=== PATIENT | male | born 2000 | race Caucasian/White ===

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

== ENCOUNTER 2021-08-16 17:06 | Emergency (ER) | payer MEDICAID, SELFPAY ==
[2021-08-16 17:18] VITALS: BP 121/76; PULSE 111; RESP 12; TEMP 36.6; O2SAT 99
--- NOTE | 2021-08-16 18:15 | NUR.NOTE ---
Patient changed into blue scrubs. Belongings inventoried. Has earrings and nose piercings in and wallet on his person.Wallet examined for safety.
[2021-08-16 18:40] LABS: Source Nasal/Nares
[2021-08-16 18:47] LABS: Abs Immature Grans 0.07 10^3/uL (0.0-0.06); Absolute Monocyte Count 1.15 10^3/uL (0.1-0.8); Basophils % 0.5; Eosinophils % 0.1; HCT 46.8 % (40.0-50.0); HGB 14.5 g/dL (13.5-17.5); Immature Grans % 0.3; Lymphocytes % 6.8; MCH 28.4 pg (27.0-33.0); MCV 91.8 fL (80-95); MPV 10.5 fL (8.0-11.0); Monocytes % 5.6; Neutrophils % 86.7; Nucleated RBC 0 %; Platelet Count 268 10^3/uL (130-400); RDW 13.2 % (11.8-14.1); RDW-SD 44.7 fL; WBC 20.58 10^3/uL (4.4-10.8)
[2021-08-16 19:12] LABS: ALT 39 U/L (16-63); AST 19 U/L (15-37); Albumin 5.2 g/dL (3.4-5.0); Alkaline Phosphatase 64 U/L (46-116); Anion Gap 11.7 mmol/L (3-11); BUN 14 mg/dL (7-18); Bilirubin, Total 1.4 mg/dL (0.2-1.0); CO2 27.3 mmol/L (21.0-32.0); Calcium 9.9 mg/dL (8.5-10.1); Chloride 102 mmol/L (98-107); Glucose 116 mg/dL (74-106); Potassium 3.7 mmol/L (3.5-5.1); Sodium 141 mmol/L (136-145); TSH (W/Ref FT4) 1.46 uIU/mL (0.36-3.74); Total Protein 8.4 g/dL (6.4-8.2)
[2021-08-16 19:13] LABS: *AMPHETAMINES SCREEN URINE Negative (Negative); *BARBITURATES SCREEN URINE Negative (Negative); *BENZODIAZEPINES SCREEN URINE Negative (Negative); Cannabinoids THC Positive (Negative); Cocaine Screen,Urine Negative (Negative); METHADONE URINE SCREEN Negative (Negative); OPIATES URINE SCREEN Negative (Negative)
[2021-08-16 19:15] LABS: Bilirubin Negative (Negative); Blood Negative (Negative); Clarity Clear (Clear); Glucose Negative (Negative); Ketones Negative (Negative); Leukocyte Esterase Negative (Negative); Nitrite Negative (Negative); Specific Gravity >= 1.030 (1.005-1.025); Urobilinogen 0.2 EU/dL (Up TO 0.2)
[2021-08-16 19:15] LABS: Absolute Eosinophil Count 0.02 10^3/uL (0.0-0.7); Absolute Neutrophil Count 17.84 10^3/uL (1.2-6.7)
[2021-08-16 19:16] LABS: Tricyclic Antidepressants Negative (Negative)
[2021-08-16 19:30] LABS: ETHANOL BLOOD < 3.0 mg/dL (<10)
[2021-08-16 19:31] LABS: Acetaminophen < 2 ug/mL (10-30)
[2021-08-16 19:31] LABS: COVID-19 PCR Negative (Negative)
--- NOTE | 2021-08-16 19:38 | W.ED.GENAD ---
Discharge Plan Disposition Patient Disposition: STILL A PATIENT Condition: Stable Discharge Details Primary Care Provider: Unknown,Unknown ED Provider: Alex Anderson Home Meds and New Rx's Prescriptions: No Action No Known Home Meds 0RF Medical Decision Making 20-year-old gentleman who presents with [facility] police on a mental health warrant for medical screening evaluation and psychiatric screening. He is initially not very forthcoming but does admit to general depression, he did make vague statements to his mother this morning saying that he does not want to live and that he could hang himself but he states that he does not mean this and he does not want to act upon this. There was concern that he wrote a letter stating that he does not want to live and all of the ways that he could kill himself. He has no acute medical concerns or complaints. Plan is to initiate a CPSO, interim safety plan, mental health evaluation and obtain routine screening laboratory values for psychiatric admission. Patient is calm, cooperative, currently has no additional questions or concerns. Laboratory values reveal nonspecific leukocytosis of 20.58. He is afebrile. He has no acute medical concerns or complaints, no meningeal signs, no cough, shortness of breath, abdominal pain, etc. No clear source of infection. Laboratory values otherwise grossly unremarkable. Covid is negative. Patient does report that his mother had recently had Covid Mental health evaluation completed, the physicians certificate emergency examination form has been completed and the second psychiatric evaluation is planned to occur sometime tomorrow Patient has been cooperative during my shift. Listening to music. Ambulating steadily to the restroom without difficulty. Medical Records Medical records reviewed: Yes I reviewed the patient's medical records. Lab Data Lab results reviewed: Yes I reviewed the patient's lab results. Labs: Laboratory Tests Range/Units 08/16/21 08/16/21 08/16/21 18:23 18:25 18:25 WBC (4.4-10.8) 10^3/uL RBC (4.36-5.78) 10^6/uL Hgb (13.5-17.5) g/dL Hct (40.0-50.0) % MCV (80-95) fL MCH (27.0-33.0) pg MCHC (32.0-36.0) % RDW (11.8-14.1) % Plt Count (130-400) 10^3/uL MPV (8.0-11.0) fL Immature Gran % Neutrophils % Lymphocytes % Monocytes % Eosinophils % Basophils % Nucleated RBC % % Absolute Neutrophils (1.2-6.7) 10^3/uL Absolute Lymphocytes (1.2-3.4) 10^3/uL Absolute Monocytes (0.1-0.8) 10^3/uL Absolute Eosinophils (0.0-0.7) 10^3/uL Absolute Basophils (0.0-0.2) 10^3/uL Sodium (136-145) mmol/L Potassium (3.5-5.1) mmol/L Chloride (98-107) mmol/L Carbon Dioxide (21.0-32.0) mmol/L Anion Gap (3-11) mmol/L BUN (7-18) mg/dL Creatinine (0.70-1.30) mg/dL Estimated GFR/1.73 m2 (mL/min/1.73m2) Glucose (74-106) mg/dL Calcium (8.5-10.1) mg/dL Total Bilirubin (0.2-1.0) mg/dL AST (15-37) U/L ALT (16-63) U/L Alkaline Phosphatase (46-116) U/L Total Protein (6.4-8.2) g/dL Albumin (3.4-5.0) g/dL TSH (0.36-3.74) uIU/mL Urine Color (Yellow) Yellow Urine Clarity (Clear) Clear Urine pH (5-8) 6.0 Ur Specific [place] (1.005-1.025) >= 1.030 H Urine Protein (Negative) mg/dL Negative Urine Ketones (Negative) mg/dL Negative Urine Blood (Negative) Negative Urine Nitrite (Negative) Negative Urine Bilirubin (Negative) Negative Urine Urobilinogen (Up TO 0.2) EU/dL 0.2 Ur Leukocyte Esterase (Negative) Negative Urine Glucose (Negative) mg/dL Negative Urine Opiates Screen (Negative) Negative Urine Methadone Screen (Negative) Negative Acetaminophen (10-30) ug/mL Ur Barbiturates Screen (Negative) Negative Ur Tricyclics Screen (Negative) Negative Ur Amphetamines Screen (Negative) Negative U Benzodiazepines Scrn (Negative) Negative Urine Cocaine Screen (Negative) Negative Ur THC Screen (Negative) Positive A Ethyl Alcohol (<10) mg/dL COVID-19 Source Nasal/Nares SARS-CoV-2 (PCR) (Negative) Negative Range/Units 08/16/21 08/16/21 18:34 18:34 WBC (4.4-10.8) 10^3/uL 20.58 H RBC (4.36-5.78) 10^6/uL 5.10 Hgb (13.5-17.5) g/dL 14.5 Hct (40.0-50.0) % 46.8 MCV (80-95) fL 91.8 MCH (27.0-33.0) pg 28.4 MCHC (32.0-36.0) % 31.0 L RDW (11.8-14.1) % 13.2 Plt Count (130-400) 10^3/uL 268 MPV (8.0-11.0) fL 10.5 Immature Gran % 0.3 Neutrophils % 86.7 Lymphocytes % 6.8 Monocytes % 5.6 Eosinophils % 0.1 Basophils % 0.5 Nucleated RBC % % 0 Absolute Neutrophils (1.2-6.7) 10^3/uL 17.84 H Absolute Lymphocytes (1.2-3.4) 10^3/uL 1.40 Absolute Monocytes (0.1-0.8) 10^3/uL 1.15 H Absolute Eosinophils (0.0-0.7) 10^3/uL 0.02 Absolute Basophils (0.0-0.2) 10^3/uL 0.10 Sodium (136-145) mmol/L 141 Potassium (3.5-5.1) mmol/L 3.7 Chloride (98-107) mmol/L 102 Carbon Dioxide (21.0-32.0) mmol/L 27.3 Anion Gap (3-11) mmol/L 11.7 H BUN (7-18) mg/dL 14 Creatinine (0.70-1.30) mg/dL 1.0 Estimated GFR/1.73 m2 (mL/min/1.73m2) >= 60.00 Glucose (74-106) mg/dL 116 H Calcium (8.5-10.1) mg/dL 9.9 Total Bilirubin (0.2-1.0) mg/dL 1.4 H AST (15-37) U/L 19 ALT (16-63) U/L 39 Alkaline Phosphatase (46-116) U/L 64 Total Protein (6.4-8.2) g/dL 8.4 H Albumin (3.4-5.0) g/dL 5.2 H TSH (0.36-3.74) uIU/mL 1.46 Urine Color (Yellow) Urine Clarity (Clear) Urine pH (5-8) Ur Specific [place] (1.005-1.025) Urine Protein (Negative) mg/dL Urine Ketones (Negative) mg/dL Urine Blood (Negative) Urine Nitrite (Negative) Urine Bilirubin (Negative) Urine Urobilinogen (Up TO 0.2) EU/dL Ur Leukocyte Esterase (Negative) Urine Glucose (Negative) mg/dL Urine Opiates Screen (Negative) Urine Methadone Screen (Negative) Acetaminophen (10-30) ug/mL < 2 Ur Barbiturates Screen (Negative) Ur Tricyclics Screen (Negative) Ur Amphetamines Screen (Negative) U Benzodiazepines Scrn (Negative) Urine Cocaine Screen (Negative) Ur THC Screen (Negative) Ethyl Alcohol (<10) mg/dL < 3.0 COVID-19 Source SARS-CoV-2 (PCR) (Negative) HPI General Mode of arrival: ambulatory. Date/Time Provider Initiated Documentation: 08/16/21 17:39. Limitations to Documentation: no limitations. Information obtained by: patient and police. HPI Narrative: This is a 20-year-old gentleman, presenting via [facility] on a mental health warrant for a medical screening evaluation and psychiatric evaluation. Patient initially tells me that he is unsure why he is here. Denies any suicidal or homicidal ideations and reports that he feels safe. He denies recent illness or trauma. He has no acute medical concerns or complaints. He does admit to marijuana use but denies alcohol or any other drug use. He does not take any medications on a daily basis. Upon speaking with [facility], I was able to obtain some collateral information. Apparently the patient has recently moved back into the house with his mother, primarily stays in his room, has had decreased appetite and overall 20 pound weight loss. Apparently he has been depressed, made some suicidal comments to his mother today about wanting to end it all and that he could hang himself. He tells me he did nothing today to actually harm himself and that although he did actually make this statement he did not mean them and does not want to act upon them. His mother believes that he wrote all of this down but has been unable to find a letter in his room. Related Data Home Medications Medication Instructions Recorded Confirmed Unknown [No Known Home Meds] 08/16/21 08/16/21 Allergies Allergy/AdvReac Type Severity Reaction Status Date / Time amoxicillin Allergy rash Verified 08/16/21 17:26 General Stated Complaint: PsychEval RIA: 2 Review of Systems Constitutional Constitutional: Denies fever(s) and Denies weakness ENT Ears, Nose, Mouth, and Throat: Denies neck pain Cardiovascular Cardiovascular: Denies chest pain and Denies dyspnea Respiratory Respiratory: Denies cough and Denies dyspnea Gastrointestinal Gastrointestinal: Denies abdominal pain, Denies nausea and Denies vomiting Musculoskeletal Musculoskeletal: Denies back pain and Denies neck pain Integumentary/Breasts Skin/Breast: Denies rash Neurologic Neurologic: Denies weakness Psychiatric Psychiatric: Reports depression and Denies homicidal ideation PFSH All Active Problems Depression (Acute) sad, withdrawn, loss of interest- no improvment with counseling - meds 05/30 Weight loss (Acute) ? depression related - labs Sadness (Acute) mild depression - will work with counselor 02/26 Routine child health exam (Acute 01/15/12) Normal weight, pediatric, BMI 5th to 84th percentile for age (Acute 11/29/14) History of penicillin allergy (Acute 01/15/12) Family History Mother Healthy adult on routine physical examination Father Healthy adult on routine physical examination Grandparent Heart disease Hyperlipidemia Mental disorder Social History Smoking/Tobacco Use Status: Former Tobacco Use Smoking risk assessment performed?: Yes Alcohol Intake: never Drug use: Occasionally Substance use type: marijuana Do you feel safe at home: Yes Do you feel safe in your relationship?: Yes Exam Const General: cooperative, healthy appearing, comfortable and no acute distress Orientation: alert, awake and oriented x3 HENMT Head: normal to inspection, normocephalic and atraumatic Face and sinus: normal facial exam Mouth: moist mucous membranes Eyes General: appearance normal, both eyes and all related structures Conjunctivae: conjunctivae normal Neck Neck: normal visual inspection, full ROM, no meningeal signs, trachea midline and supple Resp Effort & Inspection: normal respiratory effort and able to speak in complete sentences Auscultation: clear to auscultation bilaterally Cardio Rate: regular rate Rhythm: regular rhythm GI Palpation: soft and nontender Back/Spine/Pelvis Back: No back tenderness Skin General skin exam: no rashes or lesions noted Neuro General: patient alert, patient awake, patient oriented x3, moves all extremities and no focal motor deficits Cognition: normal cognition Speech: speech normal Gait: normal gait Motor: muscle tone normal throughout Sensory Exam: no sensory deficits noted Extrem General: normal to inspection and full ROM Psych Appearance: grossly normal Mental Status: mental status grossly normal Speech and Movement: speech and movement normal Mood: congruent mood Affect: normal affect Attitude: cooperative Thought Process: normal Course Vital Signs Vital signs: Vital Signs Temperature 36.6 C 08/16/21 17:18 Pulse 111 H 08/16/21 17:18 Respiratory Rate 12 08/16/21 17:18 Blood Pressure 121/76 08/16/21 17:18 Pulse Oximetry 99 08/16/21 17:18 Temperature 36.6 C 08/16/21 17:18 Temperature Source Skin 08/16/21 17:18 Pulse 111 H 08/16/21 17:18 Respiratory Rate 12 08/16/21 17:18 Respiratory Effort 08/16/21 17:27 Blood Pressure 121/76 08/16/21 17:18 Pulse Oximetry 99 08/16/21 17:18 Oxygen Delivery Method Room Air 08/16/21 17:18 Oxygen Flow Rate 0 08/16/21 17:18 Pain Level 0 08/16/21 17:18 Lab/Test Results Lab/Test Results: Laboratory Tests Range/Units 08/16/21 08/16/21 08/16/21 18:23 18:25 18:25 WBC (4.4-10.8) 10^3/uL RBC (4.36-5.78) 10^6/uL Hgb (13.5-17.5) g/dL Hct (40.0-50.0) % MCV (80-95) fL MCH (27.0-33.0) pg MCHC (32.0-36.0) % RDW (11.8-14.1) % Plt Count (130-400) 10^3/uL MPV (8.0-11.0) fL Immature Gran % Neutrophils % Lymphocytes % Monocytes % Eosinophils % Basophils % Nucleated RBC % % Absolute Neutrophils (1.2-6.7) 10^3/uL Absolute Lymphocytes (1.2-3.4) 10^3/uL Absolute Monocytes (0.1-0.8) 10^3/uL Absolute Eosinophils (0.0-0.7) 10^3/uL Absolute Basophils (0.0-0.2) 10^3/uL Sodium (136-145) mmol/L Potassium (3.5-5.1) mmol/L Chloride (98-107) mmol/L Carbon Dioxide (21.0-32.0) mmol/L Anion Gap (3-11) mmol/L BUN (7-18) mg/dL Creatinine (0.70-1.30) mg/dL Estimated GFR/1.73 m2 (mL/min/1.73m2) Glucose (74-106) mg/dL Calcium (8.5-10.1) mg/dL Total Bilirubin (0.2-1.0) mg/dL AST (15-37) U/L ALT (16-63) U/L Alkaline Phosphatase (46-116) U/L Total Protein (6.4-8.2) g/dL Albumin (3.4-5.0) g/dL TSH (0.36-3.74) uIU/mL Urine Color (Yellow) Yellow Urine Clarity (Clear) Clear Urine pH (5-8) 6.0 Ur Specific [place] (1.005-1.025) >= 1.030 H Urine Protein (Negative) mg/dL Negative Urine Ketones (Negative) mg/dL Negative Urine Blood (Negative) Negative Urine Nitrite (Negative) Negative Urine Bilirubin (Negative) Negative Urine Urobilinogen (Up TO 0.2) EU/dL 0.2 Ur Leukocyte Esterase (Negative) Negative Urine Glucose (Negative) mg/dL Negative Urine Opiates Screen (Negative) Negative Urine Methadone Screen (Negative) Negative Acetaminophen (10-30) ug/mL Ur Barbiturates Screen (Negative) Negative Ur Tricyclics Screen (Negative) Negative Ur Amphetamines Screen (Negative) Negative U Benzodiazepines Scrn (Negative) Negative Urine Cocaine Screen (Negative) Negative Ur THC Screen (Negative) Positive A Ethyl Alcohol (<10) mg/dL COVID-19 Source Nasal/Nares SARS-CoV-2 (PCR) (Negative) Negative Range/Units 08/16/21 08/16/21 18:34 18:34 WBC (4.4-10.8) 10^3/uL 20.58 H RBC (4.36-5.78) 10^6/uL 5.10 Hgb (13.5-17.5) g/dL 14.5 Hct (40.0-50.0) % 46.8 MCV (80-95) fL 91.8 MCH (27.0-33.0) pg 28.4 MCHC (32.0-36.0) % 31.0 L RDW (11.8-14.1) % 13.2 Plt Count (130-400) 10^3/uL 268 MPV (8.0-11.0) fL 10.5 Immature Gran % 0.3 Neutrophils % 86.7 Lymphocytes % 6.8 Monocytes % 5.6 Eosinophils % 0.1 Basophils % 0.5 Nucleated RBC % % 0 Absolute Neutrophils (1.2-6.7) 10^3/uL 17.84 H Absolute Lymphocytes (1.2-3.4) 10^3/uL 1.40 Absolute Monocytes (0.1-0.8) 10^3/uL 1.15 H Absolute Eosinophils (0.0-0.7) 10^3/uL 0.02 Absolute Basophils (0.0-0.2) 10^3/uL 0.10 Sodium (136-145) mmol/L 141 Potassium (3.5-5.1) mmol/L 3.7 Chloride (98-107) mmol/L 102 Carbon Dioxide (21.0-32.0) mmol/L 27.3 Anion Gap (3-11) mmol/L 11.7 H BUN (7-18) mg/dL 14 Creatinine (0.70-1.30) mg/dL 1.0 Estimated GFR/1.73 m2 (mL/min/1.73m2) >= 60.00 Glucose (74-106) mg/dL 116 H Calcium (8.5-10.1) mg/dL 9.9 Total Bilirubin (0.2-1.0) mg/dL 1.4 H AST (15-37) U/L 19 ALT (16-63) U/L 39 Alkaline Phosphatase (46-116) U/L 64 Total Protein (6.4-8.2) g/dL 8.4 H Albumin (3.4-5.0) g/dL 5.2 H TSH (0.36-3.74) uIU/mL 1.46 Urine Color (Yellow) Urine Clarity (Clear) Urine pH (5-8) Ur Specific [place] (1.005-1.025) Urine Protein (Negative) mg/dL Urine Ketones (Negative) mg/dL Urine Blood (Negative) Urine Nitrite (Negative) Urine Bilirubin (Negative) Urine Urobilinogen (Up TO 0.2) EU/dL Ur Leukocyte Esterase (Negative) Urine Glucose (Negative) mg/dL Urine Opiates Screen (Negative) Urine Methadone Screen (Negative) Acetaminophen (10-30) ug/mL < 2 Ur Barbiturates Screen (Negative) Ur Tricyclics Screen (Negative) Ur Amphetamines Screen (Negative) U Benzodiazepines Scrn (Negative) Urine Cocaine Screen (Negative) Ur THC Screen (Negative) Ethyl Alcohol (<10) mg/dL < 3.0 COVID-19 Source SARS-CoV-2 (PCR) (Negative)
--- NOTE | 2021-08-16 19:46 | PDOC.MHCN_ITS ---
Date of service: 08/16/21 Time of Service: 19:49 Mental Health Crisis Note Presenting Issue How did you arrive at the ED and why did you come: Client arrived at [facility] ED via [place] [employer] after MH warrant was executed. Client is seen tonight for F2F assessment. Precipitating Factors Client denies SI, however reports that he did state earlier that he would hang himself today at 4:52p. Client rates his intent 2/10 and denies current plan. Disposition BEHAVIOR: Client is sitting up in bed dressed in proper paper hospital attire when this field underwriter arrives via zoom. Client appears to be agitated and withdrawn. Client does not understand why he is there and become more agitated when this field underwriter tries to explain it to him. EYE CONTACT: Client makes minimal eye contact. MOOD: Clients mood appears to be depressed and withdrawn. AFFECT: Flat affect, congruent with mood. APPETITE: Client reports that his appetite has not been good, reporting that he is not eating full meals only grazing. SLEEP(trouble falling/staying asleep: Client reports that his sleep has been ok, reporting that he has been getting about 6 hours of sleep a night. Plan Client will remain at [facility] ED pending 2nd certification by a psychiatrist. Physician product development assistant will send exibit b and physician piece to [facility]. Client will be reassessed daily until placement can be secured. Signature Clinician's Name/Title: Padmini Shearer [facility] Emergency Clinician
[2021-08-16 22:32] VITALS: BP 124/70; PULSE 76; RESP 16; TEMP 37; O2SAT 97
[2021-08-17 08:46] LABS: Abs Immature Grans 0.01 10^3/uL (0.0-0.06); Absolute Basophil Count 0.08 10^3/uL (0.0-0.2); Absolute Eosinophil Count 0.08 10^3/uL (0.0-0.7); Absolute Lymphocyte Count 1.84 10^3/uL (1.2-3.4); Absolute Monocyte Count 0.35 10^3/uL (0.1-0.8); Basophils % 1.3; Eosinophils % 1.3; HCT 45.6 % (40.0-50.0); HGB 14.6 g/dL (13.5-17.5); Immature Grans % 0.2; Lymphocytes % 29.4; MCH 28.9 pg (27.0-33.0); MCV 90.3 fL (80-95); MPV 10.3 fL (8.0-11.0); Monocytes % 5.6; Neutrophils % 62.2; Nucleated RBC 0 %; Platelet Count 255 10^3/uL (130-400); RBC 5.05 10^6/uL (4.36-5.78); RDW 13.2 % (11.8-14.1); RDW-SD 43.8 fL; WBC 6.26 10^3/uL (4.4-10.8)
[2021-08-17 08:47] LABS: Absolute Neutrophil Count 3.89 10^3/uL (1.2-6.7)
--- NOTE | 2021-08-17 09:35 | W.EDPROG ---
Date of service: 08/17/21 Time of Service: 09:36 Medical Decision Making 0730 --please see previous providers notes for initial presentation, exam and plan. Case endorsed with plan for psychiatrist to complete second certification this morning. 0900 --patient is requesting STD testing. He is denying any urinary symptoms and declines any prophylactic treatment for STD. Will obtain a contaminated urine sample and test for GC chlamydia. A repeat CBC was obtained due to initial leukocytosis and white blood cell count is within normal limits. 1010 --patient complained of anxiety and requested medication. A dose of Ativan was ordered and he refused stating to the nurse I am not going to be forced to take medications. 1600 --second certificate completed. Case endorsed to Dr. Holguin while awaiting placement. 2320 patient resting comfortably no acute distress. Patient no longer endorsing SI or HI. Calm cooperative. Patient requesting to speak with psychiatric team to discuss the possibility of him going home. Have placed page to Dr. Weeks's team, likely to eval in AM SJ: No documentation on this progress note please see my previous note for this patient's visit on 08/18/2021 Misty Harris: Did not see, evaluate, or treat this patient. Medical Records Medical records reviewed: Yes I reviewed the patient's medical records. Sign Out Sign Out Data: Sign Out Comment: EE. Depression with SI. Has been calm and cooperative. Nonspecific leukocytosis, no signs of infection, plan is to recheck CBC. Awaiting second mental health evaluation tomorrow morning Last updated by Alex Anderson PA at 08/16/21 23:09 Sign Out Comment: Patient remains on EE. Patient stable throughout the night. Pending placement. No interventions throughout the evening. Last updated by Héctor Eller DO at 08/20/21 06:25 Sign Out Comment: 2nd cert and repeat CBC pending No issues overnight Last updated by Bryan Barrientos MD at 08/17/21 06:42 Sign Out Comment: Patient anxious but otherwise cooperative today. He was offered Ativan p.o. but declined. Second certificate completed. Awaiting placement. Last updated by Quita Hamm DO at 08/17/21 15:57 Sign Out Comment: two certifications completed; patient now denying SI/HI, wants to talk to psych team to negotiate dc home; [facility] has denied inpatient admission; page has been placed to Dr. Weeks for re-evaluation. Last updated by Alan Holguin MD at 08/17/21 23:39 Sign Out Comment: No issues or complications overnight. Patient stable throughout the night and slept well. Patient would like to talk to psychiatric team to negotiate discharge home. Patient currently denying suicidal and homicidal ideations. Last updated by Héctor Eller DO at 08/18/21 08:22 Sign Out Comment: Patient is here for involuntary hold. Pending inpatient psych placement. He is requesting to have a shower. In-house in bed not available till after 7 PM. Has been evaluated by Dr. Wasserman with [facility] and has had 2 an EKG as evaluation today. They will reevaluate tomorrow. He has been unwilling with medication management. Anxious but otherwise cooperative. Last updated by Es Marrufo at 08/18/21 15:39 Sign Out Comment: Patient remains in emergency department with anxiety but family is at bedside and patient has continued to be calm and cooperative. Patient does state some continued suicidal ideations but is otherwise stable. Patient signed out to Dr. Eller pending bed availability. Last updated by Segun Ascencio NP at 08/18/21 23:38 Sign Out Comment: Patient stable throughout the night. Pending placement in mental health for evaluation. No interventions throughout the evening. Last updated by Héctor Eller DO at 08/19/21 08:19 Sign Out Comment: Remains EE, seen by HARPREET chong today. Last updated by Bryan Barrientos MD at 08/19/21 18:58 Discharge Plan Disposition Patient Disposition: HOME Condition: Improving Discharge Details Clinical Impression: Major depression, Sadness Primary Care Provider: Unknown,Unknown ED Provider: Segun Ascencio Home Meds and New Rx's Prescriptions: No Action No Known Home Meds 0RF Discharge Instructions Instructions: Depression (ED), Help Prevent Suicide (ED), Suicide Prevention (ED) Additional Instructions: Please follow the provided safety plan which includes daily check ins with [facility] [employer]. Otherwise used discussed coping mechanisms and follow safety plan for safe living environment. If there are any further concerns with worsening symptoms, return of suicidality, or concerning behavior return immediately to the emergency department for reassessment and further reestablishment of psychiatric plan of care. It will also be important for you to follow-up with your primary care provider later this week for medical reassessment and consideration of possible prescription medications to help with your symptoms. We have faxed information to [facility] and feel free to contact their office tomorrow for arrangement of follow-up appointment. Referrals: [facility] [Provider Group] - 5 days Discharge Data Discharge Date/Time-TO BE ENTERED AT DEPARTURE: 08/20/21 11:09
[2021-08-17 09:50] LABS: Bilirubin Negative (Negative); Blood Negative (Negative); Clarity Clear (Clear); Glucose Negative (Negative); Ketones Negative (Negative); Leukocyte Esterase Negative (Negative); Nitrite Negative (Negative); Specific Gravity >= 1.030 (1.005-1.025); pH 6.5 (5-8)
[2021-08-17 09:59] LABS: Bacteria Negative HPF (Negative); C & S Indicated? No; Casts 0-2 Hyaline LPF (Negative); Crystals Negative HPF (Negative); Epithelial Cells Rare HPF (Negative); Mucus Heavy (Negative); RBC Negative HPF (0-2); WBC Negative HPF (0-5)
--- NOTE | 2021-08-17 10:48 | PDOC.MHCN ---
Date of service: 08/17/21 Time of Service: 09:48 Mental Health Crisis Note Presenting Issue How did you arrive at the ED and why did you come: Client arrived at [facility] Ed via police after a MH warrant was executed. Client is seen this morning for daily assessment while awiting for 2nd certification. Precipitating Factors Client currently denies SI, stating I want to punch the wall or bang me head against the wall all because I am in here. I don't know how this is supposed to be helping me, it is making me feel worse. Disposition BEHAVIOR: Client is sitting up in hospital bed dressed in proper paper hospital attire when this expert medical writer arrives via zoom. Client appears to be agitated and states I don't get what the point of any of this is, I didn't want to kill myself before but if I sit in this room much longer I will. I am going to lose my shit if I am stuck in here for more than 2 more hours. EYE CONTACT: Client makes minimal eye contact. MOOD: Clients mood appears to be agitated and withdrawn. AFFECT: labile APPETITE: Client reports that he has not eaten since being at the hospital, then states that he ate something last night but can't remember what it was. SLEEP(trouble falling/staying asleep: Client states he slept about 1 hour last night. Plan Client will remain at [facility] ED pending 2nd certification by a psychiatrist that will happen later today. Client will be re-assessed by [facility] ES 2x daily until placement is secured. Safety plan in place with ED staff. Signature Clinician's Name/Title: Padmini Shearer, [facility] Emergency Clinician.
--- NOTE | 2021-08-17 13:45 | NUR.NOTE ---
Nursing Note: Pt talking with Mental Health for re-cert at this time, CPSO in place, continue to monitor.
--- NOTE | 2021-08-17 16:17 | PDOC.MHCN_ITS ---
Date of service: 08/17/21 Time of Service: 13:15 Mental Health Crisis Note Presenting Issue How did you arrive at the ED and why did you come: Client arrived at [facility] ED on 08/16/21 after a MH warrant was executed. Client is seen today for 2nd certification by a psychiatrist from [facility]. Precipitating Factors Client states that he has depression, and used to feel suicidal however is denying it at this moment. Disposition BEHAVIOR: Client is withdrawn, however does engage in conversation with psychiatrist. EYE CONTACT: Client makes fair eye contact. MOOD: Clients mood appears to be withdrawn and hopeless. AFFECT: Clients affect is flat. APPETITE: Did not assess. SLEEP(trouble falling/staying asleep: Did not assess. Plan Psychiatrist signed 2nd certification. Client will remain at [facility] ED on involuntary status pending admission to an inpatient facility. [place] [facility], [facility], and [facility]. Signature Clinician's Name/Title: JONATHAN Ramos Emergency Clinician
[2021-08-17 21:00] VITALS: BP 123/74; PULSE 69; RESP 16; TEMP 36.1; O2SAT 96
--- NOTE | 2021-08-17 21:14 | NUR.NOTE ---
code elvira was not called, erroneous entry- was unable to remove the check hansel. TONEYB
--- NOTE | 2021-08-18 08:40 | PDOC.MHCN_ITS ---
<Zain Jackson - Last Filed: 08/19/21 09:28> Date of service: 08/18/21 Time of Service: 08:40 Mental Health Crisis Note <Zain Jackson - Last Filed: 08/19/21 09:28> Presenting Issue How did you arrive at the ED and why did you come: Client arrived by [facility] after MH warrant was issued for immediate concerns of client safety. Precipitating Factors Client denies SI/HI but reports being in ED is making him have thoughts of wanting to bash his head against the torres. Disposition BEHAVIOR: Client is cooperative but begins to shutdown when told his second certification passe EYE CONTACT: Normal. MOOD: Stressed and anxious AFFECT: Congruent with mood. APPETITE: Client reports minimal appetite due to anxiety. SLEEP(trouble falling/staying asleep: Client reports he slept better last night because his mom was there. Plan Client is on EE and will stay at [facility] untill involuntary placement can be found. Referrals have been sent to [facility], [facility], [facility], and [facility]. Client will be reassessed twice daily while awaiting placement by [facility]. Signature Clinician's Name/Title: Zain Jackson BA <Misty Harris MD - Last Filed: 08/21/21 13:11> Signature Clinician's Name/Title: Zain Harris: I did not see, evaluate, or treat this patient.
--- NOTE | 2021-08-18 08:45 | ED.PROG_ITS ---
Date of service: 08/18/21 Time of Service: 08:45 Medical Decision Making 0846: August 18, 2021:SJ: Care assumed from provider (Jasiel Eller DO) Please see their initial HPI, PE, and documentation. Discussed patient details and case and pending workup and disposition. Patient is hemodynamically stable, and alert and oriented. Patient safety observer is at bedside, patient is in clear view - of nurses station. Patient is ambulatory to the bathroom without assistance. Per staffing mgr patient is requesting to leave and gather his things. [facility] contacted for reeval. Zain with [facility] is on phone to speak with patient now. 0903: According to Zain with [facility] patient is becoming angry, anxious, distrustful. Patient is requesting for us to call his father Josette to update him. However his father is not on the HIPAA list. Patient does have a cell phone in there with him. Care management paged by corrections unit supervisor to establish a safety plan. There is order for lorazepam 0.5 mg p.o. 0911: Spoke with patient regarding plan of care he verbalizes understanding that he is on a hold and at this time cannot leave. I did offer lorazepam again which patient declined. He is concerned because he has a history of being addicted to medications. 0950: Spoke with patients Father Piero [phone] he recommends a nicotine patch as patient is nicotine addicted and see addicted. I did inform him that the plan is to establish a care plan later on today with care management. At this time patient his mother is at the bedside. He is requesting to come visit and bring patient abdominals. Will order a nicotine patch. Informed by staffing mgr patient does have a Nicotrol device in the room with him. 1049: Spoke with Dr. Fatima psychiatrist with the [facility], discussed patient case and details. He reports that he will speak with patient around noon today. 1230: Dr. Fatima psychiatrist at bedside via Zoom for telehealth meeting. I will performed with warehouse engineer and care management and primary nurse. We did determine the need for transparency and patient needs to be aware that if he does get a room upstairs he will not be allowed to have his cell phone at 1 visit or time. Can either have mom visit or dad visit. Please see care management safety plan. 1305: Spoke with Dr. Fatima with [facility] psychiatry who recommends his recommendation for Wellbutrin XL 150 mg daily however he also states that according to his assessment patient is not willing to discuss medication op tions. He states that the mom and patient reiterated to him that there was a miscommunication and misunderstanding from the events earlier regarding the cell phone and the suicidal statements made by the patient which he wrote he would hang him self at 4:52 PM he is willing to speak with mental health if they desire to discuss options. At this time we will continue to work with [facility] and have ongoing conversations about inpatient placement and or disposition. 1630: Care is to be handed off to oncoming provider Marco Antonio Ascencio SOFTWARE TEST DEVELOPER pending inpatient psych placement. Patient case and details discussed with him. According to Tea Leaf Reader Ailyn, no In-House availability for a bed until after 7pm. Patient has remained calm, cooperative and hemodynamically stable throughout stay. This note was created using Weebly dictation system. Please disregard any typos, oddities of phrase, or grammatical errors. Misty Harris: Pt was signed out to Marco Antonio Ascencio. I was not asked to see this patient, and I did not see, evaluate, or treat this patient. Lab Data Lab results reviewed: Yes I reviewed the patient's lab results. Lab results narrative: Laboratory Tests Range/Units 08/16/21 08/16/21 08/16/21 18:23 18:25 18:25 WBC (4.4-10.8) 10^3/uL RBC (4.36-5.78) 10^6/uL Hgb (13.5-17.5) g/dL Hct (40.0-50.0) % MCV (80-95) fL MCH (27.0-33.0) pg MCHC (32.0-36.0) % RDW (11.8-14.1) % Plt Count (130-400) 10^3/uL MPV (8.0-11.0) fL Immature Gran % Neutrophils % Lymphocytes % Monocytes % Eosinophils % Basophils % Nucleated RBC % % Absolute Neutrophils (1.2-6.7) 10^3/uL Absolute Lymphocytes (1.2-3.4) 10^3/uL Absolute Monocytes (0.1-0.8) 10^3/uL Absolute Eosinophils (0.0-0.7) 10^3/uL Absolute Basophils (0.0-0.2) 10^3/uL Sodium (136-145) mmol/L Potassium (3.5-5.1) mmol/L Chloride (98-107) mmol/L Carbon Dioxide (21.0-32.0) mmol/L Anion Gap (3-11) mmol/L BUN (7-18) mg/dL Creatinine (0.70-1.30) mg/dL Estimated GFR/1.73 m2 (mL/min/1.73m2) Glucose (74-106) mg/dL Calcium (8.5-10.1) mg/dL Total Bilirubin (0.2-1.0) mg/dL AST (15-37) U/L ALT (16-63) U/L Alkaline Phosphatase (46-116) U/L Total Protein (6.4-8.2) g/dL Albumin (3.4-5.0) g/dL TSH (0.36-3.74) uIU/mL Urine Color (Yellow) Yellow Urine Clarity (Clear) Clear Urine pH (5-8) 6.0 Ur Specific [place] (1.005-1.025) >= 1.030 H Urine Protein (Negative) mg/dL Negative Urine Ketones (Negative) mg/dL Negative Urine Blood (Negative) Negative Urine Nitrite (Negative) Negative Urine Bilirubin (Negative) Negative Urine Urobilinogen (Up TO 0.2) EU/dL 0.2 Ur Leukocyte Esterase (Negative) Negative Urine RBC (0-2) HPF Urine WBC (0-5) HPF Ur Epithelial Cells (Negative) HPF Urine Crystals (Negative) HPF Urine Bacteria (Negative) HPF Urine Casts (Negative) LPF Urine Mucus (Negative) Ur Culture Indicated? Urine Glucose (Negative) mg/dL Negative Urine Opiates Screen (Negative) Negative Urine Methadone Screen (Negative) Negative Acetaminophen (10-30) ug/mL Ur Barbiturates Screen (Negative) Negative Ur Tricyclics Screen (Negative) Negative Ur Amphetamines Screen (Negative) Negative U Benzodiazepines Scrn (Negative) Negative Urine Cocaine Screen (Negative) Negative Ur THC Screen (Negative) Positive A Ethyl Alcohol (<10) mg/dL Chlamydia DNA Probe Chlamydia/GC DNA Source COVID-19 Source Nasal/Nares SARS-CoV-2 (PCR) (Negative) Negative N.gonorrhoeae DNA Probe Range/Units 08/16/21 08/16/21 08/17/21 18:34 18:34 08:40 WBC (4.4-10.8) 10^3/uL 20.58 H 6.26 D RBC (4.36-5.78) 10^6/uL 5.10 5.05 Hgb (13.5-17.5) g/dL 14.5 14.6 Hct (40.0-50.0) % 46.8 45.6 MCV (80-95) fL 91.8 90.3 MCH (27.0-33.0) pg 28.4 28.9 MCHC (32.0-36.0) % 31.0 L 32.0 RDW (11.8-14.1) % 13.2 13.2 Plt Count (130-400) 10^3/uL 268 255 MPV (8.0-11.0) fL 10.5 10.3 Immature Gran % 0.3 0.2 Neutrophils % 86.7 62.2 Lymphocytes % 6.8 29.4 Monocytes % 5.6 5.6 Eosinophils % 0.1 1.3 Basophils % 0.5 1.3 Nucleated RBC % % 0 0 Absolute Neutrophils (1.2-6.7) 10^3/uL 17.84 H 3.89 Absolute Lymphocytes (1.2-3.4) 10^3/uL 1.40 1.84 Absolute Monocytes (0.1-0.8) 10^3/uL 1.15 H 0.35 Absolute Eosinophils (0.0-0.7) 10^3/uL 0.02 0.08 Absolute Basophils (0.0-0.2) 10^3/uL 0.10 0.08 Sodium (136-145) mmol/L 141 Potassium (3.5-5.1) mmol/L 3.7 Chloride (98-107) mmol/L 102 Carbon Dioxide (21.0-32.0) mmol/L 27.3 Anion Gap (3-11) mmol/L 11.7 H BUN (7-18) mg/dL 14 Creatinine (0.70-1.30) mg/dL 1.0 Estimated GFR/1.73 m2 (mL/min/1.73m2) >= 60.00 Glucose (74-106) mg/dL 116 H Calcium (8.5-10.1) mg/dL 9.9 Total Bilirubin (0.2-1.0) mg/dL 1.4 H AST (15-37) U/L 19 ALT (16-63) U/L 39 Alkaline Phosphatase (46-116) U/L 64 Total Protein (6.4-8.2) g/dL 8.4 H Albumin (3.4-5.0) g/dL 5.2 H TSH (0.36-3.74) uIU/mL 1.46 Urine Color (Yellow) Urine Clarity (Clear) Urine pH (5-8) Ur Specific [place] (1.005-1.025) Urine Protein (Negative) mg/dL Urine Ketones (Negative) mg/dL Urine Blood (Negative) Urine Nitrite (Negative) Urine Bilirubin (Negative) Urine Urobilinogen (Up TO 0.2) EU/dL Ur Leukocyte Esterase (Negative) Urine RBC (0-2) HPF Urine WBC (0-5) HPF Ur Epithelial Cells (Negative) HPF Urine Crystals (Negative) HPF Urine Bacteria (Negative) HPF Urine Casts (Negative) LPF Urine Mucus (Negative) Ur Culture Indicated? Urine Glucose (Negative) mg/dL Urine Opiates Screen (Negative) Urine Methadone Screen (Negative) Acetaminophen (10-30) ug/mL < 2 Ur Barbiturates Screen (Negative) Ur Tricyclics Screen (Negative) Ur Amphetamines Screen (Negative) U Benzodiazepines Scrn (Negative) Urine Cocaine Screen (Negative) Ur THC Screen (Negative) Ethyl Alcohol (<10) mg/dL < 3.0 Chlamydia DNA Probe Chlamydia/GC DNA Source COVID-19 Source SARS-CoV-2 (PCR) (Negative) N.gonorrhoeae DNA Probe Range/Units 08/17/21 08/17/21 09:38 09:40 WBC (4.4-10.8) 10^3/uL RBC (4.36-5.78) 10^6/uL Hgb (13.5-17.5) g/dL Hct (40.0-50.0) % MCV (80-95) fL MCH (27.0-33.0) pg MCHC (32.0-36.0) % RDW (11.8-14.1) % Plt Count (130-400) 10^3/uL MPV (8.0-11.0) fL Immature Gran % Neutrophils % Lymphocytes % Monocytes % Eosinophils % Basophils % Nucleated RBC % % Absolute Neutrophils (1.2-6.7) 10^3/uL Absolute Lymphocytes (1.2-3.4) 10^3/uL Absolute Monocytes (0.1-0.8) 10^3/uL Absolute Eosinophils (0.0-0.7) 10^3/uL Absolute Basophils (0.0-0.2) 10^3/uL Sodium (136-145) mmol/L Potassium (3.5-5.1) mmol/L Chloride (98-107) mmol/L Carbon Dioxide (21.0-32.0) mmol/L Anion Gap (3-11) mmol/L BUN (7-18) mg/dL Creatinine (0.70-1.30) mg/dL Estimated GFR/1.73 m2 (mL/min/1.73m2) Glucose (74-106) mg/dL Calcium (8.5-10.1) mg/dL Total Bilirubin (0.2-1.0) mg/dL AST (15-37) U/L ALT (16-63) U/L Alkaline Phosphatase (46-116) U/L Total Protein (6.4-8.2) g/dL Albumin (3.4-5.0) g/dL TSH (0.36-3.74) uIU/mL Urine Color (Yellow) Dark Yellow Urine Clarity (Clear) Clear Urine pH (5-8) 6.5 Ur Specific [place] (1.005-1.025) >= 1.030 H Urine Protein (Negative) mg/dL Trace H Urine Ketones (Negative) mg/dL Negative Urine Blood (Negative) Negative Urine Nitrite (Negative) Negative Urine Bilirubin (Negative) Negative Urine Urobilinogen (Up TO 0.2) EU/dL 1.0 H Ur Leukocyte Esterase (Negative) Negative Urine RBC (0-2) HPF Negative Urine WBC (0-5) HPF Negative Ur Epithelial Cells (Negative) HPF Rare Urine Crystals (Negative) HPF Negative Urine Bacteria (Negative) HPF Negative Urine Casts (Negative) LPF 0-2 Hyaline Urine Mucus (Negative) Heavy Ur Culture Indicated? No Urine Glucose (Negative) mg/dL Negative Urine Opiates Screen (Negative) Urine Methadone Screen (Negative) Acetaminophen (10-30) ug/mL Ur Barbiturates Screen (Negative) Ur Tricyclics Screen (Negative) Ur Amphetamines Screen (Negative) U Benzodiazepines Scrn (Negative) Urine Cocaine Screen (Negative) Ur THC Screen (Negative) Ethyl Alcohol (<10) mg/dL Chlamydia DNA Probe Cancelled Chlamydia/GC DNA Source Cancelled COVID-19 Source SARS-CoV-2 (PCR) (Negative) N.gonorrhoeae DNA Probe Cancelled Exam Const General: cooperative, healthy appearing, well developed and well groomed Nutritional Appearance: thin Orientation: alert, awake and oriented x3 Limitations: behavioral limitations Psych Appearance: well kempt Speech and Movement: speech and movement normal Mood: irritable mood Affect: normal affect Attitude: cooperative and guarded Thought Process: normal Thought Content: suicidality (As per HPI) Sign Out Sign Out Data: Sign Out Comment: EE. Depression with SI. Has been calm and cooperative. Nonspecific leukocytosis, no signs of infection, plan is to recheck CBC. Awaiting second mental health evaluation tomorrow morning Last updated by Alex Anderson PA at 08/16/21 23:09 Sign Out Comment: Patient remains on EE. Patient stable throughout the night. Pending placement. No interventions throughout the evening. Last updated by Héctor Eller DO at 08/20/21 06:25 Sign Out Comment: 2nd cert and repeat CBC pending No issues overnight Last updated by Bryan Barrientos MD at 08/17/21 06:42 Sign Out Comment: Patient anxious but otherwise cooperative today. He was offered Ativan p.o. but declined. Second certificate completed. Awaiting placement. Last updated by Quita Hamm DO at 08/17/21 15:57 Sign Out Comment: two certifications completed; patient now denying SI/HI, wants to talk to psych team to negotiate dc home; [facility] has denied inpatient admission; page has been placed to Dr. Weeks for re-evaluation. Last updated by Alan Holguin MD at 08/17/21 23:39 Sign Out Comment: No issues or complications overnight. Patient stable throughout the night and slept well. Patient would like to talk to psychiatric team to negotiate discharge home. Patient currently denying suicidal and homicidal ideations. Last updated by Héctor Eller DO at 08/18/21 08:22 Sign Out Comment: Patient is here for involuntary hold. Pending inpatient psych placement. He is requesting to have a shower. In-house in bed not available till after 7 PM. Has been evaluated by Dr. Fatima with [facility] and has had 2 an EKG as evaluation today. They will reevaluate tomorrow. He has been unwilling with medication management. Anxious but otherwise cooperative. Last updated by Es Marrufo at 08/18/21 15:39 Sign Out Comment: Patient remains in emergency department with anxiety but family is at bedside and patient has continued to be calm and cooperative. Patient does state some continued suicidal ideations but is otherwise stable. Patient signed out to Dr. Eller pending bed availability. Last updated by Segun Ascencio, SOFTWARE TEST DEVELOPER at 08/18/21 23:38 Sign Out Comment: Patient stable throughout the night. Pending placement in mental health for evaluation. No interventions throughout the evening. Last updated by Héctor Eller DO at 08/19/21 08:19 Sign Out Comment: Remains EE, seen by [facility] chong today. Last updated by Bryan Barrientos MD at 08/19/21 18:58 Discharge Plan Disposition Patient Disposition: HOME Condition: Improving Discharge Details Clinical Impression: Major depression, Sadness Primary Care Provider: Unknown,Unknown ED Provider: Segun Ascencio Home Meds and New Rx's Prescriptions: No Action No Known Home Meds 0RF Discharge Instructions Instructions: Depression (ED), Help Prevent Suicide (ED), Suicide Prevention (ED) Additional Instructions: Please follow the provided safety plan which includes daily check ins with [facility] human services. Otherwise used discussed coping mechanisms and follow safety plan for safe living environment. If there are any further concerns with worsening symptoms, return of suicidality, or concerning behavior return immediately to the emergency department for reassessment and further reestablishment of psychiatric plan of care. It will also be important for you to follow-up with your primary care provider later this week for medical reassessment and consideration of possible prescription medications to help with your symptoms. We have faxed information to [facility] and feel free to contact their office tomorrow for arrangement of follow-up appointment. Referrals: [facility] [Provider Group] - 5 days Discharge Data Discharge Date/Time-TO BE ENTERED AT DEPARTURE: 08/20/21 11:09
--- NOTE | 2021-08-18 09:17 | PDOC.CMSAFED ---
- If Service Date Differs Date of service: 08/18/21 Time of Service: 09:17 Care Management Safety Plan Status: Involuntary - Reason for Wait Reason for Wait: Inpatient Admission INVOLUNTARY FOR INPATIENT PSYCHIATRIC STABILIZATION. Ijeoma is a 20 year old male who presented to the ED via [facility] on a mental health warrant for EE. He reportedly made suicidal statements to his mother and wrote a letter stating that he wants to end it all and explaining how he would do that, specifically by hanging himself. Per his mother, he has been depressed, decreased appetite and lost 20 pound weight loss. Per report, he recently moved in with his mother after a falling out with his friend/roommate. Ijeoma had a second certification which was upheld by the Psychiatrist from [facility]. He has also been seen by Dr. Weeks, who asked for his EE status to be reconsidered. He is screened twice daily by [facility], once by a [facility]. Leticia HP, met with him and agreed that he should remain held involuntarily. There was a huddle this afternoon with FENG Suggs; MAAURI Whitten; AMAURI Robertson Eyedotter; and CARLIE Bradshaw. There was a discussion about him moving to M/S, if he remains stable. Concerns that were voiced were that he currently has his cell phone in the room, which would need to be removed PRIOR to him moving upstairs. Also, he is allowed a consistent visitor in the ED, and his mother has been with him overnight. If he moves to M/S, the visitation will be restricted to 12-6pm, and this would need to be made clear to both the patient and his mother. At this time, he will remain in the ED. Safety plan has been established to meet the needs of the patient, and consideration of the care team, to adhere to patient goals, identify restrictions based on behavioral status, address nutrition, and determine allowed personal belongings, tools for hygiene and personal care. Determine level of activity including ambulation, level of supervision, visitors, and determine privileges based on behaviors and level of engagement by pt. SAFETY PLAN: 1. Will remain on SI/HI precautions. In Paper Clothes 2. Will remain in room under direct supervision of one-on-one staff at all times provided by [employer]; WILLIAM, ROBIN night shift supervisor. 3. May have paper cups, plates, finger foods as well as a cardboard spoon 4. Follow [facility] Management of the Admitted Behavioral Health Patient policy. 5. Comfort bath system or shower, at RN discretion. 6. Personal belongings at RN discretion. 7. Visitors: Mother, at RN discretion. 8. Activities: soft cart items, TV, other activity items at RN discretion. 9. Bathroom privileges with supervision while in ED, if on M/S, with no limitation. 10. Phone: Ingoing/Outgoing calls at RN discretion. 11. Due to INVOLUNTARY status, patient is being held at [facility] by the Department of Mental Health ([facility]) until 2nd certification by [facility] Psychiatrist can be performed (within 24 hours). Staff will provide de-escalation support (CPI) as needed. If patient wishes to leave [facility], staff will contact [facility] Crisis Screener ([phone]) and On-Call Carpet Finishing Supervisor ([phone]) as soon as possible. In the event of elopement, notify [facility] Police ([phone]). Patient is currently involuntarily at [facility]. [facility] Frontline Cpht will continue seeking placement. Please contact the Customer Service Sales Associate Carpet Finishing Supervisor ([phone]) for any needed changes to Safety Plan. Safety plan has been provided to interdepartmental care team. Patient will be transported by oncologist at time of discharge.
--- NOTE | 2021-08-18 13:21 | W.PSYCHCONSU ---
Date of service: 08/18/21 Time of Service: 13:21 History of Present Illness History of Present Illness Chief Complaint: It was all a miscommunicarion Narrative: 24 hour telepsychiatry consulation requested by Dr. Cisneros for evaluation of depression and treatment recommendations. Seen through telemdicine at [facility] accompanied by his mother. Consent for telemedicine obtained. He was admitted to the ED on a mental health warrant that was executed after his mother believed that he intended to commit suicide by hanging at 4:52 PM on August. As a result, he was brought to ED by Evita JAMES, EE was initiated by [facility] and recertified by [facility] psychiatrist. On exam today, he is insisting that all of the events that led to his being brought in and held are a misunderstanding based on micocommunication and that continued admission in the ED Is only make things worse. He acknowledges a history of depression starting in middle school that was worsened at around age 15. He took fluoxetine for about a month and he feels that it make him feel more angry. He endorses a history of suicidal ideation, but currently denies any SI, plan, or intent. He acknowledges often writing down his suicida thoughts and often detailing plans on how he would end his life. He indicates he wrote the things down in his phone as a way of coping with my feelings. He acknowledges considerable difficulty articulating and communicating his emotional states to others, partly in an effort to not be a burden to others. He denies any past suicide attempts, but described some punchingof torres and head banging recently out of extreme fusrtraion with his current situation. He denies any symptoms of henny or psychosis. He reports two past concussions, bother sports related. He currently is living with his mother for the last 6 weeks. He had been living with a a good friend with whom he abruptly had a falling out. He indicates his friend's girlfriend was moving out and he helped her move out and subsequently had sex with her, which led to the rupture in the friendship. He moved in with his mother ands experienced worsened depressive symptoms then with low mood, poor sleep, low energy, decreased appetite and weight loss, and feelings of guilt more prominent. He and his mother reports that in the last month or so, he has been eating and sleeping better, and showed more initiative and was able to get a job at [employer]. Substance use is positive for nicotine and cannabis. He denies using alcohol. He has used psychedleics in the past as well as misused prescription opioids and benzodiazepines to the point he would experience mild withdrawal symptoms upon stopping. He was ableto stop onhis opwn at about age 16 after being sent to summer camp. School has been experienced as a waste of time. He denies any learning disabilities, attention, or behavior problems in school and completed about but 1-2 credits of high school. 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 He identifies running, lifting weights, writing, playing music as primary coping strategies. He has few social supports right now asisde from one friernd and his mother. We discuss treatment options and he insists that this isn't helpful. I recommend a trial of bupropion as potentially beneficial and he indicates I'll think about taking in a week of two after I get out of here. I discuss the case with the attending and share the perspective articulated by both the patient and his mother that there appears to have been some level of misunderstanding what his stated intent was in regards to self harm and suicide. This information may be useful for the crisis service to consider in light of the pending involutary admission and disposition planning. Assessment and Plan Assessment and plan (1) Major depression: Status: Chronic Assessment and plan: Consider wellbutrin XL 150 mg QAM Continue evaluation of need for involuntary psychiatric admission vs. safety planning and close follow up by mental health Review of Systems All systems reviewed & are unremarkable except as noted in HPI and below Psychiatric Psychiatric: Reports abnormal sleep pattern, Reports change in appetite, Reports depression, Reports irritability and Reports suicidal ideation [facility] All Active Problems Major depression (Chronic) Depression (Acute) sad, withdrawn, loss of interest- no improvment with counseling - meds 05/30 Weight loss (Acute) ? depression related - labs Sadness (Acute) mild depression - will work with counselor 02/26 Routine child health exam (Acute 01/15/12) Normal weight, pediatric, BMI 5th to 84th percentile for age (Acute 11/29/14) History of penicillin allergy (Acute 01/15/12) Family History Mother Healthy adult on routine physical examination Father Healthy adult on routine physical examination Grandparent Heart disease Hyperlipidemia Mental disorder Social History Smoking/Tobacco Use Status: Former Tobacco Use Smoking risk assessment performed?: Yes Alcohol Intake: never Drug use: Occasionally Substance use type: marijuana Do you feel safe at home: Yes Do you feel safe in your relationship?: Yes Exam Psych Appearance: grossly normal Speech and Movement: speech and movement normal Mood: dysthymic mood and angry Affect: dysphoric affect and irritable affect Attitude: guarded Thought Process: circumstantial Thought Content: other (Denies suicidal thoughts, plan, intent) Insight: fair Judgment: fair Results Last Vital Signs Temp 36.1 C L 08/17/21 21:00 Pulse 69 08/17/21 21:00 Resp 16 08/17/21 21:00 BP 123/74 08/17/21 21:00 Pulse Ox 96 08/17/21 21:00 Labs Result diagrams: 08/17/21 08:40 08/16/21 18:34 Consent/Time spent Consent/Time Spent The patient has consented to a virtual communication with the provider: Yes Visit performed via: Telehealth Time Spent (minutes): 90
--- NOTE | 2021-08-18 21:14 | PDOC.MHCN_ITS ---
Date of service: 08/18/21 Time of Service: 21:14 Mental Health Crisis Note Presenting Issue How did you arrive at the ED and why did you come: Pt presented to the ED on 08.16.2021 via a Mental Health warrant exicuted by JAMA Shearer after reports from the mother that he had expressed SI with plan, intent and date/time. Precipitating Factors Pt is denying SI and HI at the time of his requested assessment at around 2pm today. He is not showing signs of delusions. Disposition BEHAVIOR: Pt presented as manipulative I'm not giving anymore when I am not being heard or treated since my arrival. Pt and his mother, reported he has not received a shower and mother has asked for a copy of his warrant since 8:30am on 08.18.2021. This clinician reminded the mother, who used to worked for [facility] not that long ago, that 1. the Pt is an adult and so she would not be able to gain access to his PHI without a ADELAIDA and 2. if the Pt wanted a copy of his PHI he would need to request in writing a copy of said request, and it would go to management to decide further action. It is important to note that the mother is the one who gave information [facility] about her son's reports of suicide, intent and plan to the [facility] and that she did not want [facility] to show in person as she feared he would elope and that he would put him in imminent danger if that happened. Mother and Pt today stated that there was a misunderstanding of information shared about his SI, he has and old phone that he used to write his plans etc on. Pt reported that said threats to harm himself were from years ago and nothing was current. Pt, during today's requested assessment, made statements about elopement and he was informed that ED staff would not prevent him from doing so however, if he did, law enforcement would be notified and he would be brought back to [facility] once found. Pt reported he is not getting any treatment while at [facility]. This clinician acknowledged that [facility] is not the best placement for treatment however that is what is availble until appropriate placement is found. At the same time this clinician reminded the Pt that what was offered was medication management to which according to [facility] documentation from Dr. eWeks the Pt has declined stating I'll think about taking in a week of two after I get out of here per Dr. Weeks's note. In addition, the Pt reported to Dr. Weeks that since moving in with his mother 6 week ago he has experienced worsened depressive symptoms then with low mood, poor sleep, low energy, decreased appetite and weight loss, and feelings of guilt more prominent.?Although reported during this assessment, this had been improving prior to admission to [facility]. EYE CONTACT: Consistent and intense. MOOD: Pt presented as showing no insight or remorse for his actions and manipulative I'm not giving any more when I am not getting anything back. He presents as anxious and repetitive with trying to convince this clinician to release him to his mother on a safety plan. AFFECT: Blunted and intense. APPETITE: Pt reported he is not eating well as he is nautious and sick after eating this place is making me worse. SLEEP(trouble falling/staying asleep: Pt reported that he is not sleeping well due to the stress he is experiencing. Plan This clinician explained to the Pt that at this time, it is not this clinician's professional observation that he should be safety planned home. It is this cl inicians belief that the Pt is still meeting criteria for inpatient treatment due to the reported, per his mother's report to JAMA Shearer's, suicide letter left with specific details, intent and plan, his lack of insight, judgment, remorse and willingness to engage in treatment while in the ED waiting for placement. Pt will continue to be assessed twice daily by [facility] and placement sought by the controls engineer clinician daily. This clinician spoke to the attending and requested that he be able to shower at the ED's earliest continence. Signature Clinician's Name/Title: Leticia Holt MS, [facility] Emergency Services Clinician, [facility]
--- NOTE | 2021-08-18 23:34 | W.EDPROG ---
Date of service: 08/18/21 Time of Service: 16:00 Medical Decision Making Assumed care of patient from Es Marrufo NP. Patient remains in emergency department with family at bedside waiting for psychiatric bed availability. We did speak with patient and both father and mother. Informed them of plan of care for patient to remain in emergency department to allow for family support. Patient did state continued thoughts of self-harm along with anxiety. He stated that he has been trying to hold these thoughts and but that he does want psychiatric admission and help. Thoroughly discussed the typical admission process and due to low bed availability that this can be prolonged but that we will continue to keep him safe and monitor him until beds are available. Family is very supportive and all questions were answered. Did order patient some Atarax p.o. as needed for anxiety after discussion of risk versus benefit with both patient and parents which patient was agreeable to taking this as needed. Patient is otherwise in stable condition with no worsening and no further concerns stated. We will continue to monitor patient's condition. Misty Harris: Did not see, evaluate, or treat this patient. Exam Const General: cooperative, no acute distress and not ill appearing Orientation: alert, awake and oriented x3 Resp Effort & Inspection: normal respiratory effort, able to speak in complete sentences and no respiratory distress Neuro General: patient alert, patient awake, patient oriented x3 and moves all extremities Psych Mental Status: mental status grossly normal Speech and Movement: speech and movement normal Mood: anxious mood Affect: sad Attitude: cooperative Thought Process: normal Thought Content: no homicidality and suicidality (improving) Insight: insight good Judgment: judgment good Sign Out Sign Out Data: Sign Out Comment: EE. Depression with SI. Has been calm and cooperative. Nonspecific leukocytosis, no signs of infection, plan is to recheck CBC. Awaiting second mental health evaluation tomorrow morning Last updated by Alex Anderson PA at 08/16/21 23:09 Sign Out Comment: Patient remains on EE. Patient stable throughout the night. Pending placement. No interventions throughout the evening. Last updated by Héctor Eller DO at 08/20/21 06:25 Sign Out Comment: 2nd cert and repeat CBC pending No issues overnight Last updated by Bryan Barrientos MD at 08/17/21 06:42 Sign Out Comment: Patient anxious but otherwise cooperative today. He was offered Ativan p.o. but declined. Second certificate completed. Awaiting placement. Last updated by Quita Hamm DO at 08/17/21 15:57 Sign Out Comment: two certifications completed; patient now denying SI/HI, wants to talk to psych team to negotiate dc home; [facility] has denied inpatient admission; page has been placed to Dr. Weeks for re-evaluation. Last updated by Alan Holguin MD at 08/17/21 23:39 Sign Out Comment: No issues or complications overnight. Patient stable throughout the night and slept well. Patient would like to talk to psychiatric team to negotiate discharge home. Patient currently denying suicidal and homicidal ideations. Last updated by Héctor Eller DO at 08/18/21 08:22 Sign Out Comment: Patient is here for involuntary hold. Pending inpatient psych placement. He is requesting to have a shower. In-house in bed not available till after 7 PM. Has been evaluated by Dr. Wasserman with [facility] and has had 2 an EKG as evaluation today. They will reevaluate tomorrow. He has been unwilling with medication management. Anxious but otherwise cooperative. Last updated by Es Marrufo at 08/18/21 15:39 Sign Out Comment: Patient remains in emergency department with anxiety but family is at bedside and patient has continued to be calm and cooperative. Patient does state some continued suicidal ideations but is otherwise stable. Patient signed out to Dr. Eller pending bed availability. Last updated by Segun Ascencio NP at 08/18/21 23:38 Sign Out Comment: Patient stable throughout the night. Pending placement in mental health for evaluation. No interventions throughout the evening. Last updated by Héctor Eller DO at 08/19/21 08:19 Sign Out Comment: Remains EE, seen by HARPREET chong today. Last updated by Bryan Barrientos MD at 08/19/21 18:58 Discharge Plan Disposition Patient Disposition: HOME Condition: Improving Discharge Details Clinical Impression: Major depression, Sadness Primary Care Provider: Unknown,Unknown ED Provider: Segun Ascencio Home Meds and New Rx's Prescriptions: No Action No Known Home Meds 0RF Discharge Instructions Instructions: Depression (ED), Help Prevent Suicide (ED), Suicide Prevention (ED) Additional Instructions: Please follow the provided safety plan which includes daily check ins with [facility] services. Otherwise used discussed coping mechanisms and follow safety plan for safe living environment. If there are any further concerns with worsening symptoms, return of suicidality, or concerning behavior return immediately to the emergency department for reassessment and further reestablishment of psychiatric plan of care. It will also be important for you to follow-up with your primary care provider later this week for medical reassessment and consideration of possible prescription medications to help with your symptoms. We have faxed information to [facility] and feel free to contact their office tomorrow for arrangement of follow-up appointment. Referrals: [facility] [Provider Group] - 5 days Discharge Data Discharge Date/Time-TO BE ENTERED AT DEPARTURE: 08/20/21 11:09
--- NOTE | 2021-08-19 09:40 | PDOC.MHPN2 ---
Date of service: 08/19/21 Time of Service: 09:38 Mental Health Progress Note Progress Note Progress Note: Presenting Issue:Client is at ED on EE. Precipitating Factors Disposition * Behavior: Cooperative *Eye Contact: present *Mood: anxious and stressed *Affect: Congruent with mood *Appetite: Client report difficulty with appetite due to anxiety *Sleep(troubel falling/staying asleep): Client reports his sleep is ok with the support of his mother Plan(please elaborate and include that physician is consulted with plan and/or placement): Client is on EE and will be assessed twice daily while awaiting placement or can be safely planned back into community. Clinician's Name , Title, and Signature Zain Jackson BA Make sure that you are photocopying and submitting this to [facility] records Dept. to be scanned into chart.
[2021-08-19] MEDS: LORazepam 0.5 MG TAB PO (10:48)
[2021-08-19 13:04] VITALS: BP 128/77; PULSE 72; RESP 16; TEMP 36.7; O2SAT 98
--- NOTE | 2021-08-19 17:35 | CMSP_ITS ---
- If Service Date Differs Date of service: 08/19/21 Time of Service: 17:35 Care Management Safety Plan Status: Involuntary - Reason for Wait Reason for Wait: Inpatient Admission Ijeoma is a 20 year old male who presented to the ED via [facility] on a mental health warrant for EE. He reportedly made suicidal statements to his mother and wrote a letter stating that he wants to end it all and explaining how he would do that, specifically by hanging himself. Per his mother, he has been depressed, decreased appetite and lost 20 pound weight loss. Per report, he recently moved in with his mother after a falling out with his friend/roommate. Ijeoma had a second certification which was upheld by the Psychiatrist from [facility]. He has also been seen by Dr. Weeks, who asked for his EE status to be reconsidered. He is screened twice daily by [facility], once by a [facility]. Leticia [facility], met with him and agreed that he should remain held involuntarily. There was a huddle this afternoon with FENG Suggs; AMAURI Whitten; AMAURI Robertson Power Operator; and CARLIE Bradshaw. There was a discussion about him moving to M/S, if he remains stable. Concerns that were voiced were that he currently has his cell phone in the room, which would need to be removed PRIOR to him moving upstairs. Also, he is allowed a consistent visitor in the ED, and his mother has been with him overnight. If he moves to M/S, the visitation will be restricted to 12-6pm, and this would need to be made clear to both the patient and his mother. At this time, he will remain in the ED. Safety plan has been established to meet the needs of the patient, and consi deration of the care team, to adhere to patient goals, identify restrictions based on behavioral status, address nutrition, and determine allowed personal belongings, tools for hygiene and personal care. Determine level of activity including ambulation, level of supervision, visitors, and determine privileges based on behaviors and level of engagement by pt. SAFETY PLAN: 1. Will remain on SI/HI precautions. In Paper Clothes 2. Will remain in room under direct supervision of one-on-one staff at all times provided by [employer]; WILLIAM, ROBIN study hall supervisor. 3. May have paper cups, plates, finger foods as well as a cardboard spoon 4. Follow [facility] Management of the Admitted Behavioral Health Patient policy. 5. Comfort bath system or shower, at RN discretion. 6. Personal belongings at RN discretion. 7. Visitors: Mother, at RN discretion. 8. Activities: soft cart items, TV, other activity items at RN discretion. 9. Bathroom privileges with supervision while in ED, if on M/S, with no l imitation. 10. Phone: Ingoing/Outgoing calls at RN discretion. 11. Due to INVOLUNTARY status, patient is being held at [facility] by the Department of Mental Health ([facility]) until 2nd certification by [facility] Psychiatrist can be performed (within 24 hours). Staff will provide de-escalation support (CPI) as needed. If patient wishes to leave [facility], staff will contact [facility] Crisis Screener ([phone]) and On-Call [employer] Solutions Architect ([phone]) as soon as possible. In the event of elopement, notify [facility] Police ([phone]). Patient is currently involuntarily at [facility]. [facility] Frontline Manager Relocation will continue seeking placement. Please contact the Pull Out Operator [employer] Solutions Architect ([phone]) for any needed changes to Safety Plan. Safety plan has been provided to interdepartmental care team. Patient will be transported by deputy sheriff/investigator at time of discharge.
[2021-08-19] MEDS: LORazepam 1 MG TAB PO (21:48)
[2021-08-20] MEDS: hydrOXYzine HCL 25 MG TAB PO (07:39)
--- NOTE | 2021-08-20 09:30 | PDOC.MHPN2 ---
Date of service: 08/20/21 Time of Service: 09:30 Mental Health Progress Note Progress Note Progress Note: Presenting Issue: Client is on EE due to concerns for safety. Precipitating Factors Disposition * Behavior:Cooperative *Eye Contact:present *Mood:Normal *Affect:Normal *Appetite:Improving *Sleep(troubel falling/staying asleep):Improving Plan(please elaborate and include that physician is consulted with plan and/or placement):Client was seen by writing clinician and [facility] Leticia Holt and was walked off EE as client is no longer meeting criteria for placement. Client did opening paperwork to begin services with [facility]. Client will be doing daily check in calls with [facility]. Client is scheduling appointment with PCP. Client participated in development of Pro-[employer] Safety Plan. Clinician's Name , Title, and Signature Zain Jackson BA Make sure that you are photocopying and submitting this to [facility] records Dept. to be scanned into chart.
--- NOTE | 2021-08-20 09:31 | ED.PROG_ITS ---
Date of service: 08/20/21 Time of Service: 08:00 Exam Const General: cooperative Orientation: alert, awake and oriented x3 Limitations: mental status not altered Eyes General: appearance normal, both eyes and all related structures Resp Effort & Inspection: normal respiratory effort, able to speak in complete sentences and no respiratory distress Neuro General: patient alert, patient awake, patient oriented x3, gait normal and moves all extremities Cognition: normal cognition Speech: speech normal Psych Appearance: grossly normal Speech and Movement: speech and movement normal and speech clear Mood: congruent mood Affect: normal affect Attitude: cooperative, establishes eye contact and answers questions Thought Process: normal Thought Content: normal, no compulsions, no delusions, no homicidality and suicidality Insight: insight good Judgment: judgment good Narrative 0800- Assumed care of patient. Patient resting in room. Report was that patient had no concerning behavior last night overnight and family has continued to be extremely supportive throughout stay. We will continue to monitor and assess. 1030-mental health team reassessed patient and they are clearing patient for EE and psychiatric admission. Patient is now denying any suicidal ideations and is only currently stating situational anxiety due to being in the emergency department and not sleeping well. Thoroughly discussed patient previous statement of him wanting to say whatever he needed to to be discharged. Patient adamantly denies any self-harm at this time and appears on and forthcoming with feelings. Given both mental health feeling patient is safe along with patient now denying anything to me I do agree that patient is safe to discharge but will discuss this when father arrives. 1100-patient's father arrived and we discussed safety plan with father. Father is agreeable to safety plan and also agrees with discharge this time and feels comfortable with change in status from admission to outpatient therapy. Patient will have daily check in and needs a primary care provider established and an appointment this week for reassessment and consideration of possible medications. After discussion of diagnosis and plan of care patient and father have no further needs, questions, or concerns and states clear understanding to return to the emergency department for any worsening symptoms. Sign Out Sign Out Data: Sign Out Comment: EE. Depression with SI. Has been calm and cooperative. Nonspecific leukocytosis, no signs of infection, plan is to recheck CBC. Awaiting second mental health evaluation tomorrow morning Last updated by Alex Anderson PA at 08/16/21 23:09 Sign Out Comment: Patient remains on EE. Patient stable throughout the night. Pending placement. No interventions throughout the evening. Last updated by Héctor Eller DO at 08/20/21 06:25 Sign Out Comment: 2nd cert and repeat CBC pending No issues overnight Last updated by Bryan Barrientos MD at 08/17/21 06:42 Sign Out Comment: Patient anxious but otherwise cooperative today. He was offered Ativan p.o. but declined. Second certificate completed. Awaiting placement. Last updated by Quita Hamm DO at 08/17/21 15:57 Sign Out Comment: two certifications completed; patient now denying SI/HI, wants to talk to psych team to negotiate dc home; [facility] has denied inpatient admission; page has been placed to Dr. Weeks for re-evaluation. Last updated by Alan Holguin MD at 08/17/21 23:39 Sign Out Comment: No issues or complications overnight. Patient stable throughout the night and slept well. Patient would like to talk to psychiatric team to negotiate discharge home. Patient currently denying suicidal and homicidal ideations. Last updated by Héctor Eller DO at 08/18/21 08:22 Sign Out Comment: Patient is here for involuntary hold. Pending inpatient psych placement. He is requesting to have a shower. In-house in bed not available till after 7 PM. Has been evaluated by Dr. Wasserman with [facility] and has had 2 an EKG as evaluation today. They will reevaluate tomorrow. He has been unwilling with medication management. Anxious but otherwise cooperative. Last updated by Es Marrufo at 08/18/21 15:39 Sign Out Comment: Patient remains in emergency department with anxiety but family is at bedside and patient has continued to be calm and cooperative. Patient does state some continued suicidal ideations but is otherwise stable. Patient signed out to Dr. Eller pending bed availability. Last updated by Segun Ascencio NP at 08/18/21 23:38 Sign Out Comment: Patient stable throughout the night. Pending placement in mental health for evaluation. No interventions throughout the evening. Last updated by Héctor Eller DO at 08/19/21 08:19 Sign Out Comment: Remains EE, seen by [facility] x2 today. Last updated by Bryan Barrientos MD at 08/19/21 18:58 Discharge Plan Disposition Patient Disposition: HOME Condition: Improving Discharge Details Clinical Impression: Major depression, Sadness Primary Care Provider: Unknown,Unknown ED Provider: Segun Ascencio Home Meds and New Rx's Prescriptions: No Action No Known Home Meds 0RF Discharge Instructions Instructions: Depression (ED), Help Prevent Suicide (ED), Suicide Prevention (ED) Additional Instructions: Please follow the provided safety plan which includes daily check ins with [facility] services. Otherwise used discussed coping mechanisms and follow safety plan for safe living environment. If there are any further concerns with worsening symptoms, return of suicidality, or concerning behavior return immediately to the emergency department for reassessment and further reestablishment of psychiatric plan of care. It will also be important for you to follow-up with your primary care provider later this week for medical reassessment and consideration of possible prescription medications to help with your symptoms. We have faxed information to [facility] and feel free to contact their office tomorrow for arrangement of follow-up appointment. Referrals: [facility] [Provider Group] - 5 days
[2021-08-20 10:12] VITALS: BP 133/66; PULSE 58; TEMP 36.9; O2SAT 98
--- NOTE | 2021-08-20 10:51 | CMSP_ITS ---
- If Service Date Differs Date of service: 08/20/21 Time of Service: 10:51 Care Management Safety Plan Status: Involuntary - Reason for Wait Reason for Wait: Inpatient Admission Ijeoma is a 20 year old male who presented to the ED via [facility] on a mental health warrant for EE. He reportedly made suicidal statements to his mother and wrote a letter stating that he wants to end it all and explaining how he would do that, specifically by hanging himself. Per his mother, he has been depressed, decreased appetite and lost 20 pound weight loss. Per report, he recently moved in with his mother after a falling out with his friend/roommate. Ijeoma had a second certification which was upheld by the Psychiatrist from [facility]. He has also been seen by Dr. Weeks, who asked for his EE status to be reconsidered. He is screened twice daily by [facility], once by a [facility]. Leticia [facility], met with him and agreed that he should remain held involuntarily. Safety plan has been established to meet the needs of the patient, and consideration of the care team, to adhere to patient goals, identify restrictions based on behavioral status, address nutrition, and determine allowed personal belongings, tools for hygiene and personal care. Determine level of activity including ambulation, level of supervision, visitors, and determine privileges based on behaviors and level of engagement by pt. SAFETY PLAN: 1. Will remain on SI/HI precautions. In Paper Clothes 2. Will remain in room under direct supervision of one-on-one staff at all times provided by CPSO; WILLIAM, BOOKMOBILE CLERK medical review coordinator. 3. May have paper cups, plates, finger foods as well as a cardboard spoon 4. Follow [facility] Management of the Admitted Behavioral Health Patient policy. 5. Comfort bath system or shower, at RN discretion. 6. Personal belongings at RN discretion. 7. Visitors: Mother, at RN discretion. 8. Activities: soft cart items, TV, other activity items at RN discretion. 9. Bathroom privileges with supervision while in ED, if on M/S, with no limitation. 10. Phone: Ingoing/Outgoing calls at RN discretion. 11. Due to INVOLUNTARY status, patient is being held at [facility] by the Department of Mental Health ([facility]) until 2nd certification by [facility] Psychiatrist can be performed (within 24 hours). Staff will provide de-escalation support (CPI) as needed. If patient wishes to leave [facility], staff will contact [facility] Crisis Screener ([phone]) and On-Call X Ray Developing Machine Operator ([phone]) as soon as possible. In the event of elopement, notify [facility] Police ([phone]). Patient is currently involuntarily at [facility]. [facility] Frontline Ultrasonic Hand Solderer will continue seeking placement. Please contact the Industrial Cleaning Technician X Ray Developing Machine Operator ([phone]) for any needed changes to Safety Plan. Safety plan has been provided to interdepartmental care team. Patient will be transported by hazard waste handler at time of discharge.
--- NOTE | 2021-08-20 10:58 | NUR.NOTE ---
referral to establish care with PCP/ ED visit f/u and depression needed. within 1 week. noted and faxed.
[2021-08-20 15:04] LABS: Chlamydia Result Negative (Negative); GC Result Negative (Negative)
== END 2021-08-20 11:09 | disposition home or self-care (01) ==
PROVIDERS: Emergency Medicine; Physician Assistant; Emergency Provider Nurse Practitioner Family
DX: F32.9 Major depressive disorder, single episode, unspecified (principal); F41.9 Anxiety disorder, unspecified; R45.851 Suicidal ideations; Z20.822 Contact with and (suspected) exposure to COVID-19
CPT/HCPCS: 36415; 80053; 80307; 87491; 87591; 87635; 99285; Q3014; 80320; 80329; 81003; 81015; 84443; 85025

== ENCOUNTER 2021-08-27 10:33 | Observation (INO) | payer MEDICAID, SELFPAY ==
[2021-08-27 10:50] VITALS: BP 118/53; PULSE 95; RESP 18; TEMP 36.7; O2SAT 98
--- NOTE | 2021-08-27 11:26 | W.ED.GENAD ---
Discharge Plan Disposition Patient Disposition: [facility] INPATIENT Condition: Stable Discharge Details Chief Complaint: PsychEval Clinical Impression: Depression with suicidal ideation, Auditory hallucination, Homicidal ideation Admit Date/Time: 08/27/21 14:26 Admit Provider: Alex Aguirre Attending Provider: Alex Aguirre Primary Care Provider: Donavan Venegas ED Provider: Ramya Rivera Discharge Instructions Activity:: Activity as Tolerated Equipment/Supplies:: No Equipment Needed Diet:: As Tolerated Discharge Orders Discharge Orders: Discharge Order (Routine); Ordered 08/28/21 Ordered By: Ara Mujica Discharge Data Discharge Date/Time-TO BE ENTERED AT DEPARTURE: 08/27/21 14:50 Medical Decision Making Patient is a pleasant 20-year-old male, company by his father, with chief complaint of suicidal thoughts, auditory hallucinations. Patient was seen here recently with similar presentation. He initially presented on the of discharged home on the . Attempted since then, he has been having increasing symptoms, began having auditory hallucination as well as difficulty sleeping. His father has been watching him and believes Rd maximum clear hours last night without consecutively. Patient does not voice a plan on how to harm himself but states that his auditory hallucinations are advising that he harm himself or others. However, the patient reports I would kill myself before I hurt somebody else. Patient is very soft-spoken and has short answers. She denies voices actively speaking with him. On exam, patient appears anxious and afraid. Does not appear systemically ill. He denies any rash. No nuchal rigidity. Moving freely. Lungs are clear, normal cardiac exam. Primarily concerned that patient is a risk to self and with the recent increase in auditory hallucinations is at risk for increased impulsivity. Mental health is already involved in this patient's care and had evaluated the patient earlier today. They felt that patient would need to be admitted. Patient is father both are seeking voluntary admission. Sitter at bedside. Patient is in safety close. Father seems to be very supportive and I feel is appropriate to have at bedside as possible. Will obtain baseline screening labs, mental health is here and is working on referral to local facilities. Labs reviewed. No leukocytosis. Stable H&H. T bili is elevated at 1.6 this appears to be baseline for the patient, no other significant abnormalities on CMP. Patient was given nicotine, Ativan and food. Reports that he is feeling improved although still slightly anxious. He declines any further antibiotic. Dad is bringing him more food. Mental health advised that patient may be able to get placed today at mental health facility. Patient will not be sent to facility today, will admit here. Consulted with hospitalist who agrees to admission. Patient remains voluntary. Much more calm, easier demeanor and more forth coming after anxiolytic. HPI General Date/Time Provider Initiated Documentation: 08/27/21 10:37. Limitations to Documentation: no limitations. Information obtained by: patient, family (dad, seems to be excellent advocate for the patient), RN notes reviewed and old records reviewed. History of Present Illness 20 year old M presents to the emergency department with the chief complaint of SI/HI, auditory hallucinations, described as moderate (patient seems to be clear he wants help with SI/HI and does not ultimately want to harm anyone), Patient started experiencing this day(s) (recent hospitalization, auditory hallucinations have become more prevelant since) and it has been constant. improves with No relieving factors improve symptom(s), No exacerbating factors reported . Patient notes no other symptoms.. Patient did receive the following treatments prior to arrival, none Related Data Home Medications Medication Instructions Recorded Confirmed bupropion HCl 150 mg 24 hr tablet, 150 mg PO QAM #90 tab 08/22/21 08/27/21 extended release (Wellbutrin XL) Previous Rx's Medication Instructions Recorded bupropion HCl 150 mg 24 hr tablet, 150 mg PO QAM #90 tab 08/22/21 extended release (Wellbutrin XL) Allergies Allergy/AdvReac Type Severity Reaction Status Date / Time amoxicillin Allergy rash Verified 08/27/21 10:54 General Stated Complaint: PsychEval RIA: 2 Review of Systems Constitutional Constitutional: Reports as per HPI, Denies chills, Denies fatigue, Denies fever(s), Denies headache(s) and Denies weakness Eyes Eyes: Denies change in vision ENT Ears, Nose, Mouth, and Throat: Denies headache(s) Cardiovascular Cardiovascular: Reports as per HPI, Denies chest pain, Denies lightheadedness, Denies dyspnea and Denies dyspnea on exertion Respiratory Respiratory: Reports as per HPI, Denies cough, Denies dyspnea and Denies dyspnea on exertion Gastrointestinal Gastrointestinal: Reports as per HPI Genitourinary Genitourinary: Denies system reviewed and no additional complaints, except as documented (denies any change in urinary habits) Musculoskeletal Musculoskeletal: Denies abnormal gait Integumentary/Breasts Skin/Breast: Reports as per HPI and Denies rash Neurologic Neurologic: Denies abnormal movements, Denies abnormal gait, Denies confusion, Denies headache(s), Denies paresthesias and Denies weakness Psychiatric Psychiatric: Reports anxiety, Denies confusion, Reports depression, Reports auditory hallucinations, Reports paranoia, Denies visual hallucinations, Reports homicidal ideation and Reports suicidal ideation Endocrine Endocrine: Denies fatigue PFSH All Active Problems (Updated 08/31/21 @ 15:41 by ALANA Barragan) Auditory hallucination (Acute) Homicidal ideation (Acute) Insomnia (Acute) Depression with suicidal ideation (Acute) Weight loss (Acute) ? depression related - labs History of penicillin allergy (Acute 01/15/12) Family History Mother No problems noted. Father Depression Grandparent Heart disease Hyperlipidemia Mental disorder Sister No problems noted. Brother No problems noted. Social History Smoking/Tobacco Use Status: Current every day Tobacco Type: cigarettes, pipe, cigars, e-cigarettes and smokeless tobacco Smokeless tobacco user: chewing tobacco Quit status: considering quitting Second Hand Exposure: Yes Smoking risk assessment performed?: Yes Alcohol Intake: never Drug use: Rarely Substance use type: marijuana Caregiver/Support person: No Household members: family Housing: house Communication Needs: Corrective Lenses Do you need help understanding health information?: Never Pets and animals: Yes Pets and animals: cat(s) Sexually active: Yes Do you think of yourself as: straight/heterosexual Current gender identity: male How often do you talk on the phone with friends or family?: once per week How often do you get together with friends or relatives?: twice per week Do you belong to any clubs or organized social groups?: no Panel score (0-1 are the most socially isolated patients): 1 What type of physical activity do you participate in: walking, weight lifting and running Duration: 15-30 minutes/day Frequency: 3-4 times per week Edna/Anabaptist: Athiest Seatbelt use: always Helmet use: Yes Helmet use: always Drive intox or ride w/intox driver trainee: No Do you feel safe at home: Yes Do you feel safe in your relationship?: Yes Exam Const General: cooperative, comfortable, well developed, anxious and ill appearing acutely Nutritional Appearance: well nourished and thin Orientation: alert and awake [facility] Head: normal to inspection Eyes General: appearance normal, both eyes and all related structures Neck Neck: normal visual inspection, no lymphadenopathy and no meningeal signs Resp Effort & Inspection: normal respiratory effort, able to speak in complete sentences and no respiratory distress Auscultation: clear to auscultation bilaterally, no rales, no rhonchi and no wheezes Cardio Rate: regular rate Rhythm: regular rhythm Heart Sounds: S1 normal and S2 normal Back/Spine/Pelvis Cervical Spine: normal cervical lordosis and cervical ROM normal Skin General skin exam: no rashes or lesions noted Trauma: no lacerations or abrasions Neuro General: patient alert and patient awake Cognition: normal cognition Speech: speech normal Gait: normal gait Psych Appearance: grossly normal and disheveled Mental Status: mental status grossly normal Speech and Movement: delayed speech Mood: anxious mood Affect: sad Attitude: cooperative and guarded Thought Process: normal Thought Content: hallucinations auditory and suicidality Insight: limited Judgment: limited Course Vital Signs Vital signs: Vital Signs Temperature 36.7 C 08/27/21 10:50 Pulse 95 H 08/27/21 10:50 Respiratory Rate 18 08/27/21 10:50 Blood Pressure 118/53 L 08/27/21 10:50 Pulse Oximetry 98 08/27/21 10:50 Temperature 36.7 C 08/27/21 10:50 Temperature Source Temporal Artery Scan 08/27/21 10:50 Pulse 95 H 08/27/21 10:50 Respiratory Rate 18 08/27/21 10:50 Respiratory Effort Non-Labored 08/27/21 10:54 Blood Pressure 118/53 L 08/27/21 10:50 Blood Pressure Position Sitting 08/27/21 10:50 Pulse Oximetry 98 08/27/21 10:50 Oxygen Delivery Method Room Air 08/27/21 10:50 Oxygen Flow Rate 0 08/27/21 10:50
[2021-08-27] MEDS: LORazepam 1 MG TAB PO ×2 (11:38→21:22)
[2021-08-27] MEDS: Nicotine 21 MG/24 HR PATCH TD (11:38)
--- NOTE | 2021-08-27 11:41 | NUR.NOTE ---
Nursing Note: 1140 08/27/21 request put in to [facility]. Leelee Mensah
--- NOTE | 2021-08-27 11:43 | NUR.NOTE ---
Nursing Note: 1137 08/27/21 request put in to [facility]. Sadia Mensah
[2021-08-27 11:44] LABS: Abs Immature Grans 0.01 10^3/uL (0.0-0.06); Absolute Basophil Count 0.07 10^3/uL (0.0-0.2); Absolute Eosinophil Count 0.03 10^3/uL (0.0-0.7); Absolute Lymphocyte Count 1.54 10^3/uL (1.2-3.4); Absolute Monocyte Count 0.31 10^3/uL (0.1-0.8); Absolute Neutrophil Count 3.67 10^3/uL (1.2-6.7); Basophils % 1.2; Eosinophils % 0.5; HCT 43.2 % (40.0-50.0); HGB 13.9 g/dL (13.5-17.5); Immature Grans % 0.2; Lymphocytes % 27.4; MCHC 32.2 % (32.0-36.0); MCV 90.2 fL (80-95); MPV 10.4 fL (8.0-11.0); Monocytes % 5.5; Neutrophils % 65.2; Platelet Count 272 10^3/uL (130-400); RBC 4.79 10^6/uL (4.36-5.78); RDW 12.7 % (11.8-14.1); WBC 5.63 10^3/uL (4.4-10.8)
[2021-08-27 12:06] LABS: ALT 17 U/L (16-63); AST 16 U/L (15-37); Albumin 4.7 g/dL (3.4-5.0); Alkaline Phosphatase 61 U/L (46-116); Anion Gap 7.5 mmol/L (3-11); BUN 12 mg/dL (7-18); Bilirubin, Total 1.6 mg/dL (0.2-1.0); CO2 28.5 mmol/L (21.0-32.0); CREATININE 0.9 mg/dL (0.70-1.30); Calcium 9.2 mg/dL (8.5-10.1); Chloride 104 mmol/L (98-107); Glucose 94 mg/dL (74-106); Potassium 4.2 mmol/L (3.5-5.1); Sodium 140 mmol/L (136-145); TSH (W/Ref FT4) 0.56 uIU/mL (0.36-3.74); Total Protein 7.5 g/dL (6.4-8.2)
[2021-08-27 12:07] LABS: ETHANOL BLOOD < 3.0 mg/dL (<10)
[2021-08-27 12:12] LABS: Acetaminophen < 2 ug/mL (10-30); Salicylate < 2.8 mg/dL (<2.8)
--- NOTE | 2021-08-27 12:48 | CMSP_ITS ---
- If Service Date Differs Date of service: 08/27/21 Time of Service: 12:48 Care Management Safety Plan Status: Voluntary - Reason for Wait Reason for Wait: Inpatient Admission CHIEF COMPLAINT: India presents in the ED with his father due to suicidal ideation and command hallucinations. India was previously at [facility] on involuntary status but was walked off of the last week and subsequently discharged home. India voluntarily returns to the ED today reporting difficulty sleeping at night, nightmares, an inability to eat due to nausea, worsening depression and anxiety, and difficulty caring for himself and attending to his ADLs. India's paternal grandmother reportedly had a similar episode many years ago and she was eventually diagnosed with Bipolar Disorder. India has a trauma history but has never been psychiatrically hospitalized and is not currently enrolled in counseling. VOLUNTARY FOR INPATIENT PSYCHIATRIC STABILIZATION. Patient is appropriate in all interactions since arriving at [facility]; Pt has demonstrated appropriate coping and communication skills, has articulated his or her needs and concerns and is fully engaged during staff interactions. A huddle is held at approximately 12:15 pm with Ina, nursing finishing and shipping supervisor, JONATHAN Kelly, and CARLIE Paz, in attendance. Safety plan has been established with patient, and care team, to adhere to patient goals, identify restrictions based on behavioral status, address nutrition, and determine allowed personal belongings, tools for hygiene and personal care. Determine level of activity including ambulation, level of supervision, visitors, and determine privileges based on behaviors and level of engagement by pt. SAFETY PLAN: 1. Will remain on suicide precautions. In Paper Clothes 2. Will remain in room under direct supervision of one-on-one staff at all times provided by CPSO, WILLIAM, CHECK WRITER information assurance specialist. 3. May have paper cups, plates, finger foods as well as a cardboard spoon with which to eat meals. 4. Follow [facility] Management of the Admitted Behavioral Health Patient policy. 5. Shower permitted with escort at RN discretion. 6. No personal belongings. 7. Visitors: limited to parents, Piero Duran and Aneta Wellington. 8. Activities: soft cart items, music tablet, television, and other activities at RN discretion. 9. Bathroom privileges with escort in the ED, available in room without limitation on M/S. 10. Phone: May use [employer] phone at RN discretion. 11. Due to VOLUNTARY status, if patient wishes to leave [facility], staff will contact [facility] Crisis Screener ([phone]) and On-Call Cement Or Concrete Finishing Supervisor ([phone]) as soon as possible. In the event of elopement, notify [facility] Police ([phone]). Patient is currently voluntarily at [facility] and seeking inpatient admission when a bed becomes available. [facility] Frontline Production Support Engineer will continue seeking placement. Please contact the Process Supervisor Cement Or Concrete Finishing Supervisor ([phone]) and [facility] Production Support Engineer ([phone]) for any needed changes in the Safety Plan. Safety plan has been provided to interdepartmental care team.
--- NOTE | 2021-08-27 13:00 | NUR.NOTE ---
[phone] cell [phone] Nursing Note:
--- NOTE | 2021-08-27 13:02 | NUR.NOTE ---
Nursing Note: Patient ate 90% of the maccaroni and cheese, drank the gwyn mary and a few bites of the chocolate pudding. Sadia Mensah
[2021-08-27 13:38] LABS: Bilirubin Small (Negative); Blood Negative (Negative); Clarity Sl Cloudy (Clear); Glucose Negative (Negative); Ketones Negative (Negative); Leukocyte Esterase Negative (Negative); Nitrite Negative (Negative); Specific Gravity 1.025 (1.005-1.025)
[2021-08-27 13:41] LABS: Source Nasal/Nares
[2021-08-27 13:48] LABS: Bacteria Negative HPF (Negative); C & S Indicated? No; Casts Negative LPF (Negative); Crystals Negative HPF (Negative); Epithelial Cells Rare HPF (Negative); Mucus Trace (Negative); RBC 0-2 HPF (0-2); WBC 0-2 HPF (0-5)
[2021-08-27 14:00] LABS: *AMPHETAMINES SCREEN URINE Negative (Negative); *BARBITURATES SCREEN URINE Negative (Negative); *BENZODIAZEPINES SCREEN URINE Negative (Negative); Cannabinoids THC Positive (Negative); Cocaine Screen,Urine Negative (Negative); METHADONE URINE SCREEN Negative (Negative); OPIATES URINE SCREEN Negative (Negative)
[2021-08-27 14:01] LABS: Tricyclic Antidepressants Negative (Negative)
[2021-08-27 14:19] LABS: COVID-19 PCR Negative (Negative)
--- NOTE | 2021-08-27 14:29 | HPE_ITS ---
Date of service: 08/27/21 Time of Service: 14:29 [facility] All Active Problems (Updated 08/22/21 @ 10:54 by Donavan Venegas NP) Major depression (Chronic) Weight loss (Acute) ? depression related - labs History of penicillin allergy (Acute 01/15/12) Family History (Updated 08/22/21 @ 18:06 by Soheila Arambula) Mother No problems noted. Father Depression Grandparent Heart disease Hyperlipidemia Mental disorder Sister No problems noted. Brother No problems noted. Social History (Updated 08/25/21 @ 10:20 by Soheila Arambula) Smoking/Tobacco Use Status: Current every day Tobacco Type: cigarettes, pipe, cigars, e-cigarettes and smokeless tobacco Smokeless tobacco user: chewing tobacco Quit status: considering quitting Second Hand Exposure: Yes Smoking risk assessment performed?: Yes Alcohol Intake: never Drug use: Rarely Substance use type: marijuana Caregiver/Support person: No Household members: family Housing: house Communication Needs: Corrective Lenses Do you need help understanding health information?: Never Pets and animals: Yes Pets and animals: cat(s) Sexually active: Yes Do you think of yourself as: straight/heterosexual Current gender identity: male How often do you talk on the phone with friends or family?: once per week How often do you get together with friends or relatives?: twice per week Do you belong to any clubs or organized social groups?: no Panel score (0-1 are the most socially isolated patients): 1 What type of physical activity do you participate in: walking, weight lifting and running Duration: 15-30 minutes/day Frequency: 3-4 times per week [place]/Oriental Orthodox: Athiest Seatbelt use: always Helmet use: Yes Helmet use: always Drive intox or ride w/intox 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 Do you feel safe at home: Yes Do you feel safe in your relationship?: Yes Meds Allergies and Home Medications Allergies Allergy/AdvReac Type Severity Reaction Status Date / Time amoxicillin Allergy rash Verified 08/27/21 10:54 Home Medications Medication Instructions Recorded Confirmed Type bupropion HCl 150 mg 24 hr tablet, 150 mg PO QAM #90 tab 08/22/21 08/27/21 Rx extended release (Wellbutrin XL) Results Labs Result diagrams: 08/27/21 11:35 08/27/21 11:35 Labs: Laboratory Results - last 24 hr 08/27/21 08/27/21 08/27/21 11:35 11:35 11:35 WBC 5.63 RBC 4.79 Hgb 13.9 Hct 43.2 MCV 90.2 MCH 29.0 MCHC 32.2 RDW 12.7 Plt Count 272 MPV 10.4 Immature Gran % 0.2 Neutrophils % 65.2 Lymphocytes % 27.4 Monocytes % 5.5 Eosinophils % 0.5 Basophils % 1.2 Nucleated RBC % 0.0 Absolute Neutrophils 3.67 Absolute Lymphocytes 1.54 Absolute Monocytes 0.31 Absolute Eosinophils 0.03 Absolute Basophils 0.07 Sodium 140 Potassium 4.2 Chloride 104 Carbon Dioxide 28.5 Anion Gap 7.5 BUN 12 Creatinine 0.9 Estimated GFR/1.73 m2 >= 60.00 Glucose 94 Calcium 9.2 Total Bilirubin 1.6 H AST 16 ALT 17 Alkaline Phosphatase 61 Total Protein 7.5 Albumin 4.7 TSH 0.56 Urine Color Urine Clarity Urine pH Ur Specific [place] Urine Protein Urine Ketones Urine Blood Urine Nitrite Urine Bilirubin Urine Urobilinogen Ur Leukocyte Esterase Urine RBC Urine WBC Ur Epithelial Cells Urine Crystals Urine Bacteria Urine Casts Urine Mucus Ur Culture Indicated? Urine Glucose Salicylates < 2.8 Urine Opiates Screen Urine Methadone Screen Acetaminophen < 2 Ur Barbiturates Screen Ur Tricyclics Screen Ur Amphetamines Screen U Benzodiazepines Scrn Urine Cocaine Screen Ur THC Screen Ethyl Alcohol < 3.0 COVID-19 Source SARS-CoV-2 (PCR) 08/27/21 08/27/21 08/27/21 13:28 13:28 13:35 WBC RBC Hgb Hct MCV MCH MCHC RDW Plt Count MPV Immature Gran % Neutrophils % Lymphocytes % Monocytes % Eosinophils % Basophils % Nucleated RBC % Absolute Neutrophils Absolute Lymphocytes Absolute Monocytes Absolute Eosinophils Absolute Basophils Sodium Potassium Chloride Carbon Dioxide Anion Gap BUN Creatinine Estimated GFR/1.73 m2 Glucose Calcium Total Bilirubin AST ALT Alkaline Phosphatase Total Protein Albumin TSH Urine Color Yellow Urine Clarity Sl Cloudy Urine pH 7.0 Ur Specific [place] 1.025 Urine Protein 30 H Urine Ketones Negative Urine Blood Negative Urine Nitrite Negative Urine Bilirubin Small H Urine Urobilinogen 1.0 H Ur Leukocyte Esterase Negative Urine RBC 0-2 Urine WBC 0-2 Ur Epithelial Cells Rare Urine Crystals Negative Urine Bacteria Negative Urine Casts Negative Urine Mucus Trace Ur Culture Indicated? No Urine Glucose Negative Salicylates Urine Opiates Screen Negative Urine Methadone Screen Negative Acetaminophen Ur Barbiturates Screen Negative Ur Tricyclics Screen Negative Ur Amphetamines Screen Negative U Benzodiazepines Scrn Negative Urine Cocaine Screen Negative Ur THC Screen Positive A Ethyl Alcohol COVID-19 Source Nasal/Nares SARS-CoV-2 (PCR) Negative Last Vital Signs Temp 36.7 C 08/27/21 10:50 Pulse 95 H 08/27/21 10:50 Resp 18 08/27/21 10:50 BP 118/53 L 08/27/21 10:50 Pulse Ox 98 08/27/21 10:50
[2021-08-27 16:52] VITALS: BP 114/68; PULSE 61; RESP 12; TEMP 36.6; O2SAT 100
--- NOTE | 2021-08-27 17:00 | HPE_ITS ---
Date of service: 08/27/21 Time of Service: 17:24 Assessment and Plan Assessment and plan (1) Depression with suicidal ideation: Start date: 08/27/21 Start time: 17:33 Status: Acute Assessment and plan: Voluntary adm - medically cleared by ED for mental health evaluation - for increasing depression; suicidal ideation. Continue Wellbutrin; behavioral health consult; suicidal precautions, 1:[address] Aguirre (2) Insomnia: Status: Acute Assessment and plan: Difficulty sleeping for 3 days - trial melatonin, meditation, guided imagery History of Present Illness History of Present Illness Chief Complaint: Suicidal ideation Narrative: Patient is a 20 year-old male with chief complaint of suicidal thoughts, auditory hallucinations.? He was admitted here August 16 and d/c August 20 for a similar episode. He is currently not working, his father took his car; he is living between Mother's and Father's houses - both live in [place]. Since d/c he has been having increasing symptoms, began having auditory hallucinations and reports not sleeping for 3 days. He denies a plan to harm himself at this time. Review of Systems Narrative: All systems reviewed & are unremarkable except as noted in HPI and below PFSH All Active Problems (Updated 08/27/21 @ 18:15 by Nevaeh Pete NP) Insomnia (Acute) Depression with suicidal ideation (Acute) Weight loss (Acute) ? depression related - labs History of penicillin allergy (Acute 01/15/12) Family History Mother No problems noted. Father Depression Grandparent Heart disease Hyperlipidemia Mental disorder Sister No problems noted. Brother No problems noted. Social History Smoking/Tobacco Use Status: Current every day Tobacco Type: cigarettes, pipe, cigars, e-cigarettes and smokeless tobacco Smokeless tobacco user: chewing tobacco Quit status: considering quitting Second Hand Exposure: Yes Smoking risk assessment performed?: Yes Alcohol Intake: never Drug use: Rarely Substance use type: marijuana Caregiver/Support person: No Household members: family Housing: house Communication Needs: Corrective Lenses Do you need help understanding health information?: Never Pets and animals: Yes Pets and animals: cat(s) Sexually active: Yes Do you think of yourself as: straight/heterosexual Current gender identity: male How often do you talk on the phone with friends or family?: once per week How often do you get together with friends or relatives?: twice per week Do you belong to any clubs or organized social groups?: no Panel score (0-1 are the most socially isolated patients): 1 What type of physical activity do you participate in: walking, weight lifting and running Duration: 15-30 minutes/day Frequency: 3-4 times per week [place]/Taoism: Athiest Seatbelt use: always Helmet use: Yes Helmet use: always Drive intox or ride 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 Do you feel safe at home: Yes Do you feel safe in your relationship?: Yes Meds Allergies and Home Medications Allergies Allergy/AdvReac Type Severity Reaction Status Date / Time amoxicillin Allergy rash Verified 08/27/21 10:54 Home Medications Medication Instructions Recorded Confirmed Type bupropion HCl 150 mg 24 hr tablet, 150 mg PO QAM #90 tab 08/22/21 08/27/21 Rx extended release (Wellbutrin XL) Exam Narrative Exam Narrative: Const General:?cooperative Orientation:?alert, awake and oriented x3 Limitations:?mental status not altered Eyes General:?appearance normal, both eyes and all related structures Resp Effort & Inspection:?normal respiratory effort, able to speak in complete sentences and no respiratory distress Neuro General:?patient alert, patient awake, patient oriented x3, gait normal and moves all extremities Cognition:?normal cognition Speech:?speech normal Psych Appearance:?grossly normal Speech and Movement:?speech and movement normal and speech clear Mood:?congruent mood Affect:?normal affect Attitude:?cooperative, establishes eye contact, stares and pauses prior to answering questions Thought Process:?normal Thought Content:?paranoid, no compulsions, no delusions, denies plan for suicidal - does have ideation Judgment:?impaired Results Labs Result diagrams: 08/27/21 11:35 08/27/21 11:35 Labs: Laboratory Results - last 24 hr 08/27/21 08/27/21 08/27/21 11:35 11:35 11:35 WBC 5.63 RBC 4.79 Hgb 13.9 Hct 43.2 MCV 90.2 MCH 29.0 MCHC 32.2 RDW 12.7 Plt Count 272 MPV 10.4 Immature Gran % 0.2 Neutrophils % 65.2 Lymphocytes % 27.4 Monocytes % 5.5 Eosinophils % 0.5 Basophils % 1.2 Nucleated RBC % 0.0 Absolute Neutrophils 3.67 Absolute Lymphocytes 1.54 Absolute Monocytes 0.31 Absolute Eosinophils 0.03 Absolute Basophils 0.07 Sodium 140 Potassium 4.2 Chloride 104 Carbon Dioxide 28.5 Anion Gap 7.5 BUN 12 Creatinine 0.9 Estimated GFR/1.73 m2 >= 60.00 Glucose 94 Calcium 9.2 Total Bilirubin 1.6 H AST 16 ALT 17 Alkaline Phosphatase 61 Total Protein 7.5 Albumin 4.7 TSH 0.56 Urine Color Urine Clarity Urine pH Ur Specific [place] Urine Protein Urine Ketones Urine Blood Urine Nitrite Urine Bilirubin Urine Urobilinogen Ur Leukocyte Esterase Urine RBC Urine WBC Ur Epithelial Cells Urine Crystals Urine Bacteria Urine Casts Urine Mucus Ur Culture Indicated? Urine Glucose Salicylates < 2.8 Urine Opiates Screen Urine Methadone Screen Acetaminophen < 2 Ur Barbiturates Screen Ur Tricyclics Screen Ur Amphetamines Screen U Benzodiazepines Scrn Urine Cocaine Screen Ur THC Screen Ethyl Alcohol < 3.0 COVID-19 Source SARS-CoV-2 (PCR) 08/27/21 08/27/21 08/27/21 13:28 13:28 13:35 WBC RBC Hgb Hct MCV MCH MCHC RDW Plt Count MPV Immature Gran % Neutrophils % Lymphocytes % Monocytes % Eosinophils % Basophils % Nucleated RBC % Absolute Neutrophils Absolute Lymphocytes Absolute Monocytes Absolute Eosinophils Absolute Basophils Sodium Potassium Chloride Carbon Dioxide Anion Gap BUN Creatinine Estimated GFR/1.73 m2 Glucose Calcium Total Bilirubin AST ALT Alkaline Phosphatase Total Protein Albumin TSH Urine Color Yellow Urine Clarity Sl Cloudy Urine pH 7.0 Ur Specific [place] 1.025 Urine Protein 30 H Urine Ketones Negative Urine Blood Negative Urine Nitrite Negative Urine Bilirubin Small H Urine Urobilinogen 1.0 H Ur Leukocyte Esterase Negative Urine RBC 0-2 Urine WBC 0-2 Ur Epithelial Cells Rare Urine Crystals Negative Urine Bacteria Negative Urine Casts Negative Urine Mucus Trace Ur Culture Indicated? No Urine Glucose Negative Salicylates Urine Opiates Screen Negative Urine Methadone Screen Negative Acetaminophen Ur Barbiturates Screen Negative Ur Tricyclics Screen Negative Ur Amphetamines Screen Negative U Benzodiazepines Scrn Negative Urine Cocaine Screen Negative Ur THC Screen Positive A Ethyl Alcohol COVID-19 Source Nasal/Nares SARS-CoV-2 (PCR) Negative Last Vital Signs Temp 36.6 C 04/18/22 16:52 Pulse 61 08/27/21 16:52 Resp 12 08/27/21 16:52 BP 114/68 08/27/21 16:52 Pulse Ox 100 08/27/21 16:52
[2021-08-27 17:23] VITALS: BP 114/68; PULSE 61; RESP 12; TEMP 36.6; O2SAT 100
--- NOTE | 2021-08-27 18:22 | NUR.NOTE ---
Pt agrees to give all his personal belongings to his father including his cellphone and wallet. AMAURI Zhu, witnessed.
[2021-08-27] MEDS: Melatonin 3 MG TAB PO (21:22)
--- NOTE | 2021-08-27 22:20 | PDOC.MHCN ---
Date of service: 08/27/21 Time of Service: 22:20 Mental Health Crisis Note Presenting Issue How did you arrive at the ED and why did you come: Pt arrived at the request of [facility] after an assessment and determination of need for hospitalization. Precipitating Factors Pt endorsed SI and HI as a result of command hallucinations. Disposition BEHAVIOR: Cooperative however, distant and anxious about his new experience with such. EYE CONTACT: flat and worried MOOD: anxious AFFECT: flat and blunted. APPETITE: poor SLEEP(trouble falling/staying asleep: Poor due to nightmares and worry to go to sleep due to nightmares. Plan Pt is willing to stay voluntarily for placement. Daily assessments will be done and if Pt should decide to leave AMA an EE should be done due to risk levels. Signature Clinician's Name/Title: Leticia Holt MS, [facility] Emergency Services Clinician, [facility]
--- NOTE | 2021-08-27 22:57 | NUR.NOTE ---
Nursing Note: Pt requested to take of nicotine patch removed
--- NOTE | 2021-08-28 09:05 | NUR.NOTE ---
Patient came up to door and asked if there was somebody that he could speak to about being discharged. RNs notified outside of transition unit via head set. Was informed that everyone is currently in morning meeting and that someone will be down to speak with the patient after. I let the patient know and he said, Okay , thank you. and continued to sit in his bed. Nursing Note:
[2021-08-28] MEDS: Nicotine 21 MG/24 HR PATCH TD (09:15)
[2021-08-28] MEDS: buPROPion-XL 150 MG TABCR PO (09:16)
--- NOTE | 2021-08-28 09:47 | NUR.NOTE ---
RN accidentally documented Behavioral Health Care Plan assessment under my name. RN will go in and document under her name. Nursing Note:
[2021-08-28] MEDS: LORazepam 1 MG TAB PO (09:48)
--- NOTE | 2021-08-28 10:24 | PGE_ITS ---
Date of Service Date of service: 08/28/21 Time of Service: 10:10 Assessment and Plan Assessment and plan (1) Depression with suicidal ideation: Status: Acute Assessment and plan: Voluntary adm - medically cleared by ED for mental health evaluation - for increasing depression; suicidal ideation. Continue Wellbutrin; behavioral health consult; suicidal precautions, 1:[address] Scott (2) Insomnia: Status: Acute Assessment and plan: Difficulty sleeping for 3 days - trial melatonin, meditation, guided imagery I have independently evaluated the patient and reviewed the documentation, assessment and plan and am in agreement. discussed with Dr Scott Exam Narrative Exam Narrative: Const General:?cooperative Orientation:?alert, awake and oriented x3 Limitations:?mental status not altered Eyes General:?appearance normal, both eyes and all related structures Resp Effort & Inspection:?normal respiratory effort, able to speak in complete sentences and no respiratory distress Neuro General:?patient alert, patient awake, patient oriented x3, gait normal and moves all extremities Cognition:?normal cognition Speech:?speech normal Psych Appearance:?grossly normal Speech and Movement:?speech and movement normal and speech clear Mood:?congruent mood Affect:?normal affect Attitude:?cooperative, establishes eye contact, stares and pauses prior to answering questions Thought Process:?normal Thought Content:?paranoid, no compulsions, no delusions, denies plan for suicidal - does have ideation Judgment:?impaired Objective Last Vital Signs Temp 97.9 F 08/27/21 17:23 Pulse 61 08/27/21 17:23 Resp 12 08/27/21 17:23 BP 114/68 08/27/21 17:23 Pulse Ox 100 08/27/21 17:23 Laboratory Results - last 24 hr 08/27/21 08/27/21 08/27/21 11:35 11:35 11:35 WBC 5.63 RBC 4.79 Hgb 13.9 Hct 43.2 MCV 90.2 MCH 29.0 MCHC 32.2 RDW 12.7 Plt Count 272 MPV 10.4 Immature Gran % 0.2 Neutrophils % 65.2 Lymphocytes % 27.4 Monocytes % 5.5 Eosinophils % 0.5 Basophils % 1.2 Nucleated RBC % 0.0 Absolute Neutrophils 3.67 Absolute Lymphocytes 1.54 Absolute Monocytes 0.31 Absolute Eosinophils 0.03 Absolute Basophils 0.07 Sodium 140 Potassium 4.2 Chloride 104 Carbon Dioxide 28.5 Anion Gap 7.5 BUN 12 Creatinine 0.9 Estimated GFR/1.73 m2 >= 60.00 Glucose 94 Calcium 9.2 Total Bilirubin 1.6 H AST 16 ALT 17 Alkaline Phosphatase 61 Total Protein 7.5 Albumin 4.7 TSH 0.56 Urine Color Urine Clarity Urine pH Ur Specific [place] Urine Protein Urine Ketones Urine Blood Urine Nitrite Urine Bilirubin Urine Urobilinogen Ur Leukocyte Esterase Urine RBC Urine WBC Ur Epithelial Cells Urine Crystals Urine Bacteria Urine Casts Urine Mucus Ur Culture Indicated? Urine Glucose Salicylates < 2.8 Urine Opiates Screen Urine Methadone Screen Acetaminophen < 2 Ur Barbiturates Screen Ur Tricyclics Screen Ur Amphetamines Screen U Benzodiazepines Scrn Urine Cocaine Screen Ur THC Screen Ethyl Alcohol < 3.0 COVID-19 Source SARS-CoV-2 (PCR) 08/27/21 08/27/21 08/27/21 13:28 13:28 13:35 WBC RBC Hgb Hct MCV MCH MCHC RDW Plt Count MPV Immature Gran % Neutrophils % Lymphocytes % Monocytes % Eosinophils % Basophils % Nucleated RBC % Absolute Neutrophils Absolute Lymphocytes Absolute Monocytes Absolute Eosinophils Absolute Basophils Sodium Potassium Chloride Carbon Dioxide Anion Gap BUN Creatinine Estimated GFR/1.73 m2 Glucose Calcium Total Bilirubin AST ALT Alkaline Phosphatase Total Protein Albumin TSH Urine Color Yellow Urine Clarity Sl Cloudy Urine pH 7.0 Ur Specific [place] 1.025 Urine Protein 30 H Urine Ketones Negative Urine Blood Negative Urine Nitrite Negative Urine Bilirubin Small H Urine Urobilinogen 1.0 H Ur Leukocyte Esterase Negative Urine RBC 0-2 Urine WBC 0-2 Ur Epithelial Cells Rare Urine Crystals Negative Urine Bacteria Negative Urine Casts Negative Urine Mucus Trace Ur Culture Indicated? No Urine Glucose Negative Salicylates Urine Opiates Screen Negative Urine Methadone Screen Negative Acetaminophen Ur Barbiturates Screen Negative Ur Tricyclics Screen Negative Ur Amphetamines Screen Negative U Benzodiazepines Scrn Negative Urine Cocaine Screen Negative Ur THC Screen Positive A Ethyl Alcohol COVID-19 Source Nasal/Nares SARS-CoV-2 (PCR) Negative
--- NOTE | 2021-08-28 10:28 | NUR.NOTE ---
Patient stated that he wants to speak to mental health soon and that if they don't come talk to him soon that he is going to walk out and discharge himself. RN notified. Nursing Note:
--- NOTE | 2021-08-28 10:33 | NUR.NOTE ---
Mental health in room. Nursing Note:
[2021-08-28 11:16] VITALS: BP 112/74; PULSE 65; RESP 18; TEMP 36.3; O2SAT 98
--- NOTE | 2021-08-28 11:18 | NUR.NOTE ---
Nursing Note: Report was given to Callie at [facility].
--- NOTE | 2021-08-28 11:25 | DSE_ITS ---
Date of service: 08/28/21 Time of Service: 11:26 DS: Diagnosis Discharge Diagnosis (1) Depression with suicidal ideation: Status: Acute (2) Insomnia: Status: Acute Discharge Plan Disposition Patient Disposition: [facility] Condition: Stable Discharge Details Reason For Visit: SUICIDAL IDEATION Admit Date/Time: 08/27/21 14:26 Admit Provider: Alex Aguirre Attending Provider: Alex Aguirre Primary Care Provider: Donavan Venegas Hospital Course Hospital Course: This is a 20 year-old male who presented to the ED with a chief complaint of suicidal thoughts and auditory hallucinations.? He was admitted here August 16 and d/c August 20 for a similar episode. He is currently not working, his father took his car; he is living between Mother's and Father's houses - both live in [place]. Since d/c he has been having increasing symptoms, began having auditory hallucinations and reports not sleeping for 3 days. He denies a plan to harm himself at this time. He was medically screened in the ED and cleared for psychiatric evaluation. He was agreeable to voluntary inpatient placement for further management. He has stayed overnight on med/surg in our transition area and had no behavioral issues. He remained medically stable. A bed has been secured at [facility] and report has been given to Dr Mayorga who accepts patient in transfer. He is being transported by [facility]. discussed with Dr Aguirre Home Meds and New Rx's Prescriptions: Continued bupropion HCl [Wellbutrin XL] 150 mg tablet extended release 24 hr 150 mg PO QAM Qty: 90 3RF Discharge Instructions Instructions: Suicide Prevention (DC) Stand Alone Forms: Nursing Discharge Form Referrals: Donavan Venegas, [facility] [Primary Care Provider] - (on discharge from rehab) Activity:: Activity as Tolerated Equipment/Supplies:: No Equipment Needed Diet:: As Tolerated Discharge Orders Discharge Orders: Discharge Order (Routine); Ordered 08/28/21 Ordered By: Ara Mujica Discharge Data Discharge Date/Time-TO BE ENTERED AT DEPARTURE: 08/28/21 14:52 DS: Summary Time Spent with Patient providing and/or coordinating discharge services: Greater than 30 minutes Status at Discharge Functional status at discharge: independent ambulation Overall status at discharge: patient is not back to baseline Mental Status: mental status grossly normal Speech and Movement: speech and movement normal Mood: labile mood Affect: blunted Exam Const General: cooperative, healthy appearing, comfortable and no acute distress Nutritional Appearance: average body habitus Orientation: alert, awake and oriented x3 HENMT Head: normal to inspection, normocephalic and atraumatic Mouth: oral mucosae normal Resp Effort & Inspection: normal respiratory effort Auscultation: clear to auscultation bilaterally Cardio Rate: regular rate Rhythm: regular rhythm GI Inspection: normal to inspection Palpation: soft Auscultation: normal bowel sounds Skin General skin exam: no rashes or lesions noted Neuro General: patient alert, patient awake and patient oriented x3 Extrem General: normal to inspection and no pedal edema Psych Appearance: grossly normal Mental Status: mental status grossly normal Speech and Movement: speech and movement normal Mood: labile mood Affect: blunted Attitude: cooperative Thought Content: hallucinations and suicidality Insight: poor Judgment: poor DS: Data Vitals/I&O Vitals and I&O: Vital Signs Temperature 36.3 C L 08/28/21 11:16 Temperature Source Tympanic 08/28/21 11:16 Pulse 65 08/28/21 11:16 Pulse Rhythm Regular 08/28/21 09:00 Respiratory Rate 18 08/28/21 11:16 Respiratory Effort 08/28/21 09:00 Respiratory Depth Normal 08/28/21 09:00 Respiratory Pattern Normal 08/28/21 09:00 Blood Pressure 112/74 08/28/21 11:16 Blood Pressure Position Sitting 08/27/21 10:50 Pulse Oximetry 98 08/28/21 11:16 Oxygen Delivery Method Room Air 08/28/21 11:16 Oxygen Flow Rate 0 08/28/21 11:16 Intake & Output 08/27/21 08/27/21 08/28/21 11:59 23:59 11:59 Intake Total 360 / 360 Balance 360 / 360 Weight 61.235 kg 56.699 kg Intake: Oral 360 / 360 Other: Urine Odor None Voiding Methods Toilet Toilet Data Completed and Pending Labs on day of discharge: Labs from last 24 hours 08/27/21 08/27/21 08/27/21 13:35 13:28 13:28 WBC RBC Hgb Hct MCV MCH MCHC RDW Plt Count MPV Immature Gran % Neutrophils % Lymphocytes % Monocytes % Eosinophils % Basophils % Nucleated RBC % Absolute Neutrophils Absolute Lymphocytes Absolute Monocytes Absolute Eosinophils Absolute Basophils Sodium Potassium Chloride Carbon Dioxide Anion Gap BUN Creatinine Estimated GFR/1.73 m2 Glucose Calcium Total Bilirubin AST ALT Alkaline Phosphatase Total Protein Albumin TSH Urine Color Yellow Urine Clarity Sl Cloudy Urine pH 7.0 Ur Specific [place] 1.025 Urine Protein 30 H Urine Ketones Negative Urine Blood Negative Urine Nitrite Negative Urine Bilirubin Small H Urine Urobilinogen 1.0 H Ur Leukocyte Esterase Negative Urine RBC 0-2 Urine WBC 0-2 Ur Epithelial Cells Rare Urine Crystals Negative Urine Bacteria Negative Urine Casts Negative Urine Mucus Trace Ur Culture Indicated? No Urine Glucose Negative Salicylates Urine Opiates Screen Negative Urine Methadone Screen Negative Acetaminophen Ur Barbiturates Screen Negative Ur Tricyclics Screen Negative Ur Amphetamines Screen Negative U Benzodiazepines Scrn Negative Urine Cocaine Screen Negative Ur THC Screen Positive A Ethyl Alcohol COVID-19 Source Nasal/Nares SARS-CoV-2 (PCR) Negative 08/27/21 08/27/21 08/27/21 11:35 11:35 11:35 WBC 5.63 RBC 4.79 Hgb 13.9 Hct 43.2 MCV 90.2 MCH 29.0 MCHC 32.2 RDW 12.7 Plt Count 272 MPV 10.4 Immature Gran % 0.2 Neutrophils % 65.2 Lymphocytes % 27.4 Monocytes % 5.5 Eosinophils % 0.5 Basophils % 1.2 Nucleated RBC % 0.0 Absolute Neutrophils 3.67 Absolute Lymphocytes 1.54 Absolute Monocytes 0.31 Absolute Eosinophils 0.03 Absolute Basophils 0.07 Sodium 140 Potassium 4.2 Chloride 104 Carbon Dioxide 28.5 Anion Gap 7.5 BUN 12 Creatinine 0.9 Estimated GFR/1.73 m2 >= 60.00 Glucose 94 Calcium 9.2 Total Bilirubin 1.6 H AST 16 ALT 17 Alkaline Phosphatase 61 Total Protein 7.5 Albumin 4.7 TSH 0.56 Urine Color Urine Clarity Urine pH Ur Specific [place] Urine Protein Urine Ketones Urine Blood Urine Nitrite Urine Bilirubin Urine Urobilinogen Ur Leukocyte Esterase Urine RBC Urine WBC Ur Epithelial Cells Urine Crystals Urine Bacteria Urine Casts Urine Mucus Ur Culture Indicated? Urine Glucose Salicylates < 2.8 Urine Opiates Screen Urine Methadone Screen Acetaminophen < 2 Ur Barbiturates Screen Ur Tricyclics Screen Ur Amphetamines Screen U Benzodiazepines Scrn Urine Cocaine Screen Ur THC Screen Ethyl Alcohol < 3.0 COVID-19 Source SARS-CoV-2 (PCR) PFSH All Active Problems (Updated 08/27/21 @ 18:15 by Nevaeh Pete NP) Insomnia (Acute) Depression with suicidal ideation (Acute) Weight loss (Acute) ? depression related - labs History of penicillin allergy (Acute 01/15/12) Family History Mother No problems noted. Father Depression Grandparent Heart disease Hyperlipidemia Mental disorder Sister No problems noted. Brother No problems noted. Social History Smoking/Tobacco Use Status: Current every day Tobacco Type: cigarettes, pipe, cigars, e-cigarettes and smokeless tobacco Smokeless tobacco user: chewing tobacco Quit status: considering quitting Second Hand Exposure: Yes Smoking risk assessment performed?: Yes Alcohol Intake: never Drug use: Rarely Substance use type: marijuana Caregiver/Support person: No Household members: family Housing: house Communication Needs: Corrective Lenses Do you need help understanding health information?: Never Pets and animals: Yes Pets and animals: cat(s) Sexually active: Yes Do you think of yourself as: straight/heterosexual Current gender identity: male How often do you talk on the phone with friends or family?: once per week How often do you get together with friends or relatives?: twice per week Do you belong to any clubs or organized social groups?: no Panel score (0-1 are the most socially isolated patients): 1 What type of physical activity do you participate in: walking, weight lifting and running Duration: 15-30 minutes/day Frequency: 3-4 times per week [place]: Athiest Seatbelt use: always Helmet use: Yes Helmet use: always Drive intox or ride w/intox livery car driver: No Do you feel safe at home: Yes Do you feel safe in your relationship?: Yes
--- NOTE | 2021-08-28 13:26 | NUR.NOTE ---
[phone] Luann Harry. Nursing Note:
--- NOTE | 2021-08-28 14:06 | PDOC.MHCN_ITS ---
Date of service: 08/28/21 Time of Service: 14:06 Mental Health Crisis Note Presenting Issue How did you arrive at the ED and why did you come: Pt arrived on 08.27.2021 after being assessed by [facility] and he was seeking voluntary placement. Precipitating Factors Pt denied SI and HI today. He denied auditory hallucinations at the time of the assessment. Disposition BEHAVIOR: Pt is anxious and wanting to leave. He is beginning to say what he thinks we need to hear to safety plan him back home however, it is clear that he is still very much so struggling and significantly depressed, hopeless and anxious that this will not work. He reported he has accepted that he will never be better, will sleep his life away and is not confident that this placement will help. We had a discussion around the options [facility] would give him at this time regarding placement due to the extreme concerns had by both family, [facility] and staff. Pt agreed to stay voluntary. EYE CONTACT: Fair often looking down when he is sad. MOOD: Depressed, hopeless, helpless and anxious. AFFECT: Congruent with mood. APPETITE: Pt reported that he ate breakfast this am. SLEEP(trouble falling/staying asleep: Pt reported that he slept fine last night. Plan Pt was accepted to [facility] today and will leave at 2:15pm via director power transport voluntarily. Signature Clinician's Name/Title: Leticia Holt MS, [facility] Emergency Services Clinician, [facility]
--- NOTE | 2021-08-28 16:59 | PDOC.CMDIS ---
- If Service Date Differs Date of service: 08/28/21 Time of Service: 16:59 LACE Index Scoring Tool - Questions: Length of Stay (in days): 1 Acuity (Admit via E.D.?): Yes E.D. Visits: 2 - Answers: Total Score: 6 Risk of Readmission: Low Risk Care Management Discharge Reason for Hospitalization: Suicidal ideation. Discharge Plan: [facility] accepts [place] for a voluntary admission. He will follow up with [facility] and his plan of care upon discharge from [place]. [facility] Dept provide transportation to the inpatient psych facility. Patient/Family Education Needs: Discuss expectations and mode of transportation. - Disposition Disposition: [place]
== END 2021-08-28 14:52 | disposition short-term general hospital (02) ==
LOC: ER 14:35 → MS 14:53
PROVIDERS: Admitting Provider Internal Medicine; Emergency Provider Physician Assistant; PCP Nurse Practitioner Family; Visit Provider Internal Medicine
DX: F32.9 Major depressive disorder, single episode, unspecified (principal); R45.851 Suicidal ideations; G47.00 Insomnia, unspecified; R44.0 Auditory hallucinations; Z20.822 Contact with and (suspected) exposure to COVID-19; R63.4 Abnormal weight loss; Z68.1 Body mass index [BMI] 19.9 or less, adult; F17.220 Nicotine dependence, chewing tobacco, uncomplicated; F17.210 Nicotine dependence, cigarettes, uncomplicated; F17.290 Nicotine dependence, other tobacco product, uncomplicated; F41.9 Anxiety disorder, unspecified
CPT/HCPCS: 36415; 80053; 80307; 87635; 99285; 80320; 80329; 81003; 81015; 84443; 85025; 99217; 99219; G0378

== ENCOUNTER 2022-06-02 20:04 | Inpatient (IN) | payer MEDICAID, SELFPAY ==
[2022-06-02 20:13] VITALS: BP 116/77; PULSE 100; RESP 16; TEMP 36.8; O2SAT 100
--- NOTE | 2022-06-02 20:54 | NUR.NOTE ---
@2019. Pt placed on 1:1 watch while waiting in triage with ALDAIR Romano per SI protocol.
--- NOTE | 2022-06-02 21:58 | ED.GENADUL_ITS ---
Discharge Plan Discharge Details Chief Complaint: PsychEval Clinical Impression: Depression with suicidal ideation Primary Care Provider: Donavan Venegas ED Provider: Alex Anderson Home Meds and New Rx's Prescriptions: No Action No Known Home Meds Medical Decision Making 21-year-old male presents for ongoing and worsening depression with thoughts of SI, shooting himself. He also has left forearm self-inflicted wounds, self cutting and burning, no signs of secondary infection. He currently has no acute medical concerns or complaints. I will obtain a tox screen as well as a COVID swab for potential admission. Per the [facility] medical clearance form, he is medically cleared. We will initiate a interim care plan, CPSO, and request a mental health evaluation. Urine tox screen positive for THC. COVID still pending. Mental health evaluation completed, he would be a voluntary psychiatric placement. They will reevaluate him tomorrow. If he was to attempt to leave the ER, mental health would like to be notified so they can screen him once again as he did report SI with a plan. This documentation was generated using [employer] dictation system, please disregard any oddities of phrase or misspellings. Medical Records Medical records reviewed: Yes I reviewed the patient's medical records. Lab Data Lab results reviewed: Yes I reviewed the patient's lab results. Labs: Laboratory Tests Range/Units 06/02/22 22:00 Urine Opiates Screen (Negative) Negative Urine Methadone Screen (Negative) Negative Ur Barbiturates Screen (Negative) Negative Ur Tricyclics Screen (Negative) Negative Ur Amphetamines Screen (Negative) Negative U Benzodiazepines Scrn (Negative) Negative Urine Cocaine Screen (Negative) Negative Ur THC Screen (Negative) Positive A HPI General Mode of arrival: ambulatory . Date/Time Provider Initiated Documentation: 06/02/22 20:19 . Limitations to Documentation: no limitations . Information obtained by: patient . HPI Narrative: This is a 21-year-old male, past medical history that includes major depression, ADHD, insomnia, presenting to the ER this evening reporting worsening depression, SI, states he could shoot himself with a gun, going on for some time, nothing recently had been to make it worse. He denies recent illness or trauma. He admits to smoking cigarettes and occasional alcohol use as well as marijuana use but denies any other drug use. Patient states that he lives at home with his parents who are good resources. He denies outpatient therapy or currently engaged in treatment. Related Data Home Medications Medication Instructions Recorded Confirmed Unknown [No Known Home Meds] 01/04/22 02/28/22 Allergies Allergy/AdvReac Type Severity Reaction Status Date / Time amoxicillin Allergy rash Verified 02/28/22 11:01 General Stated Complaint: PsychEval RIA: 2 Review of Systems Constitutional Constitutional: Denies fever(s) and Denies weakness ENT Ears, Nose, Mouth, and Throat: Denies neck pain Cardiovascular Cardiovascular: Denies chest pain and Denies dyspnea Respiratory Respiratory: Denies cough and Denies dyspnea Gastrointestinal Gastrointestinal: Denies abdominal pain, Denies nausea and Denies vomiting Musculoskeletal Musculoskeletal: Denies neck pain, Denies numbness and Denies tingling Integumentary/Breasts Skin/Breast: Denies rash Neurologic Neurologic: Denies numbness, Denies tingling and Denies weakness Psychiatric Psychiatric: Reports anxiety, Reports depression, Denies homicidal ideation and Reports suicidal ideation [facility] All Active Problems (Updated 06/02/22 @ 22:49 by ALANA Tejada) Major depression (Chronic) ADHD (attention deficit hyperactivity disorder) (Acute) Auditory hallucination (Acute) Homicidal ideation (Acute) Insomnia (Acute) Depression with suicidal ideation (Acute) Weight loss (Acute) ? depression related - labs History of penicillin allergy (Acute 01/15/12) Family History Mother No problems noted. Father Depression Grandparent Heart disease Hyperlipidemia Mental disorder Sister No problems noted. Brother No problems noted. Social History Smoking/Tobacco Use Status: Current every day Tobacco Type: cigarettes, pipe, cigars, e-cigarettes and smokeless tobacco Smokeless tobacco user: chewing tobacco Quit status: considering quitting Second Hand Exposure: Yes Smoking risk assessment performed?: Yes Alcohol Intake: current Alcohol Intake frequency: a few times a week Drug use: Rarely Substance use type: marijuana Caregiver/Support person: No Household members: family Housing: house Communication Needs: Corrective Lenses Do you need help understanding health information?: Never Pets and animals: Yes Pets and animals: cat(s) Sexually active: Yes Do you think of yourself as: straight/heterosexual Current gender identity: male How often do you talk on the phone with friends or family?: once per week How often do you get together with friends or relatives?: twice per week Do you belong to any clubs or organized social groups?: no Panel score (0-1 are the most socially isolated patients): 1 What type of physical activity do you participate in: walking, weight lifting and running Duration: 15-30 minutes/day Frequency: 3-4 times per week [place]/Zoroastrianism: Athiest Seatbelt use: always Helmet use: Yes Helmet use: always Drive intox or ride w/intox rear load truck driver: No Do you feel safe at home: Yes Do you feel safe in your relationship?: Yes Exam Const General: cooperative, healthy appearing, comfortable and no acute distress Orientation: alert, awake and oriented x3 HENMT Head: normal to inspection, normocephalic and atraumatic Face and sinus: normal facial exam Mouth: moist mucous membranes Eyes General: appearance normal, both eyes and all related structures Conjunctivae: conjunctivae normal Neck Neck: normal visual inspection, full ROM, no meningeal signs, trachea midline and supple Resp Effort & Inspection: normal respiratory effort and able to speak in complete sentences Auscultation: clear to auscultation bilaterally Cardio Rate: regular rate Rhythm: regular rhythm GI Palpation: soft and nontender Back/Spine/Pelvis Back: No back tenderness Skin Rashes: no rashes Neuro General: patient alert, patient awake, patient oriented x3, moves all extremities and no focal motor deficits Cognition: normal cognition Speech: speech normal Gait: normal gait Motor: muscle tone normal throughout Sensory Exam: no sensory deficits noted Extrem General: full ROM and capillary refill normal Other: Left forearm with horizontal abrasions consistent with self cutting as well as round first-degree dennis. No signs of secondary infection Psych Appearance: grossly normal Mental Status: mental status grossly normal Speech and Movement: speech and movement normal Mood: dysthymic mood Affect: sad Attitude: guarded and avoids eye contact Thought Process: normal Thought Content: suicidality Insight: limited Judgment: limited Course Vital Signs Vital signs: Vital Signs Temperature 36.8 C 06/02/22 20:13 Pulse 100 H 06/02/22 20:13 Respiratory Rate 16 06/02/22 20:13 Blood Pressure 116/77 06/02/22 20:13 Pulse Oximetry 100 06/02/22 20:13 Temperature 36.8 C 06/02/22 20:13 Temperature Source Tympanic 06/02/22 20:13 Pulse 100 H 06/02/22 20:13 Respiratory Rate 16 06/02/22 20:13 Blood Pressure 116/77 06/02/22 20:13 Blood Pressure Position Sitting 06/02/22 20:13 Pulse Oximetry 100 06/02/22 20:13 Oxygen Delivery Method Room Air 06/02/22 20:13 Oxygen Flow Rate 0 06/02/22 20:13 Pain Level 0 06/02/22 20:13
[2022-06-02 22:35] LABS: *AMPHETAMINES SCREEN URINE Negative (Negative); *BARBITURATES SCREEN URINE Negative (Negative); *BENZODIAZEPINES SCREEN URINE Negative (Negative); Cannabinoids THC Positive (Negative); Cocaine Screen,Urine Negative (Negative); METHADONE URINE SCREEN Negative (Negative); OPIATES URINE SCREEN Negative (Negative)
[2022-06-02 22:38] LABS: Tricyclic Antidepressants Negative (Negative)
--- NOTE | 2022-06-02 22:47 | PDOC.MHCN ---
Date of service: 06/02/22 Time of Service: 22:30 PHQ-9 Over the last 2 weeks, how often have you been bothered by any of the following problems? 1. Little interest or pleasure in doing things: nearly every day 2. Feeling down, depressed, or hopeless: nearly every day 3. Trouble falling or staying asleep, or sleeping too much: nearly every day 4. Feeling tired or having little energy: nearly every day 5. Poor appetite or overeating: nearly every day 6. Feeling bad about yourself - or that you are a failure or have let yourself and your family down: nearly every day 7. Trouble concentrating on things, such as reading the newspaper or watching television: not at all 8. Moving or speaking so slowly that other people could have noticed? - Or the opposite - being so fidgety or restless that you have been moving around a lot more than usual: nearly every day 9. Thoughts that you would be better off or of hurting yourself in some way: more than half the days Total score: 23 If you checked off any problems, how difficult have these problems made it for you to do your work, take care of things at home, or get along with other people?: very difficult Source: Developed by Drs. Armond Will, Moira Jay, Lito Armas and colleagues, with an educational kayy from [employer]. Suicide Severity Rate CSSRS Have you wished you were or wished you could go to sleep and not wake up?: Yes Have you actually had any thoughts of killing yourself?: Yes CSSRS2 Have you been thinking about how you might do this?: Yes Have you had these thoughts and had some intention of acting on them?: No Have you started to work out or worked out the details of how to kill yourself? Do you intend to carry out this plan?: Yes CSSRS3 Have you ever done anything, started to do anything or prepared to do anything to end your life?: Yes CSSRS4 Was this within the past three months?: Yes Screening Score Total Score: 8 Screening: Positive Mental Health Emergency Note Release [facility] release signed:: No Reason for Visit Client presented to [facility] with worsening depression symptoms and fleeting suicidal ideations. In the last 2 weeks has the pt presented for ES prior to today?: No Client Information Client is: Children[facility] Well Housed: No,status: Not homeless, Non Suicidal Self Injury Current: Yes, Client used a knife to make superficial burn tejeda on forearm today. History: yes, Hx of NSSI Safety Risk/Harm to Self or Others Current Ideation to Harm Self or Others: Yes to self. (Client currently endorsing SI, stating if I had a gun I would shoot myself right now. Client rates his intent a 9/10 if he were to leave the hospital. ) Intent: yes, has intent. Plan: yes,has a plan. History of suicide attempt: yes,history of suicide attempt reported. Details of previous suicide attempt: Involuntarily hospitalized in August of 2021. Risk: Does risk to harm exist?: yes. Risk: High Risk Duty to warn indicated: No Asssessment/Mental Status Appearance: Disheveled and Poor hygiene Attitude: Guarded Behavior: Unremarkable Speech: Soft and Slow Affect: Flat and Cogruent with mood Mood: Sad, Stressed, Depressed and Anxious Thought process: Blocking Hallucinations: No Delusions: No Attention: Inattention and Poor concentration Perception: Not impaired Orientation: Fully orientated Memory: Intact Insight: Poor Judgement: Poor Neurovegetative Symptoms Sleep: Decrease (Client reports very poor sleep) Appetitie: Decrease (Client reports vert poor appetite. ) Interests: Decrease (Client reports no interest in doing things) Energy: Decrease (Client reports very poor energy. ) Libido: Not applicable Substance Use: Do you use nicotine?: No Have you used substances in the last 7 days?: yes, Marijuana daily. Additional Issues: Assaultive/Threatening Behavior: No Medical Concerns: No Client engaged in active self harm w/weapon: No Threatening to run away: No Child reported abuse/neglect: No Voluntarily presenting for services: Yes Domestic violence is a concern: No Extreme Psychosis or extreme behavior is present: No Impression Client is a 21 y/o single male that lives in [place], [place] with his mother. Clients employment status is unknown to this financial underwriter. Client is seen via zoom. Client presents with symptoms most congruent with major depressive disorder as evidenced by tearfullness, very flat affect and self report or decreased energy and interest in doing things that used to bring him keyanna. Client also reports that he has not been able to sleep and have a very poor appetite. Client presents with very flat affect and engages with this financial underwriter minimally during the assessment, only completing about half of the assessment. Client reports that he had been having worsening depression coupled with suicidal ideations, however is unable to tell this financial underwriter how long he has been having an altered mental status. Client would benefit from inpatient treatment to explore medications, reduce SI, and learn coping skills. Client would also benefit from wrap out services (therapy and psychiatry upon discharge from treatment.) Plan/Disposition Recommended Disposition: Hospitalization (Referrals will be faxed to [facility] and [facility] in the morning as they are currently the only accepting hospitals. ) facilities contacted. Plan: Client will remain at [facility] ED on voluntary status pending admission to an inpatient facility. Client will be re-assessed by [facility] daily until placement is secured or clients acuity level decreases and he is able to be safety planned home. Should client want to leave the hospital [facility] should be notified for consult and EE may be explored based on this writers assessment tonight. Person reported agreement to plan: Yes Reports/communication Outcome discussed with: ED/Personnel (Verbal passover given to ED provider Alex Anderson)
[2022-06-02 22:51] LABS: Source Nasal/Nares
[2022-06-02 23:20] LABS: COVID-19 PCR Negative (Negative)
--- NOTE | 2022-06-03 08:14 | NUR.NOTE ---
Nursing Note:Piero [phone]
[2022-06-03 09:29] VITALS: BP 131/77; PULSE 94; RESP 14; TEMP 36.5; O2SAT 98
--- NOTE | 2022-06-03 09:44 | PDOC.CMSAFED ---
- If Service Date Differs Date of service: 06/03/22 Time of Service: 09:44 Care Management Safety Plan Status: Voluntary - Reason for Wait Reason for Wait: Inpatient Admission
--- NOTE | 2022-06-03 09:47 | CMSP_ITS ---
- If Service Date Differs Date of service: 06/03/22 Time of Service: 09:47 Care Management Safety Plan Status: Voluntary - Reason for Wait Reason for Wait: Inpatient Admission VOLUNTARY FOR INPATIENT PSYCHIATRIC STABILIZATION. Patient is appropriate in all interactions since arriving at [facility]; Pt has demonstrated appropriate coping and communication skills, has articulated his or her needs and concerns and is fully engaged during staff interactions. Safety plan has been established with patient, and care team, to adhere to patient goals, identify restrictions based on behavioral status, address nutrition, and determine allowed personal belongings, tools for hygiene and personal care. Determine level of activity including ambulation, level of supervision, visitors, and determine privileges based on behaviors and level of engagement by pt. SAFETY PLAN: 1. Will remain on suicide precautions. In Paper Clothes 2. Will remain in room under direct supervision of one-on-one staff at all times provided by [facility]; WILLIAM, DRIVE IN WAITER/WAITRESS senior facilities manager. 3. May have paper cups, plates, finger foods as well as a cardboard spoon with which to eat meals. 4. Follow [facility] Management of the Admitted Behavioral Health Patient policy. 5. Comfort bath system only, shower permitted with escort at RN discretion. 6. No personal belongings-soft items permitted at RN discretion. 7. Visitors-both mother nad father may visit per nursing discretion. 8. Activities: soft cart items approved per RN discretion. 9. Bathroom privileges with escort in the ED, available in room without limitation on M/S. 10. Phone: contact limited to family at this time, via cordless phone at RN discretion. 11. Due to VOLUNTARY status, if patient wishes to leave [facility], staff will contact [facility] Crisis Screener ([phone]) and On-Call Patient Financial Services Coordinator ([phone]) as soon as possible. In the event of elopement, notify [place] [employer] ([phone]). Patient is currently voluntarily at [facility] and seeking inpatient admission when a bed becomes available. [facility] Frontline Chemistry Technical Officer will continue seeking placement. Please contact the Director Physical Patient Financial Services Coordinator ([phone]) and [facility] Chemistry Technical Officer ([phone]) for any needed changes in the Safety Plan. Safety plan has been provided to interdepartmental care team.
--- NOTE | 2022-06-03 12:01 | MHPN_ITS ---
Date of service: 06/03/22 Time of Service: 10:40 Mental Health Emergency Note Release [facility] release signed:: Yes Reason for Visit Client presented to [facility] ED on 06/02/22 for fleeting thoughts of SI and worsening depression symptoms. Client was reassessed via zoom on 06/03/22 by this sheet writer. In the last 2 weeks has the pt presented for ES prior to today?: Unknown Client Information Client is: Children[facility] ( Emergency) Well Housed: Yes Non Suicidal Self Injury Current: Yes, Client reports that he is currently endorsing NSSI. Client reports having thoughts of engaging in NSSBI's such as: cutting himself with a knife/burning himself with a roofing laborer/pass out by choking self. Client rated himself on a self-rated a 3/4 on a rating scale of 0-10, 0 being not at all to 10 being 100% how likely he felt he would be to act on his thoughts of NSSI, if he were to leave the ED today. History: yes, Per [facility] Padmini Shearer report: Per client's report, he used a roofing laborer to make superficial dennis on his forearms on 06/02 prior to presenting to the ED. Safety Risk/Harm to Self or Others Current Ideation to Harm Self or Others: Yes to self. (Client reports currently endorsing thoughts of SI. Client reports plan/intent to cut himself with the intetion to if he were to the leave the ED. Client's plan was unable to be disabled at this time.) Intent: yes, has intent. Plan: yes,has a plan. History of suicide attempt: yes,history of suicide attempt reported. Details of previous suicide attempt: Client would not disclose details of past attempts with this sheet writer. Asssessment/Mental Status Appearance: Disheveled Attitude: Guarded Behavior: Agitated Speech: Soft and Hesitant Affect: Flat and Cogruent with mood Mood: Depressed, Anxious and Angry Thought process: Unremarkable Hallucinations: No evidence (Client denies ) Delusions: No evidence (Client denies) Attention: Wandering and Poor concentration Perception: Not impaired Orientation: Fully orientated Memory: Intact Insight: Fair (When asked if client could keep himself safe if leaving the ED today, client responded, I do not care about my thoughts of suicide what happens happens.) Judgement: Fair Neurovegetative Symptoms Sleep: No change (Unknown, client refused to answer this sheet writer's question relating to sleep habbits.) Appetitie: No change (Unknown, client refused to answer this sheet writer's question relating to eating habbits.) Interests: No change (Unknown, client refused to answer this sheet writer's question relating to intrests.) Energy: No change (Unknown, client refused to answer this sheet writer's question realting to energy.) Libido: Not applicable Impression Client is a 21 y/o single male that lives in [place], [place] with his father. Clients employment status is unknown to this sheet writer. Client was assessed by this sheet writer via zoom for reassessment. Client was located at [facility] ED, and this sheet writer was located at [facility] at the time of the screening. Client was limited in his responses and selectively engaged in conversation with this sheet writer. Client refused to answer a majority of this sheet writer's questions and often responded, I am not going to answer that. Client presents with very flat affect. Client refused to comment on his recent sleep/eating habits. Client re ports, he would like to go home. When this sheet writer asked client what has changed for him today versus last night, client responded, I do not know, I just needed a place to gather my thoughts and get a short break but nothing else has really changed for me. This client asked if he felt he could keep himself safe at home, client responded, I guess so I am not really sure. At this point in the screening client requested for this sheet writer to speak with his father and develop a SP for him to go home. This sheet writer explained to client, SP would only be considered as an option if his father (his only identified natural support) was willing to actively partake in the SP. After screening client, this sheet writer spoke with Charge nurse Lora at 10:55 am, who reports she was in contact with client's father Piero earlier this AM. Per Brie report, Piero identified concerns about client being discharged on SP. This sheet writer consulted with Piero, who is not in agreeable of SP being developed and reports he feels client can not remain safe at home in his care if a SP were to be developed. Client would benefit from inpatient treatment to explore medications, reduce SI, and learn coping skills. Client would also benefit from wrap out services (therapy and psychiatry upon discharge from treatment.) This sheet writer then completed follow-up call with client at 11:30 am and informed him SP would not be developed at this time due to the level of risk to self. Client reports he understood and is agreeable to remain in ED at this time. Plan/Disposition Recommended Disposition: Hospitalization (Referrals for IP [place] will be sent) facilities contacted. Plan: Client will remain at [facility] ED on voluntary status pending admission to an inpatient facility. Client will be re-assessed by [facility] daily until placement is secured or clients acuity level decreases and he is able to be safety planned home. Should client want to leave the hospital [facility] should be notified for consult and EE may be explored based on this sheet writer's assessment today. Person reported agreement to plan: Yes Facilities contacted if Applicable [facility] (Pending Review) Not accepted, (Pending Review) Other [facility] (Pending Review) Not accepted, (Pending Review) Other [facility] (Pending Review) Not accepted, (Pending Review) [facility] (Pending Review) Not accepted, (Pending Review) Other Reports/communication Outcome discussed with: ED/Personnel (This sheet writer consulted with attending charge nurse Lora. This sheet writer informed Lora, if attending Physican Dr. Barrientos had any follow-up questions/concerns to reach out to this sheet writer)
--- NOTE | 2022-06-03 14:39 | PDOC.ERCMPRO ---
- If Service Date Differs Date of service: 06/03/22 Time of Service: 14:40 Care Management Progress Note S/O:Ijeoma was lying on his stretcher in the ED when CM met with him. His eyes were closed but he did not appear to be sleeping. When CM addressed him he opened his eyes but did not fully engage or maintain eye contact. This morning Ijeoma's mother came to see him but as she was not on his HIPAA and his safety plan did not allow for visitors, she did not have the opportunity to see him. CM contacted Yesika, the [facility] crisis screener who met with him today, and she was unaware of any reason not to allow her to visit. When Ijeoma was askjed, he indicated that he would like both his mother and father to be able to visit.The Safety plan was updated to that effect. Ijeoma informed Yesika this morning that he does not wish to remain at [facility]. She informed him that his participation in his plan of care is important and would like for him to remain voluntary. If not, they will seek a warrant. Ijeoma agreed to stay for now. A: Ijeoma is a 21 year old P:man admitted with SI awaiting voluntary IP treatment P: Ijeoma is awaiting voluntary inpatient psychiatric treatment for SI
--- NOTE | 2022-06-04 10:02 | NUR.NOTE ---
Nursing Note: Talat from [facility] called to speak with the patient. Sadia brought the portable phone into him, he opened his eyes and then closed then. I then went into the room with the portable and attempted to get the patient to speak with Talat. The patient just closed his eyes and shook his head. He refused to speak with Talat. I let Talat know that he would not speak with him and the MD was also informed of the refusal to speak with Noam.
--- NOTE | 2022-06-04 12:05 | PDOC.MHPN2 ---
Date of service: 06/04/22 Time of Service: 10:15 PHQ-9 Over the last 2 weeks, how often have you been bothered by any of the following problems? 1. Little interest or pleasure in doing things: nearly every day 2. Feeling down, depressed, or hopeless: nearly every day 3. Trouble falling or staying asleep, or sleeping too much: nearly every day 4. Feeling tired or having little energy: nearly every day 5. Poor appetite or overeating: nearly every day 6. Feeling bad about yourself - or that you are a failure or have let yourself and your family down: nearly every day 7. Trouble concentrating on things, such as reading the newspaper or watching television: not at all 8. Moving or speaking so slowly that other people could have noticed? - Or the opposite - being so fidgety or restless that you have been moving around a lot more than usual: nearly every day 9. Thoughts that you would be better off or of hurting yourself in some way: more than half the days Total score: 23 If you checked off any problems, how difficult have these problems made it for you to do your work, take care of things at home, or get along with other people?: very difficult Source: Developed by Drs. Armond Will, Moira Jay, Lito Armas and colleagues, with an educational kayy from [employer]. Suicide Severity Rate CSSRS Have you wished you were or wished you could go to sleep and not wake up?: Yes Have you actually had any thoughts of killing yourself?: Yes CSSRS2 Have you been thinking about how you might do this?: Yes Have you had these thoughts and had some intention of acting on them?: No Have you started to work out or worked out the details of how to kill yourself? Do you intend to carry out this plan?: Yes CSSRS3 Have you ever done anything, started to do anything or prepared to do anything to end your life?: Yes CSSRS4 Was this within the past three months?: Yes Screening Score Total Score: 8 Screening: Positive Mental Health Emergency Note Release [facility] release signed:: Yes Reason for Visit Client presented to [facility] ED on 06/02/22 for fleeting thoughts of SI and worsening depression symptoms. Client was reassessed via zoom on 06/04/22 by this underwriter mortgage loan. In the last 2 weeks has the pt presented for ES prior to today?: Unknown Client Information Client is: Children's ( Emergency) Well Housed: Yes Non Suicidal Self Injury Current: No History: yes, Per ESC Padmini Shearer report: Per client's report, he used a transfer machine operator to make superficial dennis on his forearms on 06/02 prior to presenting to the ED. Safety Risk/Harm to Self or Others Current Ideation to Harm Self or Others: Yes to self. (Client reports currently endorsing thoughts of SI. Client reports plan/intent to cut himself with the intetion to if he were to the leave the ED. Client's plan was unable to be disabled at this time.) Intent: yes, has intent. Plan: yes,has a plan. History of suicide attempt: yes,history of suicide attempt reported. Details of previous suicide attempt: Client would not disclose details of past attempts with this underwriter mortgage loan. Risk: Does risk to harm exist?: yes. Risk: Moderate Risk Duty to warn indicated: No Asssessment/Mental Status Appearance: Disheveled and Poor hygiene Attitude: Guarded Behavior: Agitated Speech: Soft and Hesitant Affect: Flat and Cogruent with mood Mood: Depressed, Anxious and Angry Thought process: Unremarkable Hallucinations: No evidence (Client denies ) Delusions: No evidence (Client denies) Attention: Wandering and Poor concentration Perception: Not impaired Orientation: Fully orientated Memory: Intact Insight: Fair (When asked if client could keep himself safe if leaving the ED today, client responded, I do not care about my thoughts of suicide what happens happens.) Judgement: Fair Neurovegetative Symptoms Sleep: No change (Unknown, client refused to answer this underwriter mortgage loan's question relating to sleep habbits.) Appetitie: No change (Unknown, client refused to answer this underwriter mortgage loan's question relating to eating habbits.) Interests: No change (Unknown, client refused to answer this underwriter mortgage loan's question relating to intrests.) Energy: No change (Unknown, client refused to answer this underwriter mortgage loan's question realting to energy.) Libido: Not applicable Additional Issues: Assaultive/Threatening Behavior: No Medical Concerns: No Client engaged in active self harm w/weapon: No Threatening to run away: No Child reported abuse/neglect: No Voluntarily presenting for services: Yes Domestic violence is a concern: No Extreme Psychosis or extreme behavior is present: No Impression Client is a 21 y/o single male that lives in [place], [place] with his father. Clients employment status is unknown to this underwriter mortgage loan. Client was assessed by this underwriter mortgage loan via zoom for reassessment. Client was located at [facility] ED, and this underwriter mortgage loan was located at [facility] office at the time of the screening. . Client presents with symptoms most congruent with major depressive disorder as evidenced by tearfulness, very flat affect and self report or decreased energy and interest in doing things that used to bring him keyanna. Client was limited in his responses and selectively engaged in conversation with this underwriter mortgage loan. Client refused to answer a majority of this underwriter mortgage loan's questions and often responded, I am not going to answer that. Client presents with very flat affect. Client refused to comment on his recent sleep/eating habits. Client reports, he would like to go home. When this underwriter mortgage loan attempts to have conversation with client about voluntary treatment he states: I don't really want to do that, I want to call my dad and reconcile things. This underwriter mortgage loan explained to client based on his current presentation and safety concerns shared by his father going home was not an option at this time it was either voluntary or involuntary treatment. Client states: what you want to see me locked here again. This underwriter mortgage loan explained that we want to see client well and involved in his treatment, however at this time he is unwilling to participate even in talking with [facility] ES. Plan/Disposition Recommended Disposition: Hospitalization (Referrals for IP [place] will be sent) facilities contacted. Plan: Client will remain at [facility] ED on voluntary status pending admission to an inpatient facility. Client will be re-assessed by [facility] daily until placement is secured or clients acuity level decreases and he is able to be safety planned home. Should client want to leave the hospital [facility] should be notified for consult and EE may be explored based on this underwriter mortgage loan's assessment today. Person reported agreement to plan: Yes Facilities contacted if Applicable [facility] (Pending Review) Not accepted, (Pending Review) Other [facility] (Pending Review) Not accepted, (Pending Review) [facility] (Pending Review) Not accepted, (Pending Review) [facility] (Pending Review) Not accepted, (Pending Review) Other Reports/communication Outcome discussed with: ED/Personnel (Verbal passover given to [facility] Ed attending provider Dr. Barrientos who is in agreeance with plan. )
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
--- NOTE | 2022-06-05 06:21 | NUR.NOTE ---
Nursing Note: proposal lead writer asked pt if he would like a shower or a basin to clean up Pt refused at this time and reported that he washed up yesterday. and will do mouth care later
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
--- NOTE | 2022-06-05 08:52 | CMSP_ITS ---
- If Service Date Differs Date of service: 06/04/22 ([employer] down on 06/04/22 ) Time of Service: 10:15 Care Management Safety Plan Status: Voluntary - Guarianship if Applicable Guardianship: Parent - Reason for Wait Reason for Wait: Inpatient Admission VOLUNTARY FOR INPATIENT PSYCHIATRIC STABILIZATION. Patient is appropriate in all interactions since arriving at [facility]; Pt has demonstrated appropriate coping and communication skills, has articulated his or her needs and concerns and is fully engaged during staff interactions. CM communicated with [facility] clinician electronics department manager today, who reported that Noam is reviewing his referral for admission. No beds available today. No changes to safety plan today. Safety plan has been established with patient, and care team, to adhere to pat ient goals, identify restrictions based on behavioral status, address nutrition, and determine allowed personal belongings, tools for hygiene and personal care. Determine level of activity including ambulation, level of supervision, visitors, and determine privileges based on behaviors and level of engagement by pt. SAFETY PLAN: 1. Will remain on suicide precautions. In Paper Clothes 2. Will remain in room under direct supervision of one-on-one staff at all times provided by CPSO; WILLIAM, SCREW CUTTER helpdesk administrator. 3. May have paper cups, plates, finger foods as well as a cardboard spoon with which to eat meals. 4. Follow [facility] Management of the Admitted Behavioral Health Patient policy. 5. Comfort bath system only, shower permitted with escort at RN discretion. 6. No personal belongings-soft items permitted at RN discretion. 7. Visitors-both mother nad father may visit per nursing discretion. 8. Activities: soft cart items approved per RN discretion. 9. Bathroom privileges with escort in the ED, available in room without limitation on M/S. 10. Phone: contact limited to family at this time, via cordless phone at RN discretion. 11. Due to VOLUNTARY status, if patient wishes to leave [facility], staff will contact [facility] Crisis Screener ([phone]) and On-Call Scroll Shear Operator ([phone]) as soon as possible. In the event of elopement, notify [facility] Police ([phone]). Patient is currently voluntarily at [facility] and seeking inpatient admission when a bed becomes available. [facility] Frontline Online Content Developer will continue seeking placement. Please contact the Corporate Staff Accountant Scroll Shear Operator ([phone]) and [facility] Online Content Developer ([phone]) for any needed changes in the Safety Plan. Safety plan has been provided to interdepartmental care team.
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
--- NOTE | 2022-06-05 10:19 | NUR.NOTE ---
patient's mother attempted to visit patient and was advised by nursing and care management that at this time Kaberial is not allowed any visitors until the team meets for a huddle and goes over the information and incident that occurred yesterday.
--- NOTE | 2022-06-05 10:38 | PDOC.CMSAFED ---
- If Service Date Differs Date of service: 06/05/22 Time of Service: 10:38 Care Management Safety Plan Status: Voluntary - Guarianship if Applicable Guardianship: Parent - Reason for Wait Reason for Wait: Inpatient Admission VOLUNTARY FOR INPATIENT PSYCHIATRIC STABILIZATION. Patient is appropriate in all interactions since arriving at [facility]; Pt has demonstrated appropriate coping and communication skills, has articulated his or her needs and concerns and is fully engaged during staff interactions. CM communicated with [facility] clinician pre sales technical consultant today, who reported that Noam is reviewing his referral for admission. No beds available today. No changes to safety plan today. Safety plan has been established with patient, and care team, to adhere to patient goals, identify restrictions based on behavioral status, address nutrition, and determine allowed personal belongings, tools for hygiene and personal care. Determine level of activity including ambulation, level of supervision, visitors, and determine privileges based on behaviors and level of engagement by pt. SAFETY PLAN: 1. Will remain on suicide precautions. In Paper Clothes 2. Will remain in room under direct supervision of one-on-one staff at all times provided by CPSO; WILLIAM, DIRECTOR ENERGY supervisor home economics. 3. May have paper cups, plates, finger foods as well as a cardboard spoon with which to eat meals. 4. Follow [facility] Management of the Admitted Behavioral Health Patient policy. 5. Comfort bath system only, shower permitted with escort at RN discretion. 6. No personal belongings-soft items permitted at RN discretion. 7. Visitors-father may visit per nursing discretion. 8. Activities: soft cart items approved per RN discretion. 9. Bathroom privileges with escort in the ED, available in room without limitation on M/S. 10. Phone: contact limited to father at this time, via cordless phone at RN discretion. 11. Due to VOLUNTARY status, if patient wishes to leave [facility], staff will contact [facility] Crisis Screener ([phone]) and On-Call Family Welfare Social Work Professor ([phone]) as soon as possible. In the event of elopement, notify [place] Police ([phone]). Patient is currently voluntarily at [facility] and seeking inpatient admission when a bed becomes available. [facility] Frontline Astronomy Teacher will continue seeking placement. Please contact the Lead Burner Helper Family Welfare Social Work Professor ([phone]) and [facility] Astronomy Teacher ([phone]) for any needed changes in the Safety Plan. Safety plan has been provided to interdepartmental care team.
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
[2022-06-05 13:41] VITALS: BP 137/70; PULSE 70; TEMP 36.6; O2SAT 96
[2022-06-05 14:22] VITALS: BP 137/70; PULSE 70; RESP 16; O2SAT 96
[2022-06-05 14:35] VITALS: BP 127/77; PULSE 76; RESP 16; TEMP 36.9; O2SAT 98
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
[2022-06-06 01:30] VITALS: BP 113/67; PULSE 74; RESP 16; TEMP 36.6; O2SAT 99
[2022-06-06 08:02] VITALS: BP 118/75; PULSE 67; RESP 14; TEMP 36.6; O2SAT 97
--- NOTE | 2022-06-06 09:22 | CMPROGNOTE_ITS ---
- If Service Date Differs Date of service: 06/06/22 Time of Service: 09:22 Care Management Progress Note S/O:Ijeoma is awaiting placement in a psychiatric facility. he has been in voluntary status until today. [facility] Attila. He agreed after discussing this with [facility] Crisis screener Yesika. The call took place around 12 noon, after which [facility] declined to offer him a bed. Apparently during the phone call Attila informed them that he would not take any medication or participate in the plan of care. At that point the decision was made by [facility] Crisis to change Attila's status to EE. The provider paperwork has not been completed as of this hour. A: Ijeoma is a 21 year old man admitted with SI awaiting voluntary IP treatment P: Ijeoma is awaiting voluntary inpatient psychiatric treatment for SI - Guardianship if Applicable Guardianship: Parent
--- NOTE | 2022-06-06 09:24 | CMSP_ITS ---
- If Service Date Differs Date of service: 06/06/22 Time of Service: 09:24 Care Management Safety Plan Status: Voluntary - Guarianship if Applicable Guardianship: Parent - Reason for Wait Reason for Wait: Inpatient Admission VOLUNTARY FOR INPATIENT PSYCHIATRIC STABILIZATION. Patient is appropriate in all interactions since arriving at [facility]; Pt has demonstrated appropriate coping and communication skills, has articulated his or her needs and concerns and is fully engaged during staff interactions. CM communicated with [facility] clinician educational adviser today, who reported that [facility] is reviewing his referral for admission. No beds available today. No changes to safety plan today. Safety plan has been established with patient, and care team, to adhere to patient goals, identify restrictions based on behavioral status, address nutrition, and determine allowed personal belongings, tools for hygiene and personal care. Determine level of activity including ambulation, level of supervision, visitors, and determine privileges based on behaviors and level of engagement by pt. SAFETY PLAN: 1. Will remain on suicide precautions. In Paper Clothes 2. Will remain in room under direct supervision of one-on-one staff at all times provided by [employer]; WILLIAM, TRANSFER DRIVER interior horticulturist. 3. May have paper cups, plates, finger foods as well as a cardboard spoon with which to eat meals. 4. Follow [facility] Management of the Admitted Behavioral Health Patient policy. 5. Comfort bath system only, shower permitted with escort at RN discretion. 6. No personal belongings-soft items permitted at RN discretion. 7. Visitors-father may visit per nursing discretion. 8. Activities: soft cart items approved per RN discretion. 9. Bathroom privileges with escort in the ED, available in room without limitation on M/S. 10. Phone: contact limited to father at this time, via cordless phone at RN discretion. 11. Due to VOLUNTARY status, if patient wishes to leave [facility], staff will contact [facility] Crisis Screener ([phone]) and On-Call Health Sciences Department Chair ([phone]) as soon as possible. In the event of elopement, notify [place] [employer] ([phone]). Patient is currently voluntarily at [facility] and seeking inpatient admission when a bed becomes available. [facility] Frontline Director Software Development will continue seeking placement. Please contact the Elementary Assistant Principal Health Sciences Department Chair ([phone]) and [facility] Director Software Development ([phone]) for any needed changes in the Safety Plan. Safety plan has been provided to interdepartmental care team.
--- NOTE | 2022-06-06 10:13 | PGE_ITS ---
Date of Service Date of service: 06/06/22 Time of Service: 10:13 Assessment and Plan Assessment and plan (1) Depression with suicidal ideation: Status: Acute Assessment and plan: Voluntary admission - medically cleared by ED for mental health evaluation - for increasing depression and suicidal ideation. Mental health consulted; Continue suicidal precautions, 1:1 observation. Reports no medication, has been on Wellbutrin in the past Expresses aversion to take pills due to past history of probable misuse when younger We just used to pop pills (2) Insomnia: Status: Acute Assessment and plan: Agrees to take HS melatonin: Melatonin 6 mg PO PRN HS. Racing idea, no sleep but rested his eyes. Medicine to assist the patient offered: Hydroxyzine is?used to help control anxiety and tension caused by nervous and emotional conditions proposed but patient is refusing scheduled drug. He agreed on PRN reluctantly, does not want any scheduled meds that would alter his ability to think despite saying that he knows he is here for resting his mind. Hydroxyzine 25 mg PO Q 6 hours PRN (3) On deep vein thrombosis (DVT) prophylaxis: Status: Deleted Assessment and plan: Patient is mobile change position often, ambulating in room.We will keep observing for maintained mobility and ambulation patterns,if he was to stay in bed all day we would consider Lovenox subcutaneous injection (4) Discharge planning issues: Status: Deleted Assessment and plan: Defer to mental health. This morning he expressed his reluctance to go to a psychiatric facility Discussed with Dr Malin Subjective Subjective Interval history since last seen: Patient reports feeling better, and having an increase in both fluid and food intake. He denies nausea or constipation. He denies chills, night sweats, but reports his inability to sleep throughout the night due to racing thoughts. He denies abdominal discomfort when voiding, reports new lower back pain 5/10 , denies chest pain, palpitation, difficulty breathing, reports voiding yellow urine. He reports feeling that he would not like to have an alternative discharge place besides home; he specifically refused to go back to [facility]. He denies auditory and visual hallucinations. Exam Narrative Exam Narrative: Patient is alert and orient to person and space, he did not know the exact date but knew it was the end of May No focal neurological deficit, S1, S2, no murmur, no edema, pulses are present to ext. lungs are bilaterally clear Abdomen is soft, non-tender, scaphoid, bowel sounds are present push and pull 5/5 to upper and lower ext. Patient is shaking and restless during interview depending on the subject discussed. Objective Last Vital Signs Temp 97.9 F 06/06/22 08:02 Pulse 67 06/06/22 08:02 Resp 14 06/06/22 08:02 BP 118/75 06/06/22 08:02 Pulse Ox 97 06/06/22 08:02 PAWSS Have you Been Recently Intoxicated or Drunk Within the Last 30 days?: Yes Have you Ever Experienced Previous Episodes of Alcohol Withdrawal?: No Have you ever Experienced Withdrawal Seizures?: No Have you ever Experienced Delirium Tremens(DT)s?: No Have you ever undergone Alcohol Rehabilitation Treatment (i.e, inpt ot outpatient treatment programs)?: No Have you ever Experienced Blackouts?: No Have you ever Combined Alcohol with other Downers within the last 90 days?: No Have you ever Combined Alcohol with any other Substance of Abuse during the last 90 days?: Yes Evidence of Increased Autonomic Activity (i.e. HR>120, tremor, sweating, agitation, nausea)?: No Result: 3 Time Spent with Patient Time Spent with Patient: >50 minutes Time was spent: preparing to see the patient(eg.review tests)
--- NOTE | 2022-06-06 14:12 | MHPN_ITS ---
Date of service: 06/06/22 Time of Service: 11:06 Mental Health Emergency Note Release [facility] release signed:: Yes Reason for Visit Client presented to [facility] ED on 06/02 for fleeting thoughts of SI and worsening depression symptoms. Client was reassessed in person by this mortgage loan underwriter on 06/06 for daily screening. In the last 2 weeks has the pt presented for ES prior to today?: Unknown Client Information Client is: Adult Outpatient Well Housed: Yes Non Suicidal Self Injury Current: Yes, Client reports currently endorsing thoughts of engaging in NSSIB's. Client declined to provide this mortgage loan underwriter with details regarding his plan/level of intent regarding NSSI. History: yes, Per [facility] Padmini Shearer report: ?Per client's report, he used a diesel bus mechanic to make superficial dennis on his forearms on 06/02 prior to presenting to the ED. Safety Risk/Harm to Self or Others Current Ideation to Harm Self or Others: Yes to self. (Client reports currently endorsing thoughts of SI. Client reports plan/intent to use a gun with the intention to if he were to the leave the ED. Client's plan was unable to be disabled at this time. ) Intent: yes, has intent. Plan: yes,has a plan. History of suicide attempt: yes,history of suicide attempt reported. Details of previous suicide attempt: Client reports past history of suicide attempts; however, client would not disclose details of past attempts with this mortgage loan underwriter. Asssessment/Mental Status Appearance: Disheveled Attitude: Guarded Behavior: Unremarkable Speech: Soft and Hesitant Affect: Flat and Cogruent with mood Mood: Depressed and Anxious Thought process: Unremarkable Hallucinations: No evidence Delusions: No evidence Attention: Unremarkable Perception: Not impaired Orientation: Fully orientated Memory: Intact Insight: Poor Judgement: Poor Neurovegetative Symptoms Sleep: Decrease Appetitie: Decrease Interests: Decrease Energy: Decrease Libido: Not applicable Impression Client is a 21 y/o single male that lives in [place], [place] with his father. Clients employment status is unknown to this mortgage loan underwriter. Client was assessed by this mortgage loan underwriter in person for F2F screening. Client was located at [facility]. Client was limited in his responses and selectively engaged in conversation with this mortgage loan underwriter. Client refused to answer a majority of this mortgage loan underwriter's questions and often responded, I am not going to answer that. On 06/06, when client was rescreened by this mortgage loan underwriter, client reports ongoing he would like to go home, ?in order to stabilize and attend therapy sessions?. It should be noted, client?s therapist Lauren Cowan attempted to make contact with client during his time at [facility], it was reported to this mortgage loan underwriter by client, he refused to engage in conversation in Chapo?s attempt, ?due to her not being able to provide him with what he needs?. When this mortgage loan underwriter asked for further clarification on what client?s current needs were, client responded, ?I need to go home, have a stiff drink, and go into the [place] and watch the snow fall?. Plan/Disposition Recommended Disposition: Hospitalization facilities contacted. Plan: Client is demonstrating poor insight and judgement which puts himself at great risk noted in the threatening and dangerous behavior. He is a person who is demonstrating the inability to safely navigate in the community at this time is in need of intense short-term treatment to assess his needs and safety plan back to the community when he is able to show improved insight, judgment, and decision- making skills. Client has been at [facility] since 06/02/22, seeking placement. This am client was accepted to [facility], however upon conversation with [facility], client stated he would refuse medications and other treatment options while at treatment , which resulted in [facility] declining client?s referral. At this time client is currently being held on involuntary status at this time. EE application was submitted to Care Reny Cook at 3:30 pm via email, as well [facility] via fax at 1:39 pm. Client's second certification is scheduled to take place within 24 hrs of submission of application; time is TBD. Facilities contacted if Applicable [facility] (Pending Review ) Not accepted, (Pending review ) Other Reports/communication Outcome discussed with: ED/Personnel (This mortgage loan underwriter consulted with Home Health Care Coordinator Veto Cook upon completeion of screening. )
--- NOTE | 2022-06-06 15:48 | PHA.REVIEW2 ---
Pharmacy Admission Review - Admission Clinical Review (Last Reviewed 06/02/22 @ 22:25 by ALANA Tejada) Discharge planning issues (Acute) Insomnia (Acute) Depression with suicidal ideation (Acute) amoxicillin Allergy (Verified 06/03/22 00:36) rash Resuscitation Status Full Code Height 6 ft Weight 63.6 kg - Renal Dosing Medications needing adjustments: Reviewed (Crcl ~116 mL/min current meds okay) - Anticoagulation DVT Prophylaxis: N/A Therapeutic Anticoagulation: N/A - Opiate Usage Evaluate Pain Scale/Pains Meds: N/A - Relevant Labs Electrolytes, C-Reactive P, ESR: N/A - DM Control DM Control: N/A - Cardiac Review BP, HR, EF%: Reviewed - Qtc Review QTc: N/A - IV to PO Switch IV Medications: Reviewed - Home Meds Home Med List reviewed: Reviewed (no known home meds) - Current meds Current Medication Order Review: Reviewed - Comments Comments/Follow Ups: Watch VS, labs and for med changes.
[2022-06-06 23:27] LABS: Bilirubin Small (Negative); Blood Negative (Negative); Clarity Sl Cloudy (Clear); Glucose Negative (Negative); Ketones Trace mg/dL (Negative); Leukocyte Esterase Negative (Negative); Nitrite Negative (Negative)
[2022-06-06 23:33] LABS: Bacteria Rare HPF (Negative); Casts Negative LPF (Negative); Epithelial Cells Rare HPF (Negative); Mucus Negative (Negative); RBC Negative HPF (0-2); WBC Negative HPF (0-5)
[2022-06-06 23:34] LABS: C & S Indicated? No; Crystals Few Amorphous HPF (Negative)
[2022-06-07 07:19] VITALS: BP 118/76; PULSE 59; RESP 16; TEMP 36.6; O2SAT 99
--- NOTE | 2022-06-07 09:03 | CMPROGNOTE_ITS ---
- If Service Date Differs Date of service: 06/07/22 Time of Service: 09:03 Care Management Progress Note S/O:Ijeoma was changed to Involuntary status today with the second certification pending. He has been accepted at [facility] and the doctor to doctor and nurse to nurse reports have been given. They plan to complete the second certification at [place]. [facility] is arranging for transportation. The nursing webbing supervisor has been advised of the pending transfer. A: Ijeoma is a 21 year old man admitted with SI awaiting involuntary IP treatment P: Ijeoma is awaiting involuntary inpatient psychiatric treatment for SI - Guardianship if Applicable Guardianship: Parent
--- NOTE | 2022-06-07 09:05 | CMSP_ITS ---
- If Service Date Differs Date of service: 06/07/22 Time of Service: 09:05 Care Management Safety Plan Status: Voluntary - Guarianship if Applicable Guardianship: Parent VOLUNTARY FOR INPATIENT PSYCHIATRIC STABILIZATION. Patient is appropriate in all interactions since arriving at [facility]; Pt has demonstrated appropriate coping and communication skills, has articulated his or her needs and concerns and is fully engaged during staff interactions. CM communicated with [facility] clinician operations intelligence today, who reported that Noam is reviewing his referral for admission. No beds available today. No changes to safety plan today. Safety plan has been established with patient, and care team, to adhere to patient goals, identify restrictions based on behavioral status, address nutrition, and determine allowed personal belongings, tools for hygiene and personal care. Determine level of activity including ambulation, level of supervision, visitors, and determine privileges based on behaviors and level of engagement by pt. SAFETY PLAN: 1. Will remain on suicide precautions. In Paper Clothes 2. Will remain in room under direct supervision of one-on-one staff at all times provided by [employer]; WILLIAM, SHIP JOINER grain mill worker. 3. May have paper cups, plates, finger foods as well as a cardboard spoon with which to eat meals. 4. Follow [facility] Management of the Admitted Behavioral Health Patient policy. 5. Comfort bath system only, shower permitted with escort at RN discretion. 6. No personal belongings-soft items permitted at RN discretion. 7. Visitors-father may visit per nursing discretion. 8. Activities: soft cart items approved per RN discretion. 9. Bathroom privileges with escort in the ED, available in room without limitation on M/S. 10. Phone: contact limited to father at this time, via cordless phone at RN discretion. 11. Due to VOLUNTARY status, if patient wishes to leave [facility], staff will contact [facility] Crisis Screener ([phone]) and On-Call Agency Director ([phone]) as soon as possible. In the event of elopement, notify [facility] Police ([phone]). Patient is currently voluntarily at [facility] and seeking inpatient admission when a bed becomes available. [facility] Frontline Landscape Painter will continue seeking placement. Please contact the Night Time Babysitter Agency Director ([phone]) and [facility] Landscape Painter ([phone]) for any needed changes in the Safety Plan. Safety plan has been provided to interdepartmental care team.
--- NOTE | 2022-06-07 14:17 | PDOC.MHPN2 ---
Date of service: 06/07/22 Time of Service: 11:55 Suicide Severity Rate CSSRS Have you wished you were or wished you could go to sleep and not wake up?: Yes Have you actually had any thoughts of killing yourself?: Yes CSSRS2 Have you been thinking about how you might do this?: No Have you had these thoughts and had some intention of acting on them?: No Have you started to work out or worked out the details of how to kill yourself? Do you intend to carry out this plan?: No CSSRS3 Have you ever done anything, started to do anything or prepared to do anything to end your life?: No CSSRS4 Was this within the past three months?: No Screening Score Total Score: 4 Screening: Positive Mental Health Emergency Note Release [facility] release signed:: Yes Reason for Visit Ijeoma presents to the emergency room due to his current state and suicidal ideation. In the last 2 weeks has the pt presented for ES prior to today?: Unknown Client Information Client is: [facility]: Yes Non Suicidal Self Injury Current: No History: yes, Ijeoma reports prior history of self cutting, self burning, and banging his head on a wall. Safety Risk/Harm to Self or Others Current Ideation to Harm Self or Others: Yes to self. (Ijeoma reports several ways he could attempt to harm himself including a gun, a knife, jumping out a window, and jumping off the roof.) Intent: no, has no intent. Plan: no.does not have a plan. History of suicide attempt: No history of suicide attempt reported Risk: Does risk to harm exist?: No Risk: N/A Duty to warn indicated: No Asssessment/Mental Status Appearance: Disheveled Attitude: Passive Behavior: Unremarkable Speech: Soft Affect: Flat Mood: Anxious Thought process: Tangential Hallucinations: No evidence Delusions: No evidence Attention: Unremarkable Perception: Not impaired Orientation: Fully orientated Memory: Intact Insight: Poor Judgement: Poor Neurovegetative Symptoms Sleep: No change Appetitie: No change Interests: No change Energy: No change Libido: Not applicable Substance Use: Do you use nicotine?: Yes Have you used substances in the last 7 days?: No Additional Issues: Assaultive/Threatening Behavior: No Medical Concerns: No Client engaged in active self harm w/weapon: No Threatening to run away: No Child reported abuse/neglect: No Voluntarily presenting for services: No Domestic violence is a concern: No Extreme Psychosis or extreme behavior is present: No Impression Ijeoma continues to endorse suicidal ideation with several options as to how he could harm himself. Ijeoma is extremely flat presenting as if he does not care what happens next in his treatment. Ijeoma is in significant need for short term intensive treatment. Ijeoma was EEd, please view EE in Ijeoma's chart for further information. Plan/Disposition Recommended Disposition: Hospitalization (waiting on second cert) facilities contacted. Plan: Ijeoma is waiting to be seen by a state psychiatrist for a second cert to move forward with admission to an inpatient facility. Person reported agreement to plan: No Reports/communication Outcome discussed with: ED/Personnel
--- NOTE | 2022-06-07 15:59 | CMSP_ITS ---
- If Service Date Differs Date of service: 06/07/22 Time of Service: 16:03 Care Management Safety Plan Status: Involuntary - Reason for Wait Reason for Wait: Inpatient Admission Safety plan has been established to meet the needs of the patient, and consideration of the care team, to adhere to patient goals, identify restrictions based on behavioral status, address nutrition, and determine allowed personal belongings, tools for hygiene and personal care. Determine level of activity including ambulation, level of supervision, visitors, and determine privileges based on behaviors and level of engagement by pt. SAFETY PLAN: 1. Will remain on SI/HI precautions. In Paper Clothes 2. Will remain in room under direct supervision of one-on-one staff at all times provided by [employer]; WILLIAM, PRIMARY PRODUCTS INSPECTORS data network architect. 3. May have paper cups, plates, finger foods as well as a cardboard spoon 4. Follow [facility] Management of the Admitted Behavioral Health Patient policy. 5. Comfort bath system only. 6. No personal belongings 7. Visitors: father only 8. Activities: soft cart items approved per RN discretion. 9. Bathroom privileges 10. Phone: father only at this time 11. Due to INVOLUNTARY status, patient is being held at [facility] by the Department of Mental Health ([facility]) until 2nd certification by [facility] Psychiatrist can be performed (within 24 hours). Staff will provide de-escalation support (CPI) as needed. If patient wishes to leave [facility], staff will contact [facility] Crisis Screener ([phone]) and On-Call Wood Flooring Specialist ([phone]) as soon as possible. In the event of elopement, notify [facility] Police ([phone]). Patient is currently involuntarily at [facility]. [facility] Frontline Rag Collector will continue seeking placement. Please contact the Air Bag Curer Wood Flooring Specialist ([phone]) for any needed changes to Safety Plan. Safety plan has been provided to interdepartmental care team. Patient will be transported by [employer] at time of discharge.
--- NOTE | 2022-06-07 15:59 | PDOC.CMSAFE ---
- If Service Date Differs Date of service: 06/07/22 Time of Service: 16:03 Care Management Safety Plan Status: Involuntary - Reason for Wait Reason for Wait: Inpatient Admission Safety plan has been established to meet the needs of the patient, and consideration of the care team, to adhere to patient goals, identify restrictions based on behavioral status, address nutrition, and determine allowed personal belongings, tools for hygiene and personal care. Determine level of activity including ambulation, level of supervision, visitors, and determine privileges based on behaviors and level of engagement by pt. SAFETY PLAN: 1. Will remain on SI/HI precautions. In Paper Clothes 2. Will remain in room under direct supervision of one-on-one staff at all times provided by [employer]; WILLIAM, VEHICLE WASHER picket labor union. 3. May have paper cups, plates, finger foods as well as a cardboard spoon 4. Follow [facility] Management of the Admitted Behavioral Health Patient policy. 5. Comfort bath system only. 6. No personal belongings 7. Visitors: father only 8. Activities: soft cart items approved per RN discretion. 9. Bathroom privileges 10. Phone: father only at this time 11. Due to INVOLUNTARY status, patient is being held at [facility] by the Department of Mental Health ([facility]) until 2nd certification by [facility] Psychiatrist can be performed (within 24 hours). Staff will provide de-escalation support (CPI) as needed. If patient wishes to leave [facility], staff will contact [facility] Crisis Screener ([phone]) and On-Call Services Executive ([phone]) as soon as possible. In the event of elopement, notify [facility] Police ([phone]). Patient is currently involuntarily at [facility]. [facility] Frontline Wharf Tender Helper will continue seeking placement. Please contact the Engineering Manager Services Executive ([phone]) for any needed changes to Safety Plan. Safety plan has been provided to interdepartmental care team. Patient will be transported by [employer] at time of discharge.
--- NOTE | 2022-06-07 16:43 | W.PM.DS.N ---
Date of service: 06/08/22 Time of Service: 14:00 DS: Diagnosis Discharge Diagnosis (1) Depression with suicidal ideation: Status: Acute (2) Insomnia: Status: Acute Discharge Plan Disposition Patient Disposition: Psychiatric Hospital/Unit Specific Psychiatric Facility: [facility] Condition: Stable Discharge Details Reason For Visit: Depression, SI Admit Date/Time: 06/05/22 13:30 Admit Provider: Alan Dumas Attending Provider: Alan Dumas Primary Care Provider: Donavan Venegas Hospital Course Hospital Course: This is a 21-year-old male, past medical history that includes major depression, ADHD, insomnia, presented to the [facility] ED on 06/02/2022 reporting worsening depression, SI, stated he could shoot himself with a gun,? He denied recent illness or trauma.? He does smoke cigarettes and reports occasional alcohol use as well as marijuana use but denied any other drug use.? Patient stated he lives at home with his father and step-mother, both are good resources for him.? He denied outpatient therapy and is not currently engaged in treatment. He has had one previous admission to [facility] Psychiatry. He was started on Sertraline and Quetiapine, which he decided on his own not to continue after discharge. He has a long history of family turmoil and has difficult relationships with his brother and his mother. His best friend and the love of his life as reported by his father, are a couple and neither speak to [facility] or want anything to do with him. This is very distressful for [facility]. He has some delusions related to the relationship with the girl. He has not seen her in months. After discussion he agreed and was admitted to the medical floor for mental health evaluation and placement.?His urine drug screen was positive for THC, otherwise negative. He is medically clear.? He was evaluated by mental health; they recommend he is admitted to [facility] for psychiatric assessment and treatment.? Patient told the mental health worker he would not take any medications if he went there, but is willing to go voluntarily.? Patient was EE?d per request due to his refusing medications and that he is not safe to return home.? Discussion with Dr Prasad at [facility] ? patient is accepted in transfer. He is discharged stable, to [facility]. ? Discussed with Dr Malin Home Meds and New Rx's Prescriptions: No Action No Known Home Meds Discharge Instructions Stand Alone Forms: Nursing Discharge Form Activity:: Activity as Tolerated Equipment/Supplies:: No Equipment Needed Diet:: As Tolerated Discharge Orders Discharge Orders: Discharge Order (Routine); Ordered 06/08/22 Ordered By: Nevaeh Pete Discharge Data Discharge Date/Time-TO BE ENTERED AT DEPARTURE: 06/08/22 15:09 DS: Summary Time Spent with Patient providing and/or coordinating discharge services: Greater than 30 minutes Status at Discharge Functional status at discharge: independent ambulation Overall status at discharge: patient is progressing back to baseline Mental Status: mental status grossly normal Speech and Movement: speech and movement normal Mood: congruent mood Affect: normal affect Exam Narrative Exam Narrative: Patient is alert and orient to person and space, he did not know the exact date but knew it was the end of May No focal neurological deficit, S1, S2, no murmur, no edema, pulses are present to ext. lungs are bilaterally clear Abdomen is soft, non-tender, scaphoid, bowel sounds are present push and pull 5/5 to upper and lower ext. Psych Mental Status: mental status grossly normal Speech and Movement: speech and movement normal Mood: congruent mood Affect: normal affect DS: Data Vitals/I&O Vitals and I&O: Vital Signs Temperature 36.6 C 06/07/22 07:19 Temperature Source Tympanic 06/07/22 07:19 Pulse 59 L 06/07/22 07:19 Pulse Rhythm Regular 06/07/22 07:45 Respiratory Rate 16 06/07/22 07:19 Respiratory Effort Non-Labored 06/07/22 07:45 Respiratory Depth Normal 06/07/22 07:45 Respiratory Pattern Normal 06/07/22 07:45 Blood Pressure 118/76 06/07/22 07:19 Blood Pressure Position Sitting 06/02/22 20:13 Pulse Oximetry 99 06/07/22 07:19 Oxygen Delivery Method Room Air 06/07/22 07:19 Oxygen Flow Rate 0 06/07/22 07:19 Pain Level 0 06/05/22 14:35 Intake & Output 06/06/22 06/07/22 06/07/22 23:59 11:59 23:59 Intake Total 360 / 360 Balance 360 / 360 Intake: Oral 360 / 360 Other: Urine Color Yellow Urine Appearance Clear Clear Comment pt voided in bathroom and specimen cup. pt voided pT voided. unclear amount/color. Voiding Methods Toilet Toilet Data Completed and Pending Labs on day of discharge: Labs from last 24 hours 06/06/22 06/06/22 23:15 23:15 Urine Color Yellow Urine Clarity Sl Cloudy Urine pH 7.0 Ur Specific [place] 1.020 Urine Protein 30 H Urine Ketones Trace H Urine Blood Negative Urine Nitrite Negative Urine Bilirubin Small H Urine Urobilinogen 1.0 H Ur Leukocyte Esterase Negative Urine RBC Negative Urine WBC Negative Ur Epithelial Cells Rare Urine Crystals Few Amorphous Urine Bacteria Rare Urine Casts Negative Urine Mucus Negative Ur Culture Indicated? No Urine Glucose Negative Chlamydia DNA Probe Pending Chlamydia/GC DNA Source Pending N.gonorrhoeae DNA Probe Pending [facility] All Active Problems (Updated 06/09/22 @ 18:59 by Nevaeh Pete NP) Discharge planning issues (Acute) DVT prophylaxis (Acute) Major depression (Chronic) ADHD (attention deficit hyperactivity disorder) (Acute) Auditory hallucination (Acute) Homicidal ideation (Acute) Insomnia (Acute) Depression with suicidal ideation (Acute) Weight loss (Acute) ? depression related - labs History of penicillin allergy (Acute 01/15/12) Family History Mother No problems noted. Father Depression Grandparent Heart disease Hyperlipidemia Mental disorder Sister No problems noted. Brother No problems noted. Social History Smoking/Tobacco Use Status: Current every day Tobacco Type: cigarettes, pipe, cigars, e-cigarettes and smokeless tobacco Smokeless tobacco user: chewing tobacco Quit status: considering quitting Second Hand Exposure: Yes Smoking risk assessment performed?: Yes Alcohol Intake: current Alcohol Intake frequency: a few times a week Drug use: Rarely Substance use type: marijuana Caregiver/Support person: No Household members: family Housing: house Communication Needs: Corrective Lenses Do you need help understanding health information?: Never Pets and animals: Yes Pets and animals: cat(s) Sexually active: Yes Do you think of yourself as: straight/heterosexual Current gender identity: male How often do you talk on the phone with friends or family?: once per week How often do you get together with friends or relatives?: twice per week Do you belong to any clubs or organized social groups?: no Panel score (0-1 are the most socially isolated patients): 1 What type of physical activity do you participate in: walking, weight lifting and running Duration: 15-30 minutes/day Frequency: 3-4 times per week Edna/Moravian: Athiest Seatbelt use: always Helmet use: Yes Helmet use: always Drive intox or ride w/intox six horse hitch driver: No Do you feel safe at home: Yes Do you feel safe in your relationship?: Yes Time Spent with Patient Time Spent with Patient: 45-69 minutes Time was spent: preparing to see the patient(eg.review tests), referring, communicating with other health adult live in caregiver, counseling the patient and care coordination
[2022-06-07 20:33] VITALS: BP 131/63; PULSE 62; RESP 16; O2SAT 98
[2022-06-08 08:11] VITALS: BP 119/74; PULSE 59; RESP 16; TEMP 37; O2SAT 99
--- NOTE | 2022-06-08 09:24 | CMSP_ITS ---
- If Service Date Differs Date of service: 06/08/22 Time of Service: 09:24 Care Management Safety Plan Status: Involuntary - Guarianship if Applicable Guardianship: Parent - Reason for Wait Reason for Wait: Inpatient Admission Safety plan has been established to meet the needs of the patient, and consideration of the care team, to adhere to patient goals, identify restrictions based on behavioral status, address nutrition, and determine allowed personal belongings, tools for hygiene and personal care. Determine level of activity including ambulation, level of supervision, visitors, and determine privileges based on behaviors and level of engagement by pt. SAFETY PLAN: 1. Will remain on SI/HI precautions. In Paper Clothes 2. Will remain in room under direct supervision of one-on-one staff at all times provided by [employer]; WILLIAM, IDEA WORKER door repairer bus. 3. May have paper cups, plates, finger foods as well as a cardboard spoon 4. Follow [facility] Management of the Admitted Behavioral Health Patient policy. 5. Comfort bath system only. 6. No personal belongings 7. Visitors: father only 8. Activities: soft cart items approved per RN discretion. 9. Bathroom privileges 10. Phone: father only at this time 11. Due to INVOLUNTARY status, patient is being held at [facility] by the Department of Mental Health ([facility]) until 2nd certification by [facility] Psychiatrist can be pe rformed (within 24 hours). Staff will provide de-escalation support (CPI) as needed. If patient wishes to leave [facility], staff will contact [facility] Crisis Screener ([phone]) and On-Call Archaeologist ([phone]) as soon as possible. In the event of elopement, notify [place] State Police ([phone]). Patient is currently involuntarily at [facility]. [facility] Frontline Digital Advisor will continue seeking placement. Please contact the Applications Engineer Archaeologist ([phone]) for any needed changes to Safety Plan. Safety plan has been provided to interdepartmental care team. Patient will be transported by [employer] at time of discharge.
--- NOTE | 2022-06-08 09:24 | PDOC.CMSAFE ---
- If Service Date Differs Date of service: 06/08/22 Time of Service: 09:24 Care Management Safety Plan Status: Involuntary - Guarianship if Applicable Guardianship: Parent - Reason for Wait Reason for Wait: Inpatient Admission Safety plan has been established to meet the needs of the patient, and consideration of the care team, to adhere to patient goals, identify restrictions based on behavioral status, address nutrition, and determine allowed personal belongings, tools for hygiene and personal care. Determine level of activity including ambulation, level of supervision, visitors, and determine privileges based on behaviors and level of engagement by pt. SAFETY PLAN: 1. Will remain on SI/HI precautions. In Paper Clothes 2. Will remain in room under direct supervision of one-on-one staff at all times provided by [employer]; WILLIAM, TREE MARKER cancer program coordinator. 3. May have paper cups, plates, finger foods as well as a cardboard spoon 4. Follow [facility] Management of the Admitted Behavioral Health Patient policy. 5. Comfort bath system only. 6. No personal belongings 7. Visitors: father only 8. Activities: soft cart items approved per RN discretion. 9. Bathroom privileges 10. Phone: father only at this time 11. Due to INVOLUNTARY status, patient is being held at [facility] by the Department of Mental Health ([facility]) until 2nd certification by [facility] Psychiatrist can be performed (within 24 hours). Staff will provide de-escalation support (CPI) as needed. If patient wishes to leave [facility], staff will contact [facility] Crisis Screener ([phone]) and On-Call Manufacturing Maintenance Technician ([phone]) as soon as possible. In the event of elopement, notify [place] State Police ([phone]). Patient is currently involuntarily at [facility]. [facility] Frontline Powerhouse Electrician Apprentice will continue seeking placement. Please contact the Sawmill Worker Manufacturing Maintenance Technician ([phone]) for any needed changes to Safety Plan. Safety plan has been provided to interdepartmental care team. Patient will be transported by [employer] at time of discharge.
--- NOTE | 2022-06-08 09:26 | CMPROGNOTE_ITS ---
- If Service Date Differs Date of service: 06/08/22 Time of Service: 09:27 Care Management Progress Note S/O: Ijeoma was changed to Involuntary status the second certification was completed overnight. He has been accepted at [facility] and the doctor to doctor and nurse to nurse reports have been given. [facility] arranged transportation for 3pm. The nursing water service supervisor has been advised of the transfer details. A: Ijeoma is a 21 year old man admitted with SI awaiting involuntary IP treatment P: Ijeoma is awaiting involuntary inpatient psychiatric treatment for SI. He is accepted to , [facility] has arranged transportation for 3pm. Covid test is pending. - Guardianship if Applicable Guardianship: Parent
--- NOTE | 2022-06-08 09:37 | PDOC.CMDIS ---
- If Service Date Differs Date of service: 06/08/22 Time of Service: 09:37 LACE Index Scoring Tool - Questions: Length of Stay (in days): 3 Acuity (Admit via E.D.?): Yes E.D. Visits: 3 - Answers: Total Score: 9 Risk of Readmission: Low Risk Care Management Discharge Reason for Hospitalization: Depression, SI Discharge Plan: [place] is discharged to [facility] for inpatient treatment. He is driven by secured transportation arranged by [facility]. Patient/Family Education Needs: Review transfer information and plan. Discuss ask me three. - Disposition Disposition: [place] [facility] via of: [employer] ([facility] transportation coordinated by [facility])
[2022-06-08 09:42] LABS: Source Nasal/Nares
--- NOTE | 2022-06-08 09:54 | PGE_ITS ---
Date of Service Date of service: 06/07/22 Time of Service: 09:54 Assessment and Plan Assessment and plan (1) Depression with suicidal ideation: Status: Acute Assessment and plan: Voluntary adm - medically cleared by ED for mental health evaluation - for increasing depression; suicidal ideation. behavioral health consult; suicidal precautions, 1:1 observation. Reports no medication, has been on Wellbutrin in the past and states that made him feel worse; he was also given Seroquel and did not like the effect of that at all. Expresses aversion to take pills due to past history of probable misuse when I was younger We just used to pop pills (2) Insomnia: Status: Acute Assessment and plan: Agrees to take HS melatonin: Melatonin 6 mg PO PRN HS Racing idea, no sleep but rested his eyes Hydroxyzine prn for anxiety (3) DVT prophylaxis: Status: Acute Assessment and plan: Not necessary - awake, alert, walking in the room (4) Discharge planning issues: Status: Acute Assessment and plan: Pleasant, cooperative[facility] Provider report given to Dr Prasad; awaiting transport. Discussed with Dr Malin Subjective Subjective Patient reports: no new complaints, tolerating a regular diet and afebrile; denies diarrhea, nausea or vomiting Interval history since last seen: Awake and conversant today - states he did sleep better last night Exam Narrative Exam Narrative: Patient is alert and orient to person and space, he did not know the exact date but knew it was the end of May No focal neurological deficit, S1, S2, no murmur, no edema, pulses are present to ext. lungs are bilaterally clear Abdomen is soft, non-tender, scaphoid, bowel sounds are present push and pull 5/5 to upper and lower ext. Objective Last Vital Signs Temp 37 C 06/08/22 08:11 Pulse 59 L 06/08/22 08:11 Resp 16 06/08/22 08:11 BP 119/74 06/08/22 08:11 Pulse Ox 99 06/08/22 08:11 Laboratory Results - last 24 hr 06/08/22 09:30 COVID-19 Source Nasal/Nares PAWSS Have you Been Recently Intoxicated or Drunk Within the Last 30 days?: Yes Have you Ever Experienced Previous Episodes of Alcohol Withdrawal?: No Have you ever Experienced Withdrawal Seizures?: No Have you ever Experienced Delirium Tremens(DT)s?: No Have you ever undergone Alcohol Rehabilitation Treatment (i.e, inpt ot ou tpatient treatment programs)?: No Have you ever Experienced Blackouts?: No Have you ever Combined Alcohol with other Downers within the last 90 days?: No Have you ever Combined Alcohol with any other Substance of Abuse during the last 90 days?: Yes Evidence of Increased Autonomic Activity (i.e. HR>120, tremor, sweating, agitation, nausea)?: No Result: 3 Time Spent with Patient Time Spent with Patient: 25-34 minutes Time was spent: preparing to see the patient(eg.review tests), ordering medications,tests, procedures, referring, communicating with other health customer care team coach, counseling the patient and care coordination
[2022-06-08 10:13] LABS: COVID-19 PCR Negative (Negative)
[2022-06-08 14:01] LABS: Chlamydia Result Negative (Negative); GC Result Negative (Negative)
== END 2022-06-08 15:09 | DRG 881 ==
LOC: ER 06-05 14:16 → MS 06-05 14:30
PROVIDERS: Nurse Practitioner Family; Physician Assistant; Admitting Provider Family Medicine; Emergency Provider Emergency Medicine; PCP Nurse Practitioner Family; Visit Provider Family Medicine
DX: F32.9 Major depressive disorder, single episode, unspecified (principal); R44.0 Auditory hallucinations; R45.851 Suicidal ideations; Z68.1 Body mass index [BMI] 19.9 or less, adult; S50.812A Abrasion of left forearm, initial encounter; F90.9 Attention-deficit hyperactivity disorder, unspecified type; Z20.822 Contact with and (suspected) exposure to COVID-19; F12.90 Cannabis use, unspecified, uncomplicated; F17.210 Nicotine dependence, cigarettes, uncomplicated; G47.00 Insomnia, unspecified; R63.4 Abnormal weight loss; T22.112A Burn of first degree of left forearm, initial encounter; X78.9XXA Intentional self-harm by unspecified sharp object, initial encounter; X76.XXXA Intentional self-harm by smoke, fire and flames, initial encounter
CPT/HCPCS: 80307; 87491; 87591; 87635; 99285; 81003; 81015; 99222; 99232; 99239

== ENCOUNTER 2022-07-08 16:12 | Emergency (ER) | payer MEDICAID, SELFPAY ==
[2022-07-08 16:14] VITALS: BP 111/75; PULSE 116; RESP 20; TEMP 36.6; O2SAT 98
--- NOTE | 2022-07-08 16:53 | W.ED.GENAD ---
Discharge Plan Disposition Patient Disposition: Home Discharge Details Clinical Impression: Housing insecurity, Major depression Primary Care Provider: Donavan Venegas ED Provider: Segun Ascencio Home Meds and New Rx's Prescriptions: No Action No Known Home Meds Discharge Instructions Instructions: Depression (ED) Additional Instructions: It is very important that you continue to follow-up with [address] and economic services to help establishment of your housing situation. If you have any change of your condition or new or worsening depression including suicidal or homicidal ideations please return to the emergency department for reassessment and reconsideration of voluntary admission to psychiatric facility. Referrals: [facility] [Outside] (Please follow through with your normal counseling services and additional resources as discussed by acute worker.) Medical Decision Making Patient presenting to the emergency department for chief complaint of family disagreement and patient being kicked out of home. He recently was admitted for suicidal ideations homicidal ideations and depression and was discharged home. He states that he had a disagreement with his father and his father sent him to the emergency department. Patient denies homicidal suicidal ideations, does state ongoing depression otherwise denies all other medical complaints. Patient cleared with smart form and physical exam is unremarkable. Father did call emergency department prior to patient arriving and saying he needed a mental health exam. I do not see any significant risk factors but to get fullness of story will contact [facility] for further screening given that he does see counseling with them and if patient is recently homeless may need additional resources and support. We will also have patient contact [address] for housing assistance. At this time I feel no necessity for labs. Spoke with mental health screener Jorgito whom stated patient did admit to him that he had some suicidal thoughts and that he had thoughts of wanting to shoot himself. He then informed the floor worker well service he was seeking voluntary admission to psychiatric services. Due to this being a completely different story from what he told us I went back in to discuss plan of care with patient. Patient is now denying that he was ever suicidal or homicidal, states that he has no intention of harming himself, and states that he was only seeking psychiatric admission to by his time for housing. When again asking patient if he would like to be admitted due to significant risk factors he is stating that now he does not want to be admitted to a psychiatric facility at this time. Due to confusion we will recontact floor worker well service to discuss plan of care. Patient did talk with acute floor worker well service from [facility] and after their discussion he is now again further denying any homicidal or suicidal ideations. Patient asked to call his father to have his father bring his belongings and states that he will stay with a friend until his housing situation is arranged. After discussion of diagnosis and plan of care patient has no further needs, questions, or concerns and states clear understanding to return to the emergency department for any worsening symptoms. This documentation was generated using iLumenation system, please disregard any oddities of phrase or misspellings. Medical Records Medical records reviewed: Yes I reviewed the patient's medical records. Medical records narrative: Reviewed previous emergency department visit with admission to psychiatric facility. HPI General Mode of arrival: ambulatory. Date/Time Provider Initiated Documentation: 07/08/22 16:16. Limitations to Documentation: no limitations. Information obtained by: patient, family, RN notes reviewed and old records reviewed. History of Present Illness 21 year old M presents to the emergency department with the chief complaint of Depression and kicked out of home, Patient started experiencing this hour(s) (2) Patient notes no other symptoms.. Patient did receive the following treatments prior to arrival, none Related Data Home Medications Medication Instructions Recorded Confirmed Unknown [No Known Home Meds] 01/04/22 07/08/22 Allergies Allergy/AdvReac Type Severity Reaction Status Date / Time amoxicillin Allergy rash Verified 07/08/22 16:52 General Stated Complaint: PsychEval RIA: 2 Review of Systems All systems reviewed & are unremarkable except as noted in HPI and below Psychiatric Psychiatric: Denies anxiety, Reports depression, Denies visual hallucinations, Denies hallucinations, Denies homicidal ideation and Denies suicidal ideation [facility] All Active Problems (Updated 07/08/22 @ 19:10 by Segun Ascencio NP) Housing insecurity (Acute) Major depression (Chronic) ADHD (attention deficit hyperactivity disorder) (Acute) Auditory hallucination (Acute) Homicidal ideation (Acute) Insomnia (Acute) Depression with suicidal ideation (Acute) Weight loss (Acute) ? depression related - labs History of penicillin allergy (Acute 01/15/12) Family History Mother No problems noted. Father Depression Grandparent Heart disease Hyperlipidemia Mental disorder Sister No problems noted. Brother No problems noted. Social History Smoking/Tobacco Use Status: Current every day Tobacco Type: cigarettes, pipe, cigars, e-cigarettes and smokeless tobacco Smokeless tobacco user: chewing tobacco Quit status: considering quitting Second Hand Exposure: Yes Smoking risk assessment performed?: Yes Alcohol Intake: current Alcohol Intake frequency: a few times a week Drug use: Daily Substance use type: marijuana Caregiver/Support person: No Household members: family Housing: house Communication Needs: Corrective Lenses Do you need help understanding health information?: Never Pets and animals: Yes Pets and animals: cat(s) Sexually active: Yes Do you think of yourself as: straight/heterosexual Current gender identity: male How often do you talk on the phone with friends or family?: once per week How often do you get together with friends or relatives?: twice per week Do you belong to any clubs or organized social groups?: no Panel score (0-1 are the most socially isolated patients): 1 What type of physical activity do you participate in: walking, weight lifting and running Duration: 15-30 minutes/day Frequency: 3-4 times per week Edna/Anabaptism: Athiest Seatbelt use: always Helmet use: Yes Helmet use: always Drive intox or ride w/intox construction driver: No Do you feel safe at home: Yes Do you feel safe in your relationship?: Yes Exam Const General: cooperative Orientation: alert, awake and oriented x3 Limitations: mental status not altered HENMT Head: normal to inspection, normocephalic and atraumatic Ears: hearing grossly normal bilaterally Mouth: moist mucous membranes Eyes General: appearance normal, both eyes and all related structures Pupils: PERRL EOM: EOM intact bilaterally Neck Thyroid: thyroid normal Resp Effort & Inspection: normal respiratory effort, able to speak in complete sentences and no respiratory distress Auscultation: clear to auscultation bilaterally Cardio Rate: regular rate and not tachycardic Rhythm: regular rhythm Heart Sounds: S1 normal, S2 normal, no click, no gallops, no murmurs and no rubs Neuro General: patient alert, patient awake, patient oriented x3, gait normal, moves all extremities and no focal motor deficits Cognition: normal cognition Speech: speech normal Psych Mental Status: mental status grossly normal Speech and Movement: speech and movement normal and speech clear Mood: congruent mood Affect: indifferent and blunted Attitude: cooperative Thought Process: normal Thought Content: normal and suicidality Course Vital Signs Vital signs: Vital Signs Temperature 36.6 C 07/08/22 16:14 Pulse 116 H 07/08/22 16:14 Respiratory Rate 20 07/08/22 16:14 Blood Pressure 111/75 07/08/22 16:14 Pulse Oximetry 98 07/08/22 16:14 Temperature 36.6 C 07/08/22 16:14 Pulse 116 H 07/08/22 16:14 Respiratory Rate 20 07/08/22 16:14 Respiratory Effort Normal, Non-Labored 07/08/22 16:17 Blood Pressure 111/75 07/08/22 16:14 Blood Pressure Position Sitting 07/08/22 16:14 Pulse Oximetry 98 07/08/22 16:14 Oxygen Delivery Method Room Air 07/08/22 16:14 Oxygen Flow Rate 0 07/08/22 16:14 PAWSS Have you Been Recently Intoxicated or Drunk Within the Last 30 days?: No Have you Ever Experienced Previous Episodes of Alcohol Withdrawal?: No Have you ever Experienced Withdrawal Seizures?: No Have you ever Experienced Delirium Tremens(DT)s?: No Have you ever undergone Alcohol Rehabilitation Treatment (i.e, inpt ot outpatient treatment programs)?: No Have you ever Experienced Blackouts?: No Have you ever Combined Alcohol with other Downers within the last 90 days?: No Have you ever Combined Alcohol with any other Substance of Abuse during the last 90 days?: No Positive Blood Alcohol level on Presentation? [PCS.BAL]: No Evidence of Increased Autonomic Activity (i.e. HR>120, tremor, sweating, agitation, nausea)?: No Result: 0
--- NOTE | 2022-07-08 17:20 | PDOC.MHCN ---
Date of service: 07/08/22 Time of Service: 17:20 PHQ-9 Over the last 2 weeks, how often have you been bothered by any of the following problems? 1. Little interest or pleasure in doing things: nearly every day 2. Feeling down, depressed, or hopeless: nearly every day 3. Trouble falling or staying asleep, or sleeping too much: nearly every day 4. Feeling tired or having little energy: nearly every day 5. Poor appetite or overeating: more than half the days 6. Feeling bad about yourself - or that you are a failure or have let yourself and your family down: several days 7. Trouble concentrating on things, such as reading the newspaper or watching television: not at all 8. Moving or speaking so slowly that other people could have noticed? - Or the opposite - being so fidgety or restless that you have been moving around a lot more than usual: nearly every day 9. Thoughts that you would be better off or of hurting yourself in some way: not at all Total score: 18 If you checked off any problems, how difficult have these problems made it for you to do your work, take care of things at home, or get along with other people?: extremely difficult PHQ-9 Results: Positive Source: Developed by Drs. Armond Will, Moira Jay, Lito Armas and colleagues, with an educational kayy from [employer]. Suicide Severity Rate CSSRS Have you wished you were or wished you could go to sleep and not wake up?: No Have you actually had any thoughts of killing yourself?: Yes CSSRS2 Have you been thinking about how you might do this?: Yes Have you had these thoughts and had some intention of acting on them?: Yes Have you started to work out or worked out the details of how to kill yourself? Do you intend to carry out this plan?: No CSSRS3 Have you ever done anything, started to do anything or prepared to do anything to end your life?: Yes CSSRS4 Was this within the past three months?: Yes Screening Score Total Score: 6 Screening: Positive Mental Health Emergency Note Release [facility] release signed:: No Reason for Visit In the last 2 weeks has the pt presented for ES prior to today?: No Client Information Client is: New Well Housed: No,status: Homeless Stable housing Non Suicidal Self Injury Current: No History: yes, Unknown to this underwriter mortgage loan. Safety Risk/Harm to Self or Others Current Ideation to Harm Self or Others: Yes to self. Intent: yes, has intent. Plan: yes,has a plan. Risk: Does risk to harm exist?: yes. Access to means: No. Risk: Moderate Risk Duty to warn indicated: No Asssessment/Mental Status Appearance: Disheveled Attitude: Passive Behavior: Unremarkable Speech: Soft Affect: Flat Mood: Sad, Stressed and Depressed Thought process: Unremarkable Hallucinations: No evidence Delusions: No evidence Attention: Unremarkable Perception: Not impaired Orientation: Fully orientated Memory: Intact Insight: Poor Judgement: Poor Neurovegetative Symptoms Sleep: Decrease Appetitie: Decrease Interests: Decrease Energy: Decrease Substance Use: Do you use nicotine?: No Have you used substances in the last 7 days?: No Additional Issues: Assaultive/Threatening Behavior: No Medical Concerns: No Client engaged in active self harm w/weapon: No Threatening to run away: No Child reported abuse/neglect: No Voluntarily presenting for services: Yes Domestic violence is a concern: No Extreme Psychosis or extreme behavior is present: No Impression On 07/08/22 Roger voluntarily presented to the ED seeking support. This client maintained a flat affect throughout the entire assessment and could be seen slowly becoming tearful periodically. This client reported poor sleep, often laying awake restless and not being able to leave bed most of the day. This client also reported feeling depressed and lost in life. Client was unable to make strong connections to life, all while minimizing his suicidal ideation. Roger's thought process and insight is somewhat disordered as at the beginning of the assessment he stated he was not suicidal but then later stated his plan is to shoot himself. When asked if he has access to a firearm, Roger stated he doesn't need a weapon. Initially, this client stated he was not interested in returning to treatment, but as the assessment continued the client agreed he may benefit from a higher level of care. Due to previous life stressors, hx and the more recent housing insecurity this client is facing, as well as his presentation today, Roger is at moderate risk of ending his life by suicide; this underwriter mortgage loan is inclined to recommend IP treatment, with a possibility of exploring a crisis bed referral. Resources Re[facility]ces reviewed and given:: Crisis Bed and [facility] Plan/Disposition Recommended Disposition: Crisis bed, No and Hospitalization No. Plan: Client is agreeable to seeking voluntary IP treatment at this time. Person reported agreement to plan: Yes Reports/communication Outcome discussed with: Other (Pt's provider unavailable after screening was completed, requested provider call back once free to discuss disposition planning.)
[2022-07-08 19:53] VITALS: BP 124/80; PULSE 83; RESP 16; TEMP 36.8; O2SAT 95
== END 2022-07-08 19:56 | disposition home or self-care (01) ==
PROVIDERS: Emergency Provider Nurse Practitioner Family; PCP Nurse Practitioner Family
DX: F32.9 Major depressive disorder, single episode, unspecified (principal); Z59.89 Other problems related to housing and economic circumstances
CPT/HCPCS: 99283

== ENCOUNTER → 2023-10-27 02:23 | Outpatient (CLI) | payer MEDICAID, SELFPAY ==
--- OUTSIDE RECORDS SUMMARY | 2023-10-27 02:26 | XMS_ITS | Continuity of Care Document ---
Author Name Unknown Organization Psych Address Unknown Care Team Providers Care Clinical Care Coordinator Name Role Phone Unknown PCP, Unknown PCP Primary Care Physician Unavailable Encounter Date(s): 08/28/21 - 09/03/21 [address] [place], [place] [address] - Encounter Diagnosis Cannabis use disorder, severe, dependence(Discharge Diagnosis) - 08/29/21 Nicotine use disorder(Discharge Diagnosis) - 08/29/21 PTSD (post-traumatic stress disorder)(Discharge Diagnosis) - 08/30/21 Mood disorder(Discharge Diagnosis) - 08/30/21 Hypotension(Discharge Diagnosis) - 09/01/21 Discharge Disposition: Home or Self Care Attending Physician: YANET MAYORGA MD Admitting Physician: YANET MAYORGA MD Allergies, Adverse Reactions, Alerts Substance Reaction Severity Status amoxicillin Rash Mild Active Assessment and Plan Extracted from: Title:Physician Progress Note - Psychiatric Auth or:YANET MAYORGA MD Date:09/02/21 Patient is stabilizing and r egaining his ability to be safe to himself. He benefits from inpatient level of care. 1.?? Mood disorder ?? F39 2.?? PTSD (post-traumatic stress disorder) ?? F43.10 3.?? Cannabis use disorder, severe, dependence ?? F12.20 4.?? Nicotine use disorder ?? F17.200 5.?? Hypotension ?? I95.9 Inpatient Ativan, 1 mg, 1 tab(s), Oral, q8hr, PRN Commit lozenge, 2 mg, 1 lozenge(s), Buccal, q1hr, PRN melatonin, 3 mg, 1 tab(s), Oral, qHS, PRN Milk of Magnesia, 30 mL, Oral, Daily, PRN Motrin, 600 mg, 1 tab(s), Oral, q6hr, PRN Mylanta, 30 mL, Oral, QID, PRN Nicoderm 14 mg/24hr patch, 1 patch(es), Transdermal, Daily SEROquel, 25 mg, 1 tab(s), Oral, q8hr, PRN SEROquel, 50 mg, 2 tab(s), Oral, qHS Tylenol, 650 mg, 2 tab(s), Oral, q4hr, PRN Vistaril, 50 mg, 1 cap(s), Oral, q4hr, PRN Home No active home medications I certify that inpatient psychiatric hospital admission is medically necessary for treatment which could reasonably be expected to improve the patient's condition: y In need of ILOC due to: SI, depression Is the patient involuntary? no Treatment Plan Discussed and Reviewed with Patient:y Receiving active treatment through medication, individual, group, and milieu therapy Extracted from: Title:Physician Progress Note - Psychiatric Auth or:YANET MAYORGA MD Date:09/01/21 Patient continues to feel de pressed and he is a risk to himself as demonstrated by self-harming behavior of punching the wall. He admitted not being able to control his negative thoughts and behavior and he does not want to engage in group therapy. He takes medication with some benefit. 1.?? Mood disorder ?? F39 ??continue seroquel 50mg qHS 2.?? PTSD (post-traumatic stress disorder) ?? F43.10 3.?? Cannabis use disorder, severe, dependence ?? F12.20 4.?? Nicotine use disorder ?? F17.200 Inpatient Ativan, 1 mg, 1 tab(s), Oral, q8hr, PRN Commit lozenge, 2 mg, 1 lozenge(s), Buccal, q1hr, PRN melatonin, 3 mg, 1 tab(s), Oral, qHS, PRN Milk of Magnesia, 30 mL, Oral, Daily, PRN Motrin, 600 mg, 1 tab(s), Oral, q6hr, PRN Mylanta, 30 mL, Oral, QID, PRN Nicoderm 14 mg/24hr patch, 1 patch(es), Transdermal, Daily SEROquel, 25 mg, 1 tab(s), Oral, q8hr, PRN SEROquel, 50 mg, 2 tab(s), Oral, qHS Tylenol, 650 mg, 2 tab(s), Oral, q4hr, PRN Vistaril, 50 mg, 1 cap(s), Oral, q4hr, PRN Home No active home medications I certify that inpatient psychiatric hospital admission is medically necessary for treatment which could reasonably be expected to improve the patient's condition: y In need of ILOC due to: SI, depression Is the patient involuntary? no Treatment Plan Discussed and Reviewed with Patient:y Receiving active treatment through medication, individual, group, and milieu therapy Extracted from: Title:Physician Progress Note - Psychiatric Auth or:YANET MAYORGA MD Date:08/31/21 Patient discussed his childh ood trauma that are causing his depressive mood and suicidal ideations. He had an episode of superficial self harm in the hospital but said he will be safe in the future and let staff know if he feels unsafe. He requires encouragements to engage in group therapy. Patient needs individual therapy. He continues to??meet criteria??and??benefits from inpatient level of care. 1.?? Mood disorder ?? F39 2.?? PTSD (post-traumatic stress disorder) ?? F43.10 3.?? Cannabis use disorder, severe, dependence ?? F12.20 4.?? Nicotine use disorder ?? F17.200 Orders: QUEtiapine, 50 mg = 2 tab(s), Tab, Oral, qHS, Start date 08/30/21 21:00:00 EDT, Routine Nursing Communication Nursing Communication Inpatient Ativan, 1 mg, 1 tab(s), Oral, q8hr, PRN Commit lozenge, 2 mg, 1 lozenge(s), Buccal, q1hr, PRN melatonin, 3 mg, 1 tab(s), Oral, qHS, PRN Milk of Magnesia, 30 mL, Oral, Daily, PRN Motrin, 600 mg, 1 tab(s), Oral, q6hr, PRN Mylanta, 30 mL, Oral, QID, PRN Nicoderm 14 mg/24hr patch, 1 patch(es), Transdermal, Daily SEROquel, 25 mg, 1 tab(s), Oral, q8hr, PRN SEROquel, 50 mg, 2 tab(s), Oral, qHS Tylenol, 650 mg, 2 tab(s), Oral, q4hr, PRN Vistaril, 50 mg, 1 cap(s), Oral, q4hr, PRN Home No active home medications I certify that inpatient psychiatric hospital admission is medically necessary for treatment which could reasonably be expected to improve the patient's condition: y In need of ILOC due to: SI, depression Is the patient involuntary? no Treatment Plan Discussed and Reviewed with Patient:y Receiving active treatment through medication, individual, group, and milieu therapy Addendum by YANET MAYORGA MD on August 31, 2021 2:50:26 PM EDT more than 45??minutes were spent for patient treatment today. More than half of the time was spent in counseling and coordination of care. Counseling with the patient was supportive and psychoeducational in nature. Coordination of care with nursing was in regard to progress over the last 24 hours. Coordination of care with social work was in regard to discharge planning. Discussed with patient's father by phone. ?? Extracted from: Title:Physician Progress Note - Psychiatric Auth or:YANET MAYORGA MD Date:08/30/21 Patient continues to present with severe depression and anxiety that limit his ability to function and maintain his safety in the community. He admitted still having intermittent passive suicidal ideations. He continues to meet criteria for inpatient level of care for safety and stabilization. 1.?? Mood disorder ?? F39 ??increase seroquel to 50mg daily 2.?? PTSD (post-traumatic stress disorder) ?? F43.10 ??encourage psychotherapy 3.?? Cannabis use disorder, severe, dependence ?? F12.20 ??provide psychoeducation and TN 4.?? Nicotine use disorder ?? F17.200 ??has nicotine patches and lozenges Orders: QUEtiapine, 50 mg = 2 tab(s), Tab, Oral, qHS, Start date 08/30/21 21:00:00 EDT, Routine Dietary Supplements Nursing Communication Inpatient Ativan, 1 mg, 1 tab(s), Oral, q8hr, PRN Commit lozenge, 2 mg, 1 lozenge(s), Buccal, q1hr, PRN melatonin, 3 mg, 1 tab(s), Oral, qHS, PRN Milk of Magnesia, 30 mL, Oral, Daily, PRN Motrin, 600 mg, 1 tab(s), Oral, q6hr, PRN Mylanta, 30 mL, Oral, QID, PRN Nicoderm 14 mg/24hr patch, 1 patch(es), Transdermal, Daily SEROquel, 25 mg, 1 tab(s), Oral, q8hr, PRN SEROquel, 50 mg, 2 tab(s), Oral, qHS Tylenol, 650 mg, 2 tab(s), Oral, q4hr, PRN Vistaril, 50 mg, 1 cap(s), Oral, q4hr, PRN Home No active home medications ?? I certify that inpatient psychiatric hospital admission is medically necessary for treatment which could reasonably be expected to improve the patient's condition: y In need of ILOC due to: SI, depression Is the patient involuntary? no ?? Treatment Plan Discussed and Reviewed with Patient:y Receiving active treatment through medication, individual, group, and milieu therapy Extracted from: Title:History & Physical - Psychiatric Author:CARLOS EDUARDO MAYORGA MD Date:08/29/21 Reason for Admission Suicidal ideations, depression Substance Abuse History Cannabis and nicotine use disorder Mental Status Exam General Appearance:??poor eye contact, engages??minimally??in interview with psychiatrist, guarded Muscle Strength and Tone:??No abnormal movements, no tremors Gait:??Not seen, sitting on his bed Mood and Affect:??Mood struggling, anxious, affect anxious Speech:??slow rate, low volume, monotone Thought Process:??Limited, concrete, guarded, paucity of thoughts Associations:??limited Thought Content:??Denied SI in the hospital, admitted recent SI with plan, no HI, safe in the hospital,??no apparent delusion, paranoia or AVH Orientation:??x4 Attention Span and Concentration:??Fair for interview Recent and Remote Memory:??Fair for interview Language:??Normal Fund of Knowledge:??Average Judgment and Insight:??Fair ? Assessment/Plan This is a 20yo man who presents with an episode of depression with suicidal ideations, auditory hallucinations and possible associated manic symptoms in the context of treatment with wellbutrin. Patient also uses cannabis and has a family history of bipolar disorder, which suggest that patient's depressive episode is part of bipolar disorder and needs to be treated with a mood stabilizer. Patient meets criteria for inpatient level of care and is admitted voluntarily. He will benefit from hospitalization for safety and stabilization. Diagnosis 1.?? Bipolar disorder, current episode depressed, severe, with psychotic features ?? F31.5 ??start seroquel 25mg qHS for mood instability/depression use seroquel 25mg prn for agitation use vistaril or ativan prn for anxiety use melatonin prn for insomnia ? 2.?? Cannabis use disorder, severe, dependence ?? F12.20 ??Psychoeducation and TN offered 3.?? Nicotine use disorder ?? F17.200 ??on replacement therapy Orders: acetaminophen, 650 mg = 2 tab(s), Tab, Oral, q4hr PRN pain/fever, Start date 08/28/21 17:53:00 EDT, Routine Al hydroxide/Mg hydroxide/simethicone, 30 mL, Susp, Start date 08/28/21 17:50:00 EDT, Oral, QID PRN dyspepsia, Routine, 08/28/21 17:50:00 EDT hydrOXYzine, 50 mg = 1 cap(s), Cap, Oral, q4hr PRN anxiety, Start date 08/28/21 17:53:00 EDT, Routine ibuprofen, 600 mg = 1 tab(s), Tab, Oral, q6hr PRN pain, Start date 08/28/21 17:53:00 EDT, Routine LORazepam, 1 mg = 1 tab(s), Tab, Oral, q8hr PRN anxiety, Start date 08/28/21 17:54:00 EDT, Routine magnesium hydroxide, 30 mL, Susp, Start date 08/28/21 17:50:00 EDT, Oral, Daily PRN constipation, Routine, 08/28/21 17:50:00 EDT melatonin, 3 mg = 1 tab(s), Tab, Oral, qHS PRN insomnia, Start date 08/28/21 17:53:00 EDT, Routine nicotine, 2 mg = 1 lozenge(s), Lozenge, Buccal, q1hr PRN nicotine cravings/withdrawal, Start date 08/28/21 17:53:00 EDT, Routine QUEtiapine, 25 mg = 1 tab(s), Tab, Oral, q8hr PRN agitation, Start date 08/29/21 14:57:00 EDT, Routine QUEtiapine, 25 mg = 1 tab(s), Tab, Oral, qHS, Start date 08/29/21 21:00:00 EDT, Routine Abdominal Circumference Admit to Psychiatric Unit Blood Pressure Diet Height/Length Hospital Based Inpatient Psychiatric Services Quality Measures Resuscitation Status Safety Checks Substance Abuse Quality Measures Tobacco Cessation Quality Measures Up ad Grisel Weight Plan The patient was admitted on a voluntary basis and placed on 15 minute checks for safety and stabilization.??Patient will be evaluated by nursing, social work and occupational therapy.??Patient will be enrolled in individual, group and milieu therapies. We will contact collaterals and outpatient providers for continuity of care and will work with patient on discharge planning. Functional Status 09/03/21 ADLs Independent Medications SEROquel 25 mg oral tablet 50 mg = 2 tab(s), Oral, qHS, # 60 tab(s), 0 Refill(s), Pharmacy: [id number] Start Date: 09/03/21 Stop Date: 10/03/21 Status: Ordered Mental Status 09/03/21 Level of Consciousness Alert Orientation Assessment Identifies self Problem List Condition Effective Dates Status Health Status Inform ant Cannabis use disorder, sever e, dependence(Confirmed) Active Mood disorder(Confirmed) Active Nicotine use disorder(Confirmed) Active PTSD (post-traumatic stress disorder)(Confirmed) Active Vital Signs Most recent to oldest [Reference Range]: 1 2 3 Temperature Temporal Artery [36.3-37.8 DegC] 36.8 DegC (09/03/21 7:36 AM) 37 DegC (09/02/21 8:50 AM) 37.1 DegC (09/01/21 7:43 AM) Apical Heart Rate [60-100 bpm] 70 bpm (08/31/21 3:44 PM) 57 bpm *LOW* (08/31/21 7:43 AM) Peripheral Pulse Rate [60-100 bpm] 56 bpm *LOW* (09/03/21 7:36 AM) 54 bpm *LOW* (09/02/21 8:50 AM) 55 bpm *LOW* (09/01/21 7:43 AM) Respiratory Rate [14-20 br/min] 18 br/min (08/29/21 5:30 PM) 18 br/min (08/29/21 1:12 PM) 18 br/min (08/28/21 9:36 PM) Blood Pressure [90-140/60-90 mmHg] 117/71mmHg (09/03/21 7:36 AM) 103/56mmHg (09/02/21 8:50 AM) 100/50mmHg (09/01/21 7:43 AM) Mean Arterial Pressure, Cuff 67 mmHg (08/31/21 3:44 PM) Blood Pressure 103/64mmHg (08/28/21 9:36 PM) Mean Arterial Presure, Manual 77 mmHg (08/28/21 9:36 PM) Social History Social History Type Response Smoking Status Current every day sm renate; Type: Cigarettes; Tobacco use per day: 30; entered on: 08/28/21 Sex Male Hospital Discharge Instructions Patient Education 09/03/2021 13:10:28 Cannabis Use Disorder Cannabis Use Disorder Cannabis use disorder is when using marijuana disrupts a person's daily life or causes health problems. This condition can be dangerous. The health problems this condition can cause include: ??? Long-lasting problems with thinking and learning. These can be permanent in young people. ??? Severe anxiety. ??? Paranoia. ??? Hallucinations. ??? Dangerously high blood pressure and heart rate. ??? Schizophrenia. ??? Breathing problems. ??? Problems with child development during and after . People with this condition are also more likely to use other drugs. What are the causes? This condition is caused by using marijuana too much over time. It is not caused by using it only once in a while. Many people with this condition use marijuana because it gives them a feeling of extreme pleasure or relaxation. What increases the risk? This condition is more likely to develop in: ??? Men. ??? People with a family history of cannabis use disorder. ??? People with mental health issues such as depression or post-traumatic stress disorder. What are the signs or symptoms? Symptoms of this condition include: ??? Using greater amounts of marijuana than you want to, or using marijuana for longer than you want to. ??? Craving marijuana. ??? Spending a lot of time getting marijuana and using it or recovering from its effects. ??? Having problems at work, at school, at home, or in relationships because of marijuana use. ??? Giving up or cutting down on important life activities because of marijuana use. ??? Using marijuana at times when it is dangerous, such as while you are driving a car. ??? Needing more and more marijuana to get the same effect you want from the marijuana (building upa tolerance). ??? Physical problems, such as: ??? A long-lasting cough. ??? Bronchitis. ??? Emphysema. ??? Throat and lung cancer. ??? Mental problems, such as: ??? Psychosis. ??? Anxiety. ??? Trouble sleeping. ??? Having symptoms of withdrawal when you stop using marijuana. Symptom of withdrawal include: ??? Irritability or anger. ??? Anxiety or restlessness. ??? Trouble sleeping. ??? Loss of appetite or weight loss. ??? Aches and pains. ??? Shakiness, sweating, or chills. How is this diagnosed? This condition is diagnosed with an assessment. During the assessment, your health care provider will ask about your marijuana use and about how it affects your life. You will be diagnosed with the condition if you have had at least two symptoms of this condition within a 12-month period. How severe the condition is depends on how many symptoms you have. ??? If you have two to three symptoms, your condition is mild. ??? If you have four to five symptoms, your condition is moderate. ??? If you have six or more symptoms, your condition is severe. Your health care provider may perform a physical exam or do lab tests to see if you have physical problems resulting from marijuana use. Your health care provider may also screen for drug use and refer you to a mental health professional for evaluation. How is this treated? Treatment for this condition is usually provided by mental health professionals with training in substance use disorders. Your treatment may involve: ??? Counseling. This treatment is also called talk therapy. It is provided by substance use treatment counselors. A counselor can address the reasons you use marijuana and suggest ways to keep you from using it again. The goals of talk therapy are to: ??? Find healthy activities to replace using marijuana. ??? Identify and avoid the things that trigger your marijuana use. ??? Help you learn how to handle cravings. ??? Support groups. Support groups are led by people who have quit using marijuana. They provide emotional support, advice, and guidance. ??? Medicine. Medicine is used to treat mental health issues that trigger marijuana use or that result from it. Follow these instructions at home: ??? Take [id number] and prescription medicines only as told by your health care provider. ??? Check with your health care provider before starting any new medicines. ??? Keep all follow-up visits as told by your health care provider. This is important. ??? Work with your counselor or group to develop tools to keep you from using marijuana again (relapsing). ??? Make healthy lifestyle choices, such as: ??? Eating a healthy diet. ??? Getting enough exercise. ??? Improving your stress-management skills. ??? Learn daily living skills and work skills. Where to find more information ??? National [place] on Drug Abuse: www.drugabuse.gov ??? Substance Abuse and Mental Health Services Administration: www.samhsa.gov Contact a health care provider if: ??? You are not able to take your medicines as told. ??? Your symptoms get worse. Get help right away if: ??? You have serious thoughts about hurting yourself or others. If you ever feel like you may hurt yourself or others, or have thoughts about taking your own life,get help right away. You can go to your nearest emergency department or call: ??? Your local emergency services (911 in the [place] ??? A suicide crisis helpline, such as the National Suicide Prevention Lifeline at . This is open 24 hours a day. This information is not intended to replace advice given to you by your health care provider. Make sure you discuss any questions you have with your health care provider. Document Revised: 04/10/2018 Document Reviewed: 01/24/2017 Elsevier Patient Education ?? 2020 [employer] Discharge Summary * Chiquita Vallecillo APRN: PERFORM Event Display: Discharge Summary Authored Date: [id number] Discharge Summary Reason for Hospitalization depression/SI Discharge Diagnoses 1.?? Mood disorder ?? F39 ? 2.?? PTSD (post-traumatic stress disorder) ?? F43.10 ? 3.?? Cannabis use disorder, severe, dependence ?? F12.20 ? 4.?? Nicotine use disorder ?? F17.200 ? 5.?? Hypotension ?? I95.9 ?? 6. Personality disorder with cluster B traits Discharge Medication List Home Medications (1) Active SEROquel 25 mg oral tablet??50 mg = 2 tab(s), Oral, qHS Condition at Discharge improved. Patient denied SI or psychosis. He requested discharge Prognosis favorabl Physician Discharge Instructions Discharge Patient Diet: Regular Depart Patient Activity Level Restrict: As Tolerated Follow Up [facility] Therapist 09/04 or 09/05 at 5pm patient will call to verify date. [phone] Discharge Disposition patient returned home with parents Hospital Course according to Dr. Mayorga's H&P note on admission: The patient is a 20yo man who is??transferred from [facility] for admission??to the psychiatric unit due to suicidal ideations and depression. Patient presented to the [facility] ED twice with suicidal ideations. He was admitted voluntarily to [facility] psychiatric unit. ?? Patient was seen and examined through [facility] telehealth visit with vp digital marketing social media and crm present and psychiatrist working from private office in the context of Covid-19 pandemic. Patient gave verbal consentto telehealth. EMR reviewed. ?? Patient explained that he has been feeling depressed for a long time since 8 years ago. He admitted that??something happened but did not want to talk about it.??He appears sad and anxious, sitting on his bed with his knees up his chest, having difficulty telling his story or answering questions. He would often stay silent. He has decreased appetite and lost weight lately. He said he has horrible sleep and he feels very anxious and worry about a lot of things. He said he has racing thoughts. He admitted hearing voices.??He admitted he has been feeling suicidal lately. He denied homicidal ideations and does not have access to guns. He is safe to himself and others in the hospital. ?? Patient admitted using cannabis since 7 years ago. He also smokes cigarettes. He denied using alcohol or other drugs. ?? Per [facility] NURSE, patient came to the ED the first time on 08/18 for suicidal ideations with plan??to hanghimself. He was seen by the psychiatrist, put on involuntary hold, and started on wellbutrin 150mg daily.??Patient took the medication for 4 days and stabilized, so he was discharged home. Then, patient came back to the ED appearing manic, with lack of sleep and commanding auditory hallucinations te lling him to hurt himself. Patient agreed to be admitted voluntarily to [facility] psychiatric unit. His parents are supportive. ?? Psychiatrist attempted to call patient's parents, but they did not answer the call. Patient signed ADELAIDA for his parents. ?? Patient remained isolative and guarded for most of hospitalization. He was prescribed Seroquel withpositive benefit. He had some hypotension but was asymptomatic. He engaged in some self harm behaviors that did not require medical assistance. He discussed trauma history and agreed to continue out p atient therapy. ?? On day of discharge patient requested discharge and denied suicidal ideation. He was reluctant to engage in meaningful discussion with me. He appeared irritated but refused to discuss this with anyone on treatment team. His father was contacted via phone and agreed to take patient home. Father did not have any safety concerns. Patient agreed to follow up with therapist as scheduled. He is unsure if he will continue Seroquel but did report positive response. He denied A/V hallucinations and doesnot appear preoccupied with internal stimuli. He has decision making capabilities. He does not meetcriteria for involuntary hospitalization. He was encouraged to cut back on marijuana use and informed of dangers of continue use as this could contribute to mental health decline. ? Electronically Signed By: Chiquita Vallecillo APRN Date and Time Signed: 09/03/21 14:02 EDT Physician Progress Note * YANET MAYORGA MD: PERFORM Event Display: Physician Progress Note Authored Date: [id number] Progress Note Subjective/24 Hour Events EMR reviewed. Discussed with nurses. Patient was seen in his room. He continues to appear depressedand angry, but he said he was feeling?? better. He denied suicidal ideations and denied self-harming behavior for the past 24h. He said he would be safe at home. He does not go to group therapy but he is motivated to engage in outpatient??individual therapy. He takes seroquel and denied side effects, saying it helps him sleep and decreases anxiety. We discussed risks, benefits and side effects ofseroquel. He discussed safe discharge plan. Review of Systems Slept 8.25h, eat meals, does ADLs, no pain reported. Objective Vitals & Measurements T:??37?C ??(Temporal Artery)?? HR:??54??(Peripheral)?? BP:??103/56?? SpO2:??100%?? Mental Status Examination General Appearance:??good eye contact, engages??minimally??in interview with psychiatrist, guarded Muscle Strength and Tone:??No abnormal movements, no tremors Gait:??WNL Mood and Affect:??Mood better, affect angry Speech:??slow rate, low volume, monotone Thought Process:??Limited, concrete Associations:??normal Thought Content:??no SI, no HI, safe in the hospital,??no apparent delusion, paranoia or AVH Orientation:??x4 Attention Span and Concentration:??Fair for interview Recent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
--- NOTE | 2023-10-27 12:44 | DI.RAD_ITS ---
Exam(s) XR LUMBAR SPINE COMPLETE EXAM: XR LUMBAR SPINE COMPLETE CLINICAL HISTORY: Low back pain with radiating pain into right leg.m54.50. TECHNIQUE: 2D digital imaging was performed. Five views. COMPARISON: No exams were available for comparison FINDINGS: BONES: No fracture or destructive lesion. Vertebral body heights are maintained. No facet hypertroph y identified. The sacrum is mainly obscured by overlying stool and bowel gas on the AP view. DISKS: Intervertebral disc spaces are maintained. ALIGNMENT: Lumbar spinal alignment is within normal limits. SOFT TISSUE: Normal. IMPRESSION: Unremarkable radiographs of the lumbar spine. DATA REPOSITORY: RADIATION DOSE DELIVERED:
== END ==
PROVIDERS: PCP Nurse Practitioner Family; Visit Provider Nurse Practitioner Family
DX: M54.50 Low back pain, unspecified (principal)
CPT/HCPCS: 72110

== ENCOUNTER 2024-07-19 22:54 | Emergency (ER) | payer MEDICAID, SELFPAY ==
[2024-07-19 23:03] VITALS: BP 127/85; PULSE 72; RESP 16; TEMP 37.2; O2SAT 97
--- NOTE | 2024-07-20 00:04 | ED.GENADUL_ITS ---
Discharge Plan Discharge Details Chief Complaint: PsychEval Clinical Impression: Psychosis Primary Care Provider: Donavan Venegsa ED Provider: Erica Wilde Home Meds and New Rx's Prescriptions: No Action triamcinolone acetonide 0.1 % cream 1 applic topical BID Qty: 30 1RF HPI General Mode of arrival: ambulatory . Date/Time Provider Initiated Documentation: 07/19/24 23:08 . Limitations to Documentation: other (pt minimally participatory with interview) . Information obtained by: patient and old records reviewed (EE warrant) . HPI Narrative: 23yo M presenting on warrant for EE. Majority of history from record review. From application for warrant for emergency examination filed by Elva Wren: Client has posted multiple images, including some self-images, to friends showing threatening behavior, bleeding from face and mouth. Client has contacted several people in attempts to find personal information of individuals that Client is not permitted to contact. With those messages, Client included images and audio recording of a song called estefani [employer] em. Client is making delusional and tangential comments in the posts to friends that indicate alarming defect in thought process and content. Client is persistent and non- conversational in demands and delusional commentary, such as 'I've developed a mutalism relationship with a nuisance pest, fungus gnats' that clean his teeth while both sleeping and awake....From reliable source Judah Zepeda: Client made multiple attempts via social media apps to phillips specific information to continue cyberstalking/bullying an ex-girlfriend, including attempts to make unlawful contact with those persons. Client's posts including threats, named individuals, an accompanied image of the song, along with the audio clip of the song 'estefani kill em' to illustrate the threat. From reliable source Piero Duran: Client sent messages requesting contact information for specific individuals the client is not permitted to contact. Roger reports client has history of mental illness, is noncompliant with medications or counseling (currently not receiving any of these supports). Roger reports Client is acting paranoid, cutting arms again. Roger reports that when he asked Client this morning how he was doing, Client responded with the homicidal and/or suicidal threat 'making my way towards a firearm'. Roger reports client has a history of suicidal and homicidal acts, including access to firearms at home at this time. From reliable source Ally Enrique: Client called [facility] today, made unintelligible statements that sounded mental health related by tone and individual words before disconnecting the call. To me patient states he does not know why he is in the emergency department. States that maybe it is because I had to sacrifice my cat to prove my mom was abusing it. Denies any thoughts of harming himself or others: I have no reason to. Denies AH/VH. Reports that my whole body hurts, because the world is so heavy. Denies any focal pain or recent injuries or illness. Reports having depression and maybe schizophrenia; not currently taking any medications. Reports marijuana use; denies any other recreational drug use, ingestions, or regular ETOH use. Does not participate in further history. [facility] records reviewed [facility] summarizing inpatient admission: At that time he initially presented as disorganized and paranoid, and reportedly his father had observed patient responding to internal stimuli and was told by patient that patient was having auditory hallucinations. He had been on unknown antipsychotic medications prior to that admission. Related Data Home Medications ?Medication ?Instructions ?Recorded ?Confirmed triamcinolone acetonide 0.1 % 1 applic topical BID #30 grams 10/23/23 07/19/24 topical cream Previous Rx's ?Medication ?Instructions ?Recorded triamcinolone acetonide 0.1 % 1 applic topical BID #30 grams 10/23/23 topical cream Allergies Allergy/AdvReac Type Severity Reaction Status Date / Time amoxicillin Allergy rash Verified 07/19/24 23:21 General Stated Complaint: PsychEval RIA: 2 Review of Systems Narrative: see HPI Exam Narrative Exam Narrative: General: Alert, non-toxic Head: Normocephalic, atraumatic Neck: Trachea midline, ?Neck supple. Cardiac: ?No cyanosis. Resp: No respiratory distress. Speaking in full sentences. Abd: ?Non-distended Extremities: ?No deformities.? No peripheral edema. No lacerations. Neurologic: GCS 15. ? Moves all extremities freely against gravity Psych: Labile, intermittently calm & mildly agitated.? Well groomed.? Will not answer questions about mood. Speech soft with normal rate, rythym and tone. Linear, bizarre content, some paranoia. Denies SI/HI/AH/VH. ? Does not appear to be responding to internal stimuli. Course Vital Signs Vital signs: Vital Signs Temperature 37.2 C 07/19/24 23:03 Pulse 72 07/19/24 23:03 Respiratory Rate 16 07/19/24 23:03 Blood Pressure 127/85 07/19/24 23:03 Pulse Oximetry 97 07/19/24 23:03 Temperature 37.2 C 07/19/24 23:03 Temperature Source Temporal Artery Scan 07/19/24 23:03 Pulse 72 07/19/24 23:03 Respiratory Rate 16 07/19/24 23:03 Blood Pressure 127/85 07/19/24 23:03 Blood Pressure Position Sitting 07/19/24 23:03 Pulse Oximetry 97 07/19/24 23:03 Oxygen Delivery Method Room Air 07/19/24 23:03 Oxygen Flow Rate 0 07/19/24 23:03 Medical Decision Making 23yo M with hx depression and prior psychotic behavior presenting on warrant for EE. Not currently taking any medications. Vital signs and physical exam reassuring on arrival. Minimally participatory in history. He does present as somewhat disorganized. Not clearly responding to internal stimuli. Varies between intense eye contact and staring fixedly at wall. Somewhat bizzare statements such as I had to sacrifice my cat to prove my mom was abusing it. Denies SI/HI/AH/VH; warrant for EE with multiple concerning features including threatening actions towards unnamed ex-girlfriend and reportedly when asked he was doing stated 'making my way towards a firearm'. Based on this and his behavior here I do believe he is at risk of harm to self and/or others. Medically cleared via SMART tool. Initial certification filled out and 2nd cert requested. -[facility] attempted to evaluate patient however he would not speak with them. -Offered PO zyprexa which patient declined; at this time I do not feel he warrants chemical restraint. He did have one episode of posturing during initial assessment when I asked him to show me his arms- he stated emphatically do not touch me! and made a fist. When I assured that I would not touch him, he then relaxed and did allow a skin exam. -Pt requested to review his medical record which was provided to him, on this paperwork he wrote the following things(among others): did [facility] murder ? flight [place], I am not here to train or fix, I have been recording you [facility], change the world or I will, label them or shut up. I speak on your , I was never observed for 4 years of my life. Best 4 years I think. No one cared tho, and no no one knows me, and I don't care. I charge this hospital with making (force) the people I love stop caring, and I blame [employer] for the of my dog, my cat, my grandma, my father, my sister (my step-sis), my brother, my uncle, my life and I can prove intent. Simply ask her. I have more. Patient denies to me any thoughts of harming Darcily or intent to do so, and he is currently in secure psych zone in [facility] ED. Signed out to oncoming physician; patient pending 2nd cert and placement. Quality:SDOH Health Related Social Needs: No Data to Display [facility] All Active Problems (Updated 07/20/24 @ 07:09 by Erica Wilde MD) Psychosis (Acute) Hamstring strain (Acute) Poison jono (Acute) Abdominal discomfort (Acute) Low back pain (Acute) Major depression (Chronic) ADHD (attention deficit hyperactivity disorder) (Acute) Auditory hallucination (Acute) Homicidal ideation (Acute) Insomnia (Acute) Depression with suicidal ideation (Acute) Weight loss (Acute) ? depression related - labs History of penicillin allergy (Acute 01/15/12) Family History Mother No problems noted. Father Depression Grandparent Heart disease Hyperlipidemia Mental disorder Sister No problems noted. Brother No problems noted. Social History Smoking/Tobacco Use Status: Current every day Tobacco Type: cigarettes, pipe, cigars, e-cigarettes and smokeless tobacco Smokeless tobacco user: chewing tobacco Quit status: considering quitting Second Hand Exposure: Yes Smoking risk assessment performed?: Yes Alcohol Intake: current Alcohol Intake frequency: holidays/special occasions only Drug use: Daily Substance use type: marijuana Caregiver/Support person: No Household members: family Housing: house Communication Needs: Corrective Lenses Do you need help understanding health information?: Never Pets and animals: Yes Pets and animals: cat(s) Sexually active: Yes Do you think of yourself as: straight/heterosexual Current gender identity: male How often do you talk on the phone with friends or family?: once per week How often do you get together with friends or relatives?: twice per week Do you belong to any clubs or organized social groups?: no Panel score (0-1 are the most socially isolated patients): 1 What type of physical activity do you participate in: walking, weight lifting and running Duration: 15-30 minutes/day Frequency: 3-4 times per week Edna/Hoahaoism: Athiest Seatbelt use: always Helmet use: Yes Helmet use: always Drive intox or ride w/intox regional company truck driver: No Do you feel safe at home: Yes Do you feel safe in your relationship?: Yes
[2024-07-20 00:21] LABS: *AMPHETAMINES SCREEN URINE Negative (Negative); *BARBITURATES SCREEN URINE Negative (Negative); *BENZODIAZEPINES SCREEN URINE Negative (Negative); Cannabinoids THC Positive (Negative); Cocaine Screen,Urine Negative (Negative); METHADONE URINE SCREEN Negative (Negative); OPIATES URINE SCREEN Negative (Negative); Tricyclic Antidepressants Negative (Negative)
--- NOTE | 2024-07-20 00:34 | PDOC.MHCN_ITS ---
Date of service: 07/19/24 Time of Service: 23:27 Mental Health Emergency Note Release [facility] release signed:: Yes Reason for Visit Client is known to [facility] In the last 2 weeks has the pt presented for ES prior to today?: Unknown Client Information Client is: Adult Outpatient Well Housed: Yes Non Suicidal Self Injury Current: No History: No Safety Risk/Harm to Self or Others Current Ideation to Harm Self or Others: No Risk: Does risk to harm exist?: No Risk: N/A Duty to warn indicated: No Asssessment/Mental Status Appearance: Unremarkable Attitude: Other (uncooperative) Behavior: Gait disturbances Speech: Soft Affect: Other ( client would not engage with this automatic typewriter inspector and reports that the hospital is deemed an emergency situation so he cannot talk ) Mood: Other ( client would not engage with this automatic typewriter inspector and reports that the hospital is deemed an emergency situation so he cannot talk ) Thought process: Other Hallucinations: No evidence ( client would not engage with this automatic typewriter inspector and reports that the hospital is deemed an emergency situation so he cannot talk ) Delusions: No evidence ( client would not engage with this automatic typewriter inspector and reports that the hospital is deemed an emergency situation so he cannot talk ) Attention: Unremarkable Perception: Not impaired Orientation: Fully orientated Memory: Intact Insight: Poor Judgement: Poor Neurovegetative Symptoms Sleep: No change Appetitie: No change Interests: No change Energy: No change Libido: Not applicable Substance Use: Do you use nicotine?: No Have you used substances in the last 7 days?: No Additional Issues: Assaultive/Threatening Behavior: No Medical Concerns: No Client engaged in active self harm w/weapon: No Threatening to run away: No Child reported abuse/neglect: No Voluntarily presenting for services: No Domestic violence is a concern: No Extreme Psychosis or extreme behavior is present: Yes Impression client would not engage with this automatic typewriter inspector and reports that the hospital is deemed an emergency situation so he cannot talk Plan/Disposition Recommended Disposition: Hospitalization (Referrals will be sent on 07/19 once all paperwork has been received) facilities contacted. Plan: Client will remain in ED until involuntary treatment can be secured. Client will be seen by [facility] psychiatrist. Client will also be seen by [facility] 2x daily Person reported agreement to plan: No Reports/communication Outcome discussed with: ED/Personnel
--- NOTE | 2024-07-20 03:13 | NUR.NOTE ---
[facility] called and declined this pt .
--- NOTE | 2024-07-20 07:35 | W.EDPROG ---
Date of service: 07/20/24 Time of Service: 07:35 Medical Decision Making I received signout on this 23-year-old male with bizarre behavior and statements. He has a history of similar during admission to [facility] but not this bad before. EEd, pending 2nd cert. He has a psychiatric consultation pending. I ordered a regular diet on safety tray. He is not taking medications at the moment. 10:15 AM I was in touch with Dr. Avina from psychiatry who evaluated the patient and noted that that he was psychotic and paranoid for which she recommended twice daily treatment with 1 mg risperidone which I ordered in place of olanzapine. It is unclear whether or not patient well be adherent with this recommended therapy. 3:52 PM Patient had a second certification by psychiatrist who stated that the patient was appropriate for involuntary placement. Reportedly the legal team at [facility] did not uphold the second certification. Will reach out to them. 4:30 PM I spoke with Michael Guy from the [facility]. He reported that despite [facility] felt that the patient would benefit from involuntary the legal team did not feel that the patient met criteria. I spoke with Leticia anaya from [facility]. They will attempt to reengage with the patient's former girlfriend to obtain additional information to file a new EE with the state. If this is not feasible then they will meet with the patient to discuss possibility of going voluntarily. 5:45 PM I spoke with Leticia from [facility]. She was unable to obtain additional information to refile any. She made a safety plan for the patient. She reached out to the patient's mother and patient's former girlfriend and advised them that patient was to be discharged. I met with the patient. He denied suicidal and homicidal ideation. He was alert and oriented. I advised that he should return if he had any other concerns. He told me that he wanted to speak with me at length about marijuana use. I advised that he could contact the hospital with any ongoing questions. I offered him medications and he declined. He had not taken his risperidone. I advised PCP follow-up as he has a PCP listed in the system. He will benefit from follow-up in the next several days. [facility] services will also help to arrange outpatient follow-up. Quality:SDOH Health Related Social Needs: No Data to Display Discharge Plan Disposition Patient Disposition: Home Discharge Details Chief Complaint: PsychEval Clinical Impression: Psychosis Primary Care Provider: Donavan Venegas ED Provider: Naman Pathak Home Meds and New Rx's Prescriptions: No Action triamcinolone acetonide 0.1 % cream 1 applic topical BID Qty: 30 1RF Discharge Instructions Additional Instructions: You are seen in the emergency department. You were screened by [facility] human services. Please follow-up with your primary care provider. Please return to the emergency department if you do not feel safe at home or if you have any other concerns.
--- NOTE | 2024-07-20 10:15 | PSYCO_ITS ---
Date of service: 07/20/24 Time of Service: 10:15 Summary Note PSYCHIATRY CONSULT NOTE: INITIAL EVALUATION Date/Time:?07/20/2024 10:13:43 AM Name:Jammie Duran :?2000 Location of the patient:?[facility] ED Consulting Array Clinician:?Aime Calvillo Location of the clinician:?DE Length of Consult:?45 minutes SUMMARY 23-year-old male, with history of psychotic disorder, depressive disorder, current cannabis use, history of disruptive behavior, homicidal ideation, history of psychiatric hospitalization, with no history of self-harming/suicidal behavior. Patient presented after making a variety of odd threats to other people that he is not supposed to have contact with including verbal as well as in the form of photographs. He was subsequently brought in to the ER for assessment where he was found to be disorganized and psychotic. Patient has been screened by [facility] and recommended for inpatient admission. When seen by myself he is rambling, disorganized, and paranoid. He is convinced that he is in an unsafe situation and the [facility] government as well as hospital are involved. He wants to be extradited to another country and insists that he needs to be released immediately. He exhibits poor insight, impulse control, and judgment is clearly paranoid and psychotic. Patient requires inpatient hospitalization for safety, assessment, and stabilization. He is appropriate for involuntary commitment given his poor insight and severity of symptoms.Patient presently meets criteria for inpatient psychiatric hospitalization. Working Diagnoses:? F12.10 Cannabis abuse, uncomplicated; F20.9 Schizophrenia, unspecified Rule Out Diagnoses:? CPT Codes:?91171 - Psychiatric Diagnostic Evaluation with Medical Services PLAN Disposition:?Involuntary admission when medically stable ? Observation level ? Psychiatric 1:1 needed??No psych 1:1 needed Work-up:? Pharmacological:? * risperidone 1 mg PO 2x daily for psychosis * olanzapine 5mg?PO/IM Q6h PRN agitation, avoid concomitant use of benzo within 1 hour of IM olanzapine * Is patient psychotic? - Yes; Were antipsychotic medications started? - Yes * Informed consent: Patient is unable to understand risks benefits of or consent to above recommended psychiatric medications in their current mental state. No surrogate decision maker is available. Without recommended medication patient will likely deteriorate further and possibly place themselves or others at risk. Patient is not legally compelled to take recommended medication at this time. Follow up needed while in the hospital??As needed for management of behavior or change in mental status Other:? * Parts of this note were dictated using voice recognition software and may contain small irregularities and grammatical errors which are unintentional. * If questions arise about the psychiatric care of this patient, please call the [facility]?to request a follow-up consult. ?Please do not contact me individually through the EMR chat as I am not?regularly logged on to?this system. The psychiatrist for the follow-up visit may be a different psychiatrist Discussed plan with onsite pipe or steam fitter furnace installer:?Yes - Naman Pathak MD HISTORY This evaluation was conducted remotely with the assistance of onsite staff via HIPAA-compliant video call. Patient consented to proceed with the telehealth visit. Requested by:? Sources of information:?Patient, medical record History of Present Illness:? 23-year-old male, living with family, single, employed, with history of psychotic disorder, depressive disorder, current cannabis use, history of disruptive behavior, homicidal ideation, history of psychiatric hospitalization, with no history of self-harming/suicidal behavior, . UDS positive for cannabis, Alcohol undetectable. In the hospital, patient has been in behavioral control with no reported issues. Patient presented to the emergency department 07/20/2024 on warrant for emergency evaluation. He has posted multiple images, including self-images, to friends showing threatening behavior, bleeding from the face and mouth. He has contacted several people to find personal information about individuals he is not permitted to contact.. With those messages he has concluded threatening images as well as recording of a song called [employer]. He is making delusional and tangential comments. Patient's behavior has been confirmed with several peers. He has a history of mental illness, noncompliant with medications. He has been more paranoid, cutting his arms again and stated to a friend who was checking in on him that he is making my way towards a firearm. He currently has access to firearms at home. Patient also called [facility] police today, making unintelligible statements and then disconnecting the call. When seen by the provider he could not say why he was there but says maybe it is because I had to sacrifice my cat to prove my mom was abusing it. He denies all symptoms but reports my whole body hurts, because the world is so heavy. He reports depression and maybe schizophrenia. He does have a history of admission to [facility] for similar presentation and disorganization, paranoia, and hallucinations. [facility] attempted to evaluate the patient however he was uncooperative. He refused p.o. Zyprexa in the ED. He had 1 episode of posturing toward the provider when they wanted to examine his arms. Pt requested to review his medical record which was provided to him, on this paperwork he wrote the following things(among others): did [facility] murder ? flight 2 [place], I am not here to train or fix, I have been recording you [facility], change the world or I will, label them or shut up. I speak on your , I was never observed for 4 years of my life. Best 4 years I think. No one cared tho, and no no one knows me, and I don't care. I charge this hospital with making (force) the people I love stop caring, and I blame Jay Zepeda for the of my dog, my cat, my grandma, my father, my sister (my step-sis), my brother, my uncle, my life and I can prove intent. Simply ask her. I have more.. On psychiatric evaluation, patient is unreliable, disorganized, cooperative, alert, pleasant, able to give clear history. he gives me 5 different names, then starts to ramble about being in an unsafe situation, and feels he is surrounded by terrorists or a militia organization. he wants his father to remove me. he has been messaging people within my state and when I messaged another country and within 24 hours I am in handcuffs . he feels the is a terrorist organization and he wants to be extradited to another country immediately. He doesnt care what country but someplace warm I guess, I need to take into consideration my cat so I need to think. He says he ?read the warrant for my entrapment and he doesnt feel it was legitimate and thought it was written by a scammer. he feels he isnt safe at any hospital. He feels the mental health system is set up to entrap people. he says he 'called the hemstitcher on my mother and woke up to 4 hemstitcher putting me in handcuffs. He wants to nelda the police station for neglect of my mother. he says his mother every day has to question who I am due to how the government and hospital faculty have treated her and myself. He feels the workers here dont know how long theyve been here. Admits to [facility], but unclear what. He disagrees with the assessment and denies the interpretation of the evaluations. he then becomes very paranoid about the sheriff's sergeant, tells me he feels I have ill will toward hiom and states he will be sending police to you to investigate you.. Collateral Contacted No-- patient meets criteria for inpatient hospitalization. PSYCHIATRIC REVIEW OF SYSTEMS (symptoms in past two weeks) Pertinent Positives:?agitation/auditory hallucinations/visual hallucinations/paranoia/anxiety/impulsivity Pertinent Negatives:?no depressed mood/no anhedonia/no hopelessness/no insomnia/no irritability/no aggressive behavior/no command hallucinations/no panic attacks PSYCHIATRIC HISTORY Past Psychiatric Diagnoses/Problems:?psychotic disorder, depressive disorder Psychiatric Treatment:?Hospitalizations:?psychiatric hospitalization ???Other Past treatment:?medication management ???Current treatment:?no reported current psychiatric treatment; treatment non- adherent Drug/Alcohol History ???Current excessive drug/alcohol use:?cannabis ???Past excessive drug/alcohol use:?none ???Drug/alcohol use comment:?Treatment:?none ???Withdrawal symptoms:?none ???UDS results:?UDS positive for cannabis ???BAL results:?undetectable ???Active withdrawal Protocol:? Stressors:?treatment non-adherence, exacerbation of mental illness Trauma:?unknown Family Psychiatric History:?unknown HEALTH HISTORY Medical Problems:? deemed medically stable Is patient linked with PCP? Psychiatric and other clinically relevant medications:?none Allergies/Adverse Medication Reactions:?Amoxicillin Physical Findings:? 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 In the past two weeks, have you felt down, depressed, or hopeless??NO 2. In the past two weeks, have you had thoughts of killing yourself??NO 3. In your lifetime, have you ever attempted to kill yourself??NO 3a. Within the past 6 months??NO ESS-6 Secondary Screen ( If #2 is yes or #3a is yes within the past 6 months, then complete secondary screen) 1. Positive on PSS-3 questions 2 & 3 ? active suicidal ideation with a past attempt??Screen not applicable 2. Have you been thinking about how you might kill yourself??Screen not applicable 3. Have you had some intention of acting on your thoughts??Screen not applicable 4. Lifetime psychiatric hospitalization??Screen not applicable 5. Has drinking or substance abuse ever been a problem for you??Screen not applicable 6. Current irritability, agitation, or aggression??Screen not applicable PSS-3/ESS-6 Secondary Screen Scoring:?Low Risk-PSS3 screen negative PSS-3/ESS-6 Scoring Interpretation Legend PSS-3 screen incomplete [Blank PSS-3 questions #2 OR #3a] PSS-3 screen unable to assess [Unable to Assess responses on PSS-3 questions #2 AND #3a] Mild [No current attempt AND No suicide plan or intent AND Score (0-2)] Moderate [No current attempt AND Active suicidal ideation with plan or intent (not both) OR Score (3-4)] Severe [Current attempt OR Suicide plan and intent OR Score (5-6)] HI/Violence/Property Destruction:?Yes Access to Firearms:?unknown; Patient indicated to ED he has firearms, status unknown. Grave disability/Poor self-care:?no Psychosis:?Yes Protective Factors:?identifies reasons for living; future orientation High Utilization Criteria:?none Signs of Secondary Gain:?none MENTAL STATUS EXAM Appearance and Attire:? Normal, Good eye contact, Well groomed Psychomotor agitation:? No abnormality Attitude and behavior:? Cooperative Speech:? No abnormality Mood:? Anxious Affect:? Constricted Thought Process:? Not linear, Not logical, Flight of ideas Thought content:? No suicidal ideation, No homicidal ideation, Paranoia, Delusions, Ideas of persecution Perception:? Auditory hallucinations, Visual hallucinations, shadows and light have gotten wierd Intelligence:? Average Abstraction:? Appropriate Language:? No abnormality Orientation:? Oriented x 4 Sensorium:? Normal Knowledge:? Appropriate for education and socioeconomic status Memory:? Intact Insight:? Severe impairment Judgment:? Severe impairment SUMMARY RISK ASSESSMENT Current Suicide Risk Elevated??PSS-3/ESS-6 Scoring: Low Risk-PSS3 screen negative? Current Violence Risk Elevated??undetermined Issues with ability to care for self.?No Aime Calvillo, , [facility]
[2024-07-20] MEDS: Nicotine 21 MG/24 HR PATCH TD (13:50)
--- NOTE | 2024-07-20 13:59 | PDOC.MHCN ---
Date of service: 07/20/24 Time of Service: 11:00 PHQ-9 Over the last 2 weeks, how often have you been bothered by any of the following problems? 1. Little interest or pleasure in doing things: several days 2. Feeling down, depressed, or hopeless: several days 3. Trouble falling or staying asleep, or sleeping too much: not at all 4. Feeling tired or having little energy: not at all 5. Poor appetite or overeating: several days 6. Feeling bad about yourself - or that you are a failure or have let yourself and your family down: not at all 7. Trouble concentrating on things, such as reading the newspaper or watching television: not at all 8. Moving or speaking so slowly that other people could have noticed? - Or the opposite - being so fidgety or restless that you have been moving around a lot more than usual: several days 9. Thoughts that you would be better off or of hurting yourself in some way: not at all Total score: 4 Source: Developed by Drs. Armond Will, Moira Jay, Lito Armas and colleagues, with an educational kayy from [employer]. Suicide Severity Rate CSSRS Have you wished you were or wished you could go to sleep and not wake up?: No Have you actually had any thoughts of killing yourself?: Yes CSSRS2 Have you been thinking about how you might do this?: Yes Have you had these thoughts and had some intention of acting on them?: No Have you started to work out or worked out the details of how to kill yourself? Do you intend to carry out this plan?: No CSSRS3 Have you ever done anything, started to do anything or prepared to do anything to end your life?: Yes CSSRS4 Was this within the past three months?: No Screening Score Total Score: 4 Screening: Positive Mental Health Emergency Note Release [facility] release signed:: No Reason for Visit delusional and paranoid thinking with severe depression, client thinks he has none of these mental health concerns In the last 2 weeks has the pt presented for ES prior to today?: No Client Information Client is: Adult Outpatient Well Housed: Yes Non Suicidal Self Injury Current: No History: yes, unknown but has been suicidal in past Risk: Does risk to harm exist?: yes. Access to means: Yes. Details: works on a farm . Risk: High Risk (has made threats against girlfriend in texts with pictures) Duty to warn indicated: No Asssessment/Mental Status Appearance: Unremarkable Attitude: Guarded (low tone voice almost in audible) Behavior: Agitated Speech: Soft, Slow, Incoherent and Hesitant Affect: Blunted, Constricted and Flat Mood: Sad, Depressed, Irritable and Angry Thought process: Loose associations and Poverty of content Hallucinations: No Delusions: yes, Persectory/Paranoid Attention: Poor concentration Perception: Derealization (clients does not understand why he is hospitalized and believes no one as we all work for [employer] which is not to be trusted) Orientation: Fully orientated Memory: Intact Insight: Poor Judgement: Poor Neurovegetative Symptoms Sleep: No change Appetitie: Decrease Interests: Decrease Energy: Decrease Libido: Not applicable Substance Use: Other Drug Issues: Other (THC daily use) Do you use nicotine?: Yes Have you used substances in the last 7 days?: yes, daily Additional Issues: Assaultive/Threatening Behavior: No Medical Concerns: No Client engaged in active self harm w/weapon: No Threatening to run away: No Child reported abuse/neglect: No Voluntarily presenting for services: No Domestic violence is a concern: No Extreme Psychosis or extreme behavior is present: Yes Resources Reosurces reviewed and given:: Other (unwilling to discuss resources) Plan/Disposition Recommended Disposition: Hospitalization facilities contacted. Plan: Client will wait on an EE until he brought to inpatient care Person reported agreement to plan: No Facilities contacted if Applicable [facility] Not accepted, No bed available [facility] Not accepted, No bed available, [facility] Not accepted, No bed available Reports/communication Outcome discussed with: ED/Personnel
[2024-07-20 15:55] VITALS: BP 127/85; PULSE 72; RESP 16; TEMP 37.2; O2SAT 97
--- NOTE | 2024-07-20 16:20 | NUR.NOTE ---
Nursing Note: Pt denies suicidal ideation/ homicidal ideation. Pt states, I want to leave, I want to speak to the boss that can release me. This senior underwriter asks patient what would will he do if he is released and where he will go. Pt states, I have a place near my old address where i will be away from people who are against me. This senior underwriter ask patient, would he hurt anyone if he were to leave, Pt states, no I wouldn't. This senior underwriter ask patient would he be willing to go to [facility] [place]. Pt states, yea if MAMA is there, This senior underwriter asks who MAMA is. Pt states she is someone who helps out. This senior underwriter inspects patients bilateral wrist and forearms for self inflicted wounds. No wounds noted at this time.
--- NOTE | 2024-07-20 17:52 | CMSP_ITS ---
Date of service: 07/20/24 Time of Service: 17:53 Care Management Safety Plan Status Status: Involuntary Reason for Wait Reason for Wait: Inpatient Admission Safety Plan Safety Plan: INVOLUNTARY FOR INPATIENT PSYCHIATRIC STABILIZATION.? Patient is appropriate in all interactions since arriving at [facility]; Pt has demonstrated appropriate coping and communication skills, has articulated his or her needs and concerns and is fully engaged during staff interactions. Safety plan has been established with patient, and care team, to adhere to patient goals, identify restrictions based on behavioral status, address nutrition, and determine allowed personal belongings, tools for hygiene and personal care. Determine level of activity including ambulation, level of supervision, visitors, and determine privileges based on behaviors and level of engagement by pt. SAFETY PLAN: 1. Will remain on suicide precautions, in paper clothes 2. Will remain in Zone B under direct supervision of one-on-one staff at all times provided by [employer]; WILLIAM, FUSION OPERATOR 3d animator. 3. May have paper cups, plates, finger foods as well as a cardboard spoon with which to eat meals. 4. Follow [facility] Management of the Admitted Behavioral Health Patient policy. 5. Shower available in Zone B without restriction. 6. Personal belongings-soft items permitted at RN discretion. 7. Visitors-none at this time. 8. Activities: soft cart items approved per RN discretion. 9.? Bathroom available in Zone B without restriction. 10. Phone: limited to [facility] cordless phone at RN discretion. Due to INVOLUNTARY status, patient is being held at [facility] by the Department of Mental Health ([facility]) until 2nd certification by [facility] Psychiatrist can be performed (within 24 hours). Staff will provide de-escalation support (CPI) as needed. If patient wishes to leave [facility], staff will contact [facility] Crisis Screener ([phone]) and [facility] ([phone]) as soon as possible. In the event of elopement, notify [place] [employer] Police ([phone]). Patient is currently involuntarily at [facility]. [facility] Frontline Nurse Practitioner Hospitalist will continue seeking placement. Please contact the [employer] for any needed changes to Safety Plan. Safety plan has been provided to interdepartmental care team. Patient will be transported by [employer] at time of discharge.
--- NOTE | 2024-07-20 17:52 | PDOC.CMSAFE ---
Date of service: 07/20/24 Time of Service: 17:53 Care Management Safety Plan Status Status: Involuntary Reason for Wait Reason for Wait: Inpatient Admission Safety Plan Safety Plan: INVOLUNTARY FOR INPATIENT PSYCHIATRIC STABILIZATION.? Patient is appropriate in all interactions since arriving at [facility]; Pt has demonstrated appropriate coping and communication skills, has articulated his or her needs and concerns and is fully engaged during staff interactions. Safety plan has been established with patient, and care team, to adhere to patient goals, identify restrictions based on behavioral status, address nutrition, and determine allowed personal belongings, tools for hygiene and personal care. Determine level of activity including ambulation, level of supervision, visitors, and determine privileges based on behaviors and level of engagement by pt. SAFETY PLAN: 1. Will remain on suicide precautions, in paper clothes 2. Will remain in Zone B under direct supervision of one-on-one staff at all times provided by [employer]; WILLIAM, GENERAL INTERNIST felt hat mellowing machine operator. 3. May have paper cups, plates, finger foods as well as a cardboard spoon with which to eat meals. 4. Follow [facility] Management of the Admitted Behavioral Health Patient policy. 5. Shower available in Zone B without restriction. 6. Personal belongings-soft items permitted at RN discretion. 7. Visitors-none at this time. 8. Activities: soft cart items approved per RN discretion. 9.? Bathroom available in Zone B without restriction. 10. Phone: limited to [facility] cordless phone at RN discretion. Due to INVOLUNTARY status, patient is being held at [facility] by the Department of Mental Health ([facility]) until 2nd certification by [facility] Psychiatrist can be performed (within 24 hours). Staff will provide de-escalation support (CPI) as needed. If patient wishes to leave [facility], staff will contact [facility] Crisis Screener ([phone]) and Program Consultant ([phone]) as soon as possible. In the event of elopement, notify [place] [employer] Police ([phone]). Patient is currently involuntarily at [facility]. [facility] Frontline Nurse Anesthesia Program Director will continue seeking placement. Please contact the Program Consultant for any needed changes to Safety Plan. Safety plan has been provided to interdepartmental care team. Patient will be transported by [employer] at time of discharge.
--- NOTE | 2024-07-20 17:55 | CMPROGNOTE_ITS ---
Date of service: 07/20/24 Time of Service: 17:55 Care Management Progress Note Progress Note Text Progress Note Text: CM met with ED staff to discuss [place]'s plan of care. Per [facility], [place] was brought to the ED on a MH warrant to be held involuntarily. He was expressing HI, delusional behaviors and paranoia. Per RN, he continues to have delusional thoughts and paranoia today, but denies HI. He had his second certification this afternoon, at which the psychiatrist felt he was appropriate for involuntary placement, but the legal team at [facility] did not uphold the certification. He was discharged to the community, as he was not interested in remaining voluntarily. He will follow up with his PCP in the community; CM will continue to follow. Social Determinants of Health Screening Will the Patient Participate in the Screening?: Unable to obtain
== END 2024-07-20 18:03 | disposition home or self-care (01) ==
PROVIDERS: Student in an Organized Health Care Education/Training Program; Emergency Provider Emergency Medicine; PCP Nurse Practitioner Family
DX: F29 Unspecified psychosis not due to a substance or known physiological condition (principal); F12.10 Cannabis abuse, uncomplicated; F32.A Depression, unspecified; F17.210 Nicotine dependence, cigarettes, uncomplicated; F17.290 Nicotine dependence, other tobacco product, uncomplicated
CPT/HCPCS: 00123; 80307; 96127; 99285

== ENCOUNTER 2024-11-20 17:21 | Emergency (ER) | payer MEDICAID, SELFPAY ==
[2024-11-20 17:22] VITALS: BP 116/72; PULSE 82; RESP 18; TEMP 37.2; O2SAT 98
--- NOTE | 2024-11-20 17:48 | ED.GENADUL_ITS ---
Discharge Plan Disposition Patient Disposition: Home Condition: Stable Discharge Details Clinical Impression: Pain, dental Primary Care Provider: Donavan Venegas ED Provider: Talat Woo Home Meds and New Rx's Prescriptions: New clindamycin HCl 150 mg capsule 450 mg PO TID 7 Days Qty: 63 0RF Discontinued triamcinolone acetonide 0.1 % cream 1 applic topical BID Qty: 30 1RF Discharge Instructions Additional Instructions: You can take 1000 mg of acetaminophen and 600 mg of ibuprofen every 6 hours as needed. I would recommend trying to get set up with a dentist who can then refer you to an oral surgeon if needed. If you feel more ill or have new symptoms such as high fevers return to the emergency department for reevaluation. HPI General Mode of arrival: ambulatory . Date/Time Provider Initiated Documentation: 11/20/24 17:25 . Limitations to Documentation: no limitations . Information obtained by: patient . History of Present Illness 23 year old M presents to the emergency department with the chief complaint of dental pain, described as moderate, Patient started experiencing this year(s) (3) and it has been constant. No relieving factors improve symptom(s), No exacerbating factors reported . Patient notes no other symptoms.. Patient did receive the following treatments prior to arrival, none Related Data Home Medications ?Medication ?Instructions ?Recorded ?Confirmed clindamycin HCl 150 mg capsule 450 mg (3 x 150 mg) PO TID 7 days 11/20/24 #63 caps Previous Rx's ?Medication ?Instructions ?Recorded clindamycin HCl 150 mg capsule 450 mg (3 x 150 mg) PO TID 7 days 11/20/24 #63 caps Allergies Allergy/AdvReac Type Severity Reaction Status Date / Time amoxicillin Allergy rash Verified 11/20/24 17:25 General Stated Complaint: DentalOral RIA: 4 Review of Systems All systems reviewed & are unremarkable except as noted in HPI and below Constitutional Constitutional: Denies chills, Denies fever(s) and Denies weakness ENT Ears, Nose, Mouth, and Throat: Reports dental pain Cardiovascular Cardiovascular: Denies chest pain and Denies dyspnea Respiratory Respiratory: Denies cough and Denies dyspnea Gastrointestinal Gastrointestinal: Denies vomiting Neurologic Neurologic: Denies weakness Exam Const General: no acute distress Orientation: alert HENMT Head: normal to inspection General nose exam: external nose normal Mouth: oral mucosae normal, moist mucous membranes, no trismus and No restricted motion Throat: posterior oropharynx normal and uvula midline Eyes General: appearance normal, both eyes and all related structures Neck Neck: normal visual inspection Resp Effort & Inspection: normal respiratory effort and able to speak in complete sentences Cardio Rate: regular rate Skin General skin exam: no rashes or lesions noted Neuro General: patient alert and patient oriented x3 Extrem General: normal to inspection Psych Mental Status: mental status grossly normal Course Vital Signs Vital signs: Vital Signs Temperature 37.2 C 11/20/24 17:22 Pulse 82 11/20/24 17:22 Respiratory Rate 18 11/20/24 17:22 Blood Pressure 116/72 11/20/24 17:22 Pulse Oximetry 98 11/20/24 17:22 Temperature 37.2 C 11/20/24 17:22 Temperature Source Oral 11/20/24 17:22 Pulse 82 11/20/24 17:22 Respiratory Rate 18 11/20/24 17:22 Blood Pressure 116/72 11/20/24 17:22 Pulse Oximetry 98 11/20/24 17:22 Oxygen Delivery Method Room Air 11/20/24 17:22 Oxygen Flow Rate 0 11/20/24 17:22 Pain Level 9 11/20/24 17:22 Medical Decision Making 23-year-old male comes in with oral pain he states has had for years but has worsened on the right side the past few days. He says he believes he has impacted wisdom teeth put has not seen anyone to address this. He denies any fevers, chills, vomiting. He is well-appearing on exam. He has no stridor or drooling and is talking in breathing normally. He has no visible periapical abscess on exam, there is no eroded teeth, he localizes the pain to the right posterior upper and lower molars. Posterior pharynx is normal. He has no submandibular swelling. I suspect his pain could be due to wisdom teeth felt given it is worse in the past few days I will treat empirically with antibiotics. He is allergic to amoxicillin so we will start him on clindamycin. I advised he should follow-up with dentist who can do the proper imaging s tudies and refer him to an oral surgeon if needed. He is stable for discharge and return precautions given Differential Diagnosis Differential Diagnosis: Impacted wisdom teeth, dental infection [facility] All Active Problems (Updated 11/20/24 @ 17:53 by Talat Woo MD) Pain, dental (Acute) Hamstring strain (Acute) Poison jono (Acute) Abdominal discomfort (Acute) Low back pain (Acute) Major depression (Chronic) ADHD (attention deficit hyperactivity disorder) (Acute) Auditory hallucination (Acute) Homicidal ideation (Acute) Insomnia (Acute) Depression with suicidal ideation (Acute) Weight loss (Acute) ? depression related - labs History of penicillin allergy (Acute 01/15/12) Family History Mother No problems noted. Father Depression Grandparent Heart disease Hyperlipidemia Mental disorder Sister No problems noted. Brother No problems noted. Social History Smoking/Tobacco Use Status: Current every day Tobacco Type: cigarettes, pipe, cigars, e-cigarettes and smokeless tobacco Smokeless tobacco user: chewing tobacco Quit status: considering quitting Second Hand Exposure: Yes Smoking risk assessment performed?: Yes Alcohol Intake: current Alcohol Intake frequency: holidays/special occasions only Drug use: Daily Substance use type: marijuana Caregiver/Support person: No Household members: family Housing: house Communication Needs: Corrective Lenses Do you need help understanding health information?: Never Pets and animals: Yes Pets and animals: cat(s) Sexually active: Yes Do you think of yourself as: straight/heterosexual Current gender identity: male How often do you talk on the phone with friends or family?: once per week How often do you get together with friends or relatives?: twice per week Do you belong to any clubs or organized social groups?: no Panel score (0-1 are the most socially isolated patients): 1 What type of physical activity do you participate in: walking, weight lifting and running Duration: 15-30 minutes/day Frequency: 3-4 times per week [place]/Religious: Athiest Seatbelt use: always Helmet use: Yes Helmet use: always Drive intox or ride w/intox dolly driver: No Do you feel safe at home: Yes Do you feel safe in your relationship?: Yes
[2024-11-20] MEDS: Clindamycin 150 MG CAP 450 MG PO (17:59)
== END 2024-11-20 18:09 | disposition home or self-care (01) ==
LOC: ER 18:08
PROVIDERS: Emergency Provider Emergency Medicine; PCP Nurse Practitioner Family
DX: K08.89 Other specified disorders of teeth and supporting structures (principal); F17.210 Nicotine dependence, cigarettes, uncomplicated; F17.220 Nicotine dependence, chewing tobacco, uncomplicated; F17.290 Nicotine dependence, other tobacco product, uncomplicated
CPT/HCPCS: 99283